=== PATIENT | female | born 1955 | race Caucasian/White ===

== ENCOUNTER → 2017-08-03 | Outpatient (CLI) | payer MEDICARE ==
[~2017-08-03] MED LIST: ACET325 PO; ALUM320SU PO; AMOCLA500 PO; AMOCLA875 PO; ARANESP INJ; ASCO500 PO; ATOR10 PO; Bactrim Ds Tab1 EACH PO; CALCA400CH PO; CALCAVITDA PO; CEPH500 PO; CITA20 PO; CLON.5 PO; Citalopram HBr40 MG PO; ESCI5 PO; FLORINEF; FLUD.1 PO; Ferus150 MG PO; Fludrocortison0.1 MG PO; Humalog100 UNIT/1; Humalog100 UNIT/1 SC; INSLI100I; INSULANPEN SQ; LEVFLO500 PO; LOPE2C PO; LOSA50 PO; MAGOXI400 PO; MELA3 PO; METO10 PO; METO5A PO; MIDO2.5 PO; MIDO5 PO; Midodrine HCl5 MG PO; NOVOLOG PUMP; OMEP20ER PO; ONDA4 PO; OXYACE5T PO; PANT40 PO; PRAV20 PO; PROC10 PO; PROC25S PR; PROM25; PROM25 PO; Polysaccharide150 MG PO; Prednisone20 MG PO; SUCR1SU PO; ZALE5 PO; ZYRTEC10 M2 PO; Zofran Odt4 MG SL; Zofran Odt8 MG SL; [UNRECOGNIZED DRUG - OTHER]
[2017-08-03 12:11] LABS: BASOPHILS ABSOLUTE AUTO 0.03 K/mm3 (0.00-0.23); BASOPHILS PERCENT AUTO 1 % (0-2); EOSINOPHILS ABSOLUTE AUTO 0.07 K/mm3 (0.00-0.68); EOSINOPHILS PERCENT AUTO 2 % (0-6); Hematocrit 39.9 % (33.0-51.0); Hemoglobin 13.6 g/dL (11.5-16.0); IMMATURE GRAN PERCENT AUTO 0 % (0-1); LYMPHOCYTES ABSOLUTE AUTO 1.26 K/mm3 (0.84-5.20); LYMPHOCYTES PERCENT AUTO 32 % (21-46); MONOCYTES ABSOLUTE AUTO 0.32 K/mm3 (0.16-1.47); MONOCYTES PERCENT AUTO 8 % (4-13); Mean Corpuscular HGB 35.9 pg (26.0-34.0); Mean Corpuscular HGB Conc 34.1 g/dL (31.5-36.5); Mean Corpuscular Volume 105 fL (80-100); NEUTROPHILS ABSOLUTE AUTO 2.29 K/mm3 (1.96-9.15); NEUTROPHILS PERCENT AUTO 58 % (41-73); RDW Coefficient Variation 14.2 % (11.7-14.2); RDW Standard Deviation 55.1 fL (35.1-46.3); Red Blood Cell Count 3.79 M/mm3 (3.80-5.20); White Blood Cell Count 3.97 K/mm3 (4.00-11.30)
[2017-08-03 12:32] LABS: Alanine Aminotransfer (ALT/SGP 46 U/L (12-78); Albumin, Blood 4.2 g/dL (3.4-5.0); Albumin/Globulin Ratio 1.1 (0.8-1.8); Alk Phos 78 U/L (40-126); Anion Gap 10 mmol/L (6-16); Aspartate Aminotrans (AST/SGOT 34 U/L (12-37); Bilirubin, Total 0.7 mg/dL (0.1-1.0); Blood Urea Nitrogen 66 mg/dL (8-24); Bun/Creatinine Ratio 23.4 (12.0-20.0); CO2, Blood 27 mmol/L (21-32); CPK Creatine Kinase 47 U/L (26-192); Calcium, Blood 9.6 mg/dL (8.5-10.1); Chloride, Blood 105 mmol/L (98-108); Creatinine, Blood 2.82 mg/dL (0.40-1.00); Free Thyroxine 1.88 ng/dL (0.70-1.60); Globulin, Blood 3.7 g/dL (2.2-4.0); Glomerular Filtration Rate 17 (60-); Glucose, Blood 98 mg/dL (70-99); Potassium, Blood 4.2 mmol/L (3.5-5.5); Sodium, Blood 142 mmol/L (136-145); Thyroid Stimulating Hormone 2.169 uIU/mL (0.360-4.800); Total Protein, Blood 7.9 g/dL (6.4-8.2); Troponin I <0.017 ng/mL (0.000-0.040)
[2017-08-03 13:33] LABS: Mean Platelet Volume 12.2 fL (9.1-12.4); Platelet Count 190 K/mm3 (150-400)
[2017-08-04 12:44] LABS: Antinuclear Antibody Screen Negative (Negative)
== END | disposition home or self-care (01) ==
LOC: LAB EV 12:04 → LAB SHORT 12:04
PROVIDERS: General Practice
DX: E05.90 Thyrotoxicosis, unspecified without thyrotoxic crisis or storm (principal); R41.82 Altered mental status, unspecified; R53.83 Other fatigue
CPT/HCPCS: 80053; 82550; 84439; 84443; 84481; 84484; 85025; 85651; 86038

== ENCOUNTER → 2017-08-04 | Outpatient (CLI) | payer MEDICARE ==
[2017-08-04 11:40] LABS: Bun/Creatinine Ratio 24.6 (12.0-20.0); Calcium, Blood 8.5 mg/dL (8.5-10.1); Creatinine, Blood 2.84 mg/dL (0.40-1.00); Potassium, Blood 4.2 mmol/L (3.5-5.5)
== END ==
LOC: LAB EV 11:30 → LAB SHORT 11:30
PROVIDERS: General Practice
DX: G45.9 Transient cerebral ischemic attack, unspecified (principal)
CPT/HCPCS: 80048

== ENCOUNTER → 2017-08-23 | Outpatient (CLI) | payer MEDICARE ==
[2017-08-23 14:12] LABS: Stool Occult Bld Immuno 1 Negative (NEGATIVE)
== END | disposition home or self-care (01) ==
LOC: LAB EV 07:00
PROVIDERS: Nurse Practitioner Family
DX: E10.65 Type 1 diabetes mellitus with hyperglycemia (principal); E10.43 Type 1 diabetes mellitus with diabetic autonomic (poly)neuropathy
CPT/HCPCS: G0328

== ENCOUNTER 2017-12-27 10:19 | Emergency (ER) | payer MEDICARE ==
[~2017-12-27] VITALS: Ht 170.2 cm; Wt 51.3 kg
[2017-12-27 11:05] LABS: BASOPHILS ABSOLUTE AUTO 0.02 K/mm3 (0.00-0.23); BASOPHILS PERCENT AUTO 0 % (0-2); EOSINOPHILS ABSOLUTE AUTO 0.08 K/mm3 (0.00-0.68); EOSINOPHILS PERCENT AUTO 1 % (0-6); Hematocrit 36.5 % (33.0-51.0); Hemoglobin 12.3 g/dL (11.5-16.0); IMMATURE GRAN ABSOLUTE AUTO 0.03 K/mm3 (0.00-0.10); IMMATURE GRAN PERCENT AUTO 0 % (0-1); LYMPHOCYTES ABSOLUTE AUTO 1.43 K/mm3 (0.84-5.20); LYMPHOCYTES PERCENT AUTO 21 % (21-46); MONOCYTES PERCENT AUTO 6 % (4-13); Mean Corpuscular HGB 34.8 pg (26.0-34.0); Mean Corpuscular HGB Conc 33.7 g/dL (31.5-36.5); Mean Corpuscular Volume 103 fL (80-100); Mean Platelet Volume 11.4 fL (9.1-12.4); NEUTROPHILS ABSOLUTE AUTO 4.88 K/mm3 (1.96-9.15); NEUTROPHILS PERCENT AUTO 71 % (41-73); NRBC ABSOLUTE 0.03 K/mm3 (0.00-0.02); NRBC Auto 0.4 /100 WBC (0.0-0.2); Platelet Count 207 K/mm3 (150-400); RDW Coefficient Variation 13.2 % (11.7-14.2); Red Blood Cell Count 3.53 M/mm3 (3.80-5.20); White Blood Cell Count 6.84 K/mm3 (4.00-11.30)
[2017-12-27 11:24] LABS: Alanine Aminotransfer (ALT/SGP 46 U/L (12-78); Albumin, Blood 3.9 g/dL (3.4-5.0); Albumin/Globulin Ratio 0.9 (0.8-1.8); Alk Phos 104 U/L (50-136); Anion Gap 10 mmol/L (6-16); Aspartate Aminotrans (AST/SGOT 23 U/L (12-37); Bilirubin, Total 0.5 mg/dL (0.1-1.0); Blood Urea Nitrogen 35 mg/dL (8-24); Bun/Creatinine Ratio 15.9 (12.0-20.0); CO2, Blood 30 mmol/L (21-32); Calcium, Blood 10.3 mg/dL (8.5-10.1); Chloride, Blood 98 mmol/L (98-108); Globulin, Blood 4.2 g/dL (2.2-4.0); Glomerular Filtration Rate 24 (60-); Glucose, Blood 211 mg/dL (70-99); Potassium, Blood 3.7 mmol/L (3.5-5.5); Sodium, Blood 138 mmol/L (136-145); Total Protein, Blood 8.1 g/dL (6.4-8.2); Troponin I <0.015 ng/mL (0.000-0.040)
== END 2017-12-27 12:10 | disposition home or self-care (01) ==
LOC: ER 10:19
PROVIDERS: Emergency Medicine
DX: R07.9 Chest pain, unspecified (principal); R00.2 Palpitations; T44.5X5A Adverse effect of predominantly beta-adrenoreceptor agonists, initial encounter; T41.3X5A Adverse effect of local anesthetics, initial encounter; I12.9 Hypertensive chronic kidney disease with stage 1 through stage 4 chronic kidney disease, or unspecified chronic kidney disease; E10.22 Type 1 diabetes mellitus with diabetic chronic kidney disease; N18.4 Chronic kidney disease, stage 4 (severe); E78.5 Hyperlipidemia, unspecified; D63.1 Anemia in chronic kidney disease; Z79.899 Other long term (current) drug therapy
CPT/HCPCS: 36415; 80053; 84484; 85025; 93005; 93010; 99283-25

== ENCOUNTER → 2017-12-27 | Outpatient (CLI) | payer MEDICARE | END | disposition home or self-care (01) | LOC: LAB SHORT 13:18 → PLD 13:18 | DX: N87.9 Dysplasia of cervix uteri, unspecified (principal) | CPT/HCPCS: 88307 ==

== ENCOUNTER → 2018-04-04 | Outpatient (CLI) | payer MEDICARE ==
[~2018-04-04] MED LIST changes: +ACET500 PO; +CLOP75 PO; +DRON2.5 PO; +OXYC1TAB11 PO
[2018-04-04 17:08] LABS: BASOPHILS ABSOLUTE AUTO 0.03 K/mm3 (0.00-0.23); BASOPHILS PERCENT AUTO 0 % (0-2); EOSINOPHILS ABSOLUTE AUTO 0.05 K/mm3 (0.00-0.68); EOSINOPHILS PERCENT AUTO 1 % (0-6); Hematocrit 31.3 % (33.0-51.0); IMMATURE GRAN ABSOLUTE AUTO 0.03 K/mm3 (0.00-0.10); IMMATURE GRAN PERCENT AUTO 0 % (0-1); LYMPHOCYTES ABSOLUTE AUTO 1.11 K/mm3 (0.84-5.20); LYMPHOCYTES PERCENT AUTO 16 % (21-46); MONOCYTES ABSOLUTE AUTO 0.35 K/mm3 (0.16-1.47); MONOCYTES PERCENT AUTO 5 % (4-13); Mean Corpuscular HGB 31.4 pg (26.0-34.0); Mean Corpuscular HGB Conc 31.9 g/dL (31.5-36.5); Mean Corpuscular Volume 98 fL (80-100); Mean Platelet Volume 10.8 fL (9.1-12.4); NEUTROPHILS ABSOLUTE AUTO 5.26 K/mm3 (1.96-9.15); NEUTROPHILS PERCENT AUTO 77 % (41-73); Platelet Count 310 K/mm3 (150-400); RDW Coefficient Variation 13.2 % (11.7-14.2); RDW Standard Deviation 47.3 fL (35.1-46.3); Red Blood Cell Count 3.18 M/mm3 (3.80-5.20); White Blood Cell Count 6.83 K/mm3 (4.00-11.30)
[2018-04-04 17:12] LABS: Bun/Creatinine Ratio 23.9 (12.0-20.0); Calcium, Blood 8.5 mg/dL (8.5-10.1); Creatinine, Blood 2.22 mg/dL (0.40-1.00); Magnesium, Blood 1.3 mg/dL (1.6-2.4); Potassium, Blood 4.1 mmol/L (3.5-5.5)
== END | disposition home or self-care (01) ==
LOC: LAB SHORT 17:02 → LAB 17:02
PROVIDERS: Physician Assistant
DX: E83.42 Hypomagnesemia (principal); R53.83 Other fatigue
CPT/HCPCS: 80048; 83735; 85025

== ENCOUNTER → 2018-06-29 | Outpatient (CLI) | payer MEDICARE ==
[2018-06-29 15:01] LABS: BASOPHILS ABSOLUTE AUTO 0.03 K/mm3 (0.00-0.23); BASOPHILS PERCENT AUTO 1 % (0-2); EOSINOPHILS ABSOLUTE AUTO 0.06 K/mm3 (0.00-0.68); EOSINOPHILS PERCENT AUTO 1 % (0-6); Hematocrit 31.3 % (33.0-51.0); Hemoglobin 10.6 g/dL (11.5-16.0); IMMATURE GRAN PERCENT AUTO 0 % (0-1); LYMPHOCYTES ABSOLUTE AUTO 0.95 K/mm3 (0.84-5.20); LYMPHOCYTES PERCENT AUTO 18 % (21-46); MONOCYTES ABSOLUTE AUTO 0.27 K/mm3 (0.16-1.47); MONOCYTES PERCENT AUTO 5 % (4-13); Mean Corpuscular HGB Conc 33.9 g/dL (31.5-36.5); Mean Corpuscular Volume 100 fL (80-100); Mean Platelet Volume 11.2 fL (9.1-12.4); NEUTROPHILS ABSOLUTE AUTO 3.93 K/mm3 (1.96-9.15); NEUTROPHILS PERCENT AUTO 75 % (41-73); Platelet Count 226 K/mm3 (150-400); RDW Standard Deviation 48.3 fL (35.1-46.3); Red Blood Cell Count 3.12 M/mm3 (3.80-5.20); White Blood Cell Count 5.24 K/mm3 (4.00-11.30)
[2018-06-29 16:20] LABS: Albumin, Blood 3.8 g/dL (3.4-5.0); Albumin/Globulin Ratio 1.1 (0.8-1.8); Bilirubin, Total 0.3 mg/dL (0.1-1.0); Bun/Creatinine Ratio 20.5 (12.0-20.0); Calcium, Blood 7.9 mg/dL (8.5-10.1); Creatinine, Blood 2.19 mg/dL (0.40-1.00); Globulin, Blood 3.6 g/dL (2.2-4.0); Potassium, Blood 4.8 mmol/L (3.5-5.5); Total Protein, Blood 7.4 g/dL (6.4-8.2)
== END | disposition home or self-care (01) ==
LOC: LAB SHORT 14:52 → LAB EV 14:52
PROVIDERS: Physician Assistant
DX: E86.0 Dehydration (principal)
CPT/HCPCS: 80053; 85025

== ENCOUNTER 2018-09-21 11:03 | Emergency (ER) | payer MEDICARE ==
[~2018-09-21] VITALS: Ht 170.2 cm; Wt 49.9 kg
[2018-09-21 11:36] LABS: BASOPHILS ABSOLUTE AUTO 0.02 K/mm3 (0.00-0.23); BASOPHILS PERCENT AUTO 0 % (0-2); EOSINOPHILS PERCENT AUTO 2 % (0-6); Hemoglobin 13.3 g/dL (11.5-16.0); IMMATURE GRAN ABSOLUTE AUTO 0.01 K/mm3 (0.00-0.10); IMMATURE GRAN PERCENT AUTO 0 % (0-1); LYMPHOCYTES ABSOLUTE AUTO 1.49 K/mm3 (0.84-5.20); LYMPHOCYTES PERCENT AUTO 27 % (21-46); MONOCYTES ABSOLUTE AUTO 0.38 K/mm3 (0.16-1.47); MONOCYTES PERCENT AUTO 7 % (4-13); Mean Corpuscular HGB 34.4 pg (26.0-34.0); Mean Corpuscular HGB Conc 31.7 g/dL (31.5-36.5); Mean Corpuscular Volume 109 fL (80-100); Mean Platelet Volume 10.9 fL (9.1-12.4); NEUTROPHILS ABSOLUTE AUTO 3.62 K/mm3 (1.96-9.15); NEUTROPHILS PERCENT AUTO 64 % (41-73); Platelet Count 252 K/mm3 (150-400); RDW Coefficient Variation 13.6 % (11.7-14.2); RDW Standard Deviation 55.1 fL (35.1-46.3); Red Blood Cell Count 3.87 M/mm3 (3.80-5.20); White Blood Cell Count 5.62 K/mm3 (4.00-11.30)
[2018-09-21 11:57] LABS: Troponin I <0.015 ng/mL (0.000-0.040)
[2018-09-21 12:02] LABS: Alanine Aminotransfer (ALT/SGP 38 U/L (12-78); Albumin, Blood 3.6 g/dL (3.4-5.0); Albumin/Globulin Ratio 1.1 (0.8-1.8); Alk Phos 100 U/L (50-136); Anion Gap 6 mmol/L (6-16); Aspartate Aminotrans (AST/SGOT 27 U/L (12-37); Bilirubin, Total 0.5 mg/dL (0.1-1.0); Blood Urea Nitrogen 45 mg/dL (8-24); Bun/Creatinine Ratio 21.5 (12.0-20.0); CO2, Blood 30 mmol/L (21-32); Calcium, Blood 9.4 mg/dL (8.5-10.1); Chloride, Blood 108 mmol/L (98-108); Creatinine, Blood 2.09 mg/dL (0.40-1.00); Globulin, Blood 3.4 g/dL (2.2-4.0); Glomerular Filtration Rate 26 (60-); Glucose, Blood 31 mg/dL (70-99); Potassium, Blood 3.7 mmol/L (3.5-5.5); Sodium, Blood 144 mmol/L (136-145)
== END 2018-09-21 14:26 | disposition home or self-care (01) ==
LOC: ER 11:03
PROVIDERS: Emergency Medicine
DX: E10.649 Type 1 diabetes mellitus with hypoglycemia without coma (principal); R20.2 Paresthesia of skin; G45.9 Transient cerebral ischemic attack, unspecified; Z79.4 Long term (current) use of insulin; Z79.899 Other long term (current) drug therapy; E10.22 Type 1 diabetes mellitus with diabetic chronic kidney disease; N18.4 Chronic kidney disease, stage 4 (severe); E10.42 Type 1 diabetes mellitus with diabetic polyneuropathy; E10.43 Type 1 diabetes mellitus with diabetic autonomic (poly)neuropathy; K31.84 Gastroparesis
CPT/HCPCS: 36415; 70450; 80053; 82947; 84484; 85025; 93005; 93010; 96374; 99285-25; J7799

== ENCOUNTER 2018-09-26 12:54 | Emergency (ER) | payer MEDICARE ==
[~2018-09-26] VITALS: Ht 170.2 cm; Wt 49.9 kg
[2018-09-26 13:36] LABS: BASOPHILS ABSOLUTE AUTO 0.03 K/mm3 (0.00-0.23); BASOPHILS PERCENT AUTO 1 % (0-2); EOSINOPHILS ABSOLUTE AUTO 0.08 K/mm3 (0.00-0.68); EOSINOPHILS PERCENT AUTO 2 % (0-6); Hematocrit 37.3 % (33.0-51.0); Hemoglobin 12.2 g/dL (11.5-16.0); IMMATURE GRAN ABSOLUTE AUTO 0.02 K/mm3 (0.00-0.10); IMMATURE GRAN PERCENT AUTO 0 % (0-1); LYMPHOCYTES ABSOLUTE AUTO 1.18 K/mm3 (0.84-5.20); LYMPHOCYTES PERCENT AUTO 23 % (21-46); MONOCYTES ABSOLUTE AUTO 0.35 K/mm3 (0.16-1.47); MONOCYTES PERCENT AUTO 7 % (4-13); Mean Corpuscular HGB 34.5 pg (26.0-34.0); Mean Corpuscular HGB Conc 32.7 g/dL (31.5-36.5); Mean Platelet Volume 11.6 fL (9.1-12.4); NEUTROPHILS ABSOLUTE AUTO 3.57 K/mm3 (1.96-9.15); NEUTROPHILS PERCENT AUTO 68 % (41-73); Platelet Count 188 K/mm3 (150-400); RDW Coefficient Variation 12.9 % (11.7-14.2); RDW Standard Deviation 50.3 fL (35.1-46.3); Red Blood Cell Count 3.54 M/mm3 (3.80-5.20); White Blood Cell Count 5.23 K/mm3 (4.00-11.30)
[2018-09-26 13:37] LABS: Mean Corpuscular Volume 105 fL (80-100)
[2018-09-26 13:53] LABS: International Normalized Ratio 0.96; Prothrombin Time Results 10.2 Sec (9.7-11.5)
[2018-09-26 14:04] LABS: Albumin, Blood 3.6 g/dL (3.4-5.0); Albumin/Globulin Ratio 1.1 (0.8-1.8); Bilirubin, Total 0.6 mg/dL (0.1-1.0); Bun/Creatinine Ratio 26.7 (12.0-20.0); Calcium, Blood 8.6 mg/dL (8.5-10.1); Creatinine, Blood 1.91 mg/dL (0.40-1.00); Globulin, Blood 3.4 g/dL (2.2-4.0); Potassium, Blood 3.8 mmol/L (3.5-5.5)
[2018-09-26 17:58] LABS: Source, Urine Clean Catch
[2018-09-26 18:19] LABS: Bilirubin, Urine Neg (Neg); Blood, Urine 1+ (Neg); Glucose Qualitative, Urine 1+ (Neg); Ketones, Urine Neg (Neg); Leukocyte Esterase, Urine 2+ (Neg); Nitrite, Urine Neg (Neg); Protein, Urine 2+ (Neg); Specific Gravity, Urine 1.005 (1.003-1.022); Urobilinogen, Urine NORM (Normal)
[2018-09-26 18:28] LABS: Appearance, Urine Clear (Clear); Color, Urine Yellow (P-Yellow)
[2018-09-26 18:29] LABS: Bacteria Many /hpf; Red Blood Cells, Urine 0-2 /hpf (0-2); Squamous Epithelial Cells Mod /hpf (Few)
== END 2018-09-26 18:41 | disposition home or self-care (01) ==
LOC: ER 12:54
PROVIDERS: Physician Assistant
DX: G45.9 Transient cerebral ischemic attack, unspecified (principal); E10.43 Type 1 diabetes mellitus with diabetic autonomic (poly)neuropathy; K31.84 Gastroparesis; Z79.899 Other long term (current) drug therapy
CPT/HCPCS: 36415; 70450; 70496; 70498; 80053; 81001; 82947; 85025; 85610; 87086; 93005; 93010; 96360-59; 96361-59; 99284-25; J7030; Q9967

== ENCOUNTER → 2019-01-22 | Outpatient (CLI) | payer MEDICARE ==
[2019-01-24 16:06] LABS: HPV 16 Negative (Negative); HPV 18 Negative (Negative); HPV OTHER HR TYPES Negative (Negative)
== END | disposition home or self-care (01) ==
LOC: LAB SHORT 09:56 → LAB 09:56
PROVIDERS: Obstetrics & Gynecology
DX: Z01.419 Encounter for gynecological examination (general) (routine) without abnormal findings (principal)
CPT/HCPCS: 87624; G0123

== ENCOUNTER 2019-02-18 18:24 | Emergency (ER) | payer MEDICARE ==
[~2019-02-18] VITALS: Ht 170.2 cm; Wt 49.9 kg
[2019-02-18] MEDS ORDERED: GABA300 (19:08)
[2019-02-18] MEDS ORDERED: Robaxin-750750 MG PO (19:50)
[2019-02-18] MEDS ORDERED: LIDO700A20 TOP (19:50)
[2019-02-18] MEDS ORDERED: Prednisone20 MG PO (19:50)
== END 2019-02-18 19:58 | disposition home or self-care (01) ==
LOC: ER 18:24
DX: G89.29 Other chronic pain (principal); M54.5 Low back pain; E11.43 Type 2 diabetes mellitus with diabetic autonomic (poly)neuropathy; K31.84 Gastroparesis; Z96.41 Presence of insulin pump (external) (internal); Z79.899 Other long term (current) drug therapy; Z86.73 Personal history of transient ischemic attack (TIA), and cerebral infarction without residual deficits
CPT/HCPCS: 99283; J7512

== ENCOUNTER 2019-04-22 18:48 | Inpatient (IN) | payer MEDICARE, OTHER ==
[~2019-04-22] VITALS: Ht 170.2 cm; Wt 48.8 kg
[~2019-04-22 18:48] MED LIST changes: +CALCIUM + VIT1 EACH PO; +GABA300; -Humalog100 UNIT/1; +LIDO700A20 TOP; +Robaxin-750750 MG PO; +THERA1 EACH PO
[2019-04-22 19:28] LABS: BASOPHILS ABSOLUTE AUTO 0.03 K/mm3 (0.00-0.23); BASOPHILS PERCENT AUTO 0 % (0-2); EOSINOPHILS ABSOLUTE AUTO 0.03 K/mm3 (0.00-0.68); EOSINOPHILS PERCENT AUTO 0 % (0-6); Hematocrit 29.6 % (33.0-51.0); Hemoglobin 9.4 g/dL (11.5-16.0); IMMATURE GRAN ABSOLUTE AUTO 0.03 K/mm3 (0.00-0.10); IMMATURE GRAN PERCENT AUTO 0 % (0-1); LYMPHOCYTES ABSOLUTE AUTO 0.95 K/mm3 (0.84-5.20); LYMPHOCYTES PERCENT AUTO 8 % (21-46); MONOCYTES PERCENT AUTO 5 % (4-13); Mean Corpuscular HGB 34.2 pg (26.0-34.0); Mean Corpuscular HGB Conc 31.8 g/dL (31.5-36.5); Mean Corpuscular Volume 108 fL (80-100); Mean Platelet Volume 10.6 fL (9.1-12.4); NEUTROPHILS PERCENT AUTO 85 % (41-73); Platelet Count 276 K/mm3 (150-400); RDW Coefficient Variation 13.4 % (11.7-14.2); RDW Standard Deviation 53.4 fL (35.1-46.3); Red Blood Cell Count 2.75 M/mm3 (3.80-5.20); White Blood Cell Count 11.34 K/mm3 (4.00-11.30)
[2019-04-22 19:46] LABS: Albumin, Blood 2.8 g/dL (3.4-5.0); Albumin/Globulin Ratio 0.7 (0.8-1.8); Bilirubin, Total 0.3 mg/dL (0.1-1.0); Calcium, Blood 8.6 mg/dL (8.5-10.1); Creatinine, Blood 1.89 mg/dL (0.40-1.00); Globulin, Blood 4.2 g/dL (2.2-4.0); Potassium, Blood 4.3 mmol/L (3.5-5.5)
[2019-04-22] MEDS ORDERED: Pravachol40 MG PO (21:05)
[2019-04-22] MEDS ORDERED: Humalog100 UNIT/1 (21:05)
[2019-04-22] MEDS ORDERED: Fludrocortison0.1 MG PO (21:06)
[2019-04-22] MEDS ORDERED: PANT40 PO (21:06)
[2019-04-22] MEDS ORDERED: METO5A PO (21:06)
[2019-04-22] MEDS ORDERED: Anti-Diarrheal2 M1 PO (21:07)
[2019-04-22] MEDS ORDERED: Midodrine HCl2.5 MG PO (21:09)
[2019-04-22] MEDS ORDERED: Gas-X125 MG PO (21:10)
[2019-04-22] MEDS ORDERED: CANNABIS TINCTURE PO (21:14)
--- NOTE | 2019-04-22 23:30 | NUR ---
PT ARRIVAL Pt arrives to PCU 8 at approx 2318 on [facility] with ED RN at bedside. Pt alert and oriented, transferred from [facility] to bed as SBA. VSS. Pt with significant wounds to RLE as documented in photos in chart. Pt with numbness throughout BLE from shins down per pt. Pt able to make needs known with call light, conversing appropriately with staff, answers questions approrpriately and appears to be an accurate historian. Admission completed. See admission assessment for detailed systems assessment. L foot wound dressed in ER. Dressing is CDI. Dressing pulled off this shift by this RN for assessment, foot redressed at this time. CBG >100 x2; CBG to be checked q6 per protocol Pt NPO in preparation for [facility] consult for revascularization. Will continue to monitor.
[2019-04-23] MEDS ORDERED: HYDMOR2 PO (00:21)
[2019-04-23 03:48] LABS: BASOPHILS ABSOLUTE AUTO 0.02 K/mm3 (0.00-0.23); BASOPHILS PERCENT AUTO 0 % (0-2); EOSINOPHILS ABSOLUTE AUTO 0.11 K/mm3 (0.00-0.68); EOSINOPHILS PERCENT AUTO 1 % (0-6); Hematocrit 27.6 % (33.0-51.0); Hemoglobin 8.8 g/dL (11.5-16.0); IMMATURE GRAN ABSOLUTE AUTO 0.04 K/mm3 (0.00-0.10); IMMATURE GRAN PERCENT AUTO 0 % (0-1); LYMPHOCYTES ABSOLUTE AUTO 1.13 K/mm3 (0.84-5.20); LYMPHOCYTES PERCENT AUTO 11 % (21-46); MONOCYTES ABSOLUTE AUTO 0.68 K/mm3 (0.16-1.47); MONOCYTES PERCENT AUTO 7 % (4-13); Mean Corpuscular HGB Conc 31.9 g/dL (31.5-36.5); Mean Corpuscular Volume 107 fL (80-100); Mean Platelet Volume 10.5 fL (9.1-12.4); NEUTROPHILS PERCENT AUTO 81 % (41-73); Platelet Count 227 K/mm3 (150-400); RDW Coefficient Variation 13.2 % (11.7-14.2); RDW Standard Deviation 51.5 fL (35.1-46.3); Red Blood Cell Count 2.59 M/mm3 (3.80-5.20); White Blood Cell Count 10.28 K/mm3 (4.00-11.30)
[2019-04-23 04:06] LABS: Bun/Creatinine Ratio 20.8 (12.0-20.0); Calcium, Blood 7.9 mg/dL (8.5-10.1); Creatinine, Blood 1.73 mg/dL (0.40-1.00); Potassium, Blood 4.2 mmol/L (3.5-5.5)
--- NOTE | 2019-04-23 06:14 | NUR ---
Shift Summary No acute events overnight. Pt c/o pain at time of assumption of care, dilauded 2mg PO given and pt able to sleep in comfort. VSS. CBG>100. BMx1, SBA to BSC. RFoot ulcer dressed and no drainage noted this shift. breathing even and unlabored on RA. ABx infusing per orders. Able to safely swallow PO medications whole with water. Consult to podietry called in and added to ADM. Dr. Schmitz called on cell phone this Am and aware of pt's admission; pt has been NPO since midnight and plan per Dr. Schmitz is to keep on schedule for revascularization this AM. Pt aware of plan of care. Will continue to monitor.
--- NOTE | 2019-04-23 12:13 | NUR ---
CBG 34, PT DENIES SYMPTOMS. ADMINISTERED D50 PER ORDERS/EMAR. RECHECK CBG 169. VSS. NOTIIFED DR Jennifer LUA, NEW ORDERS TO CONTINUE WITH INSULIN PUMP, MEALS AND START D5 WITH 1/2 NORMAL SALINE WITH 20 MEQ POTASSIUM AT 50ML/HR FOR 1 BAG. CHECK CBG Q1 HOUR x3 IF ALL >60, THEN CONTINUE WITH ACHS WHILE EATING AND Q4 WHILE NPO. WILL CONTINUE TO MONITOR.
--- NOTE | 2019-04-23 16:27 | NUR ---
Patient is lying in bed and alert. Patient's spouse, Yoan is bedside. Patient is tearful and admits to some spiritual distress. I listen empathically, normalize patient's experience, reinforce helpful attitudes and practices, and provide pastoral retirement plan counselor and prayer. Patient and Yoan respond well and show signs of restored tomasz. I will continue to remain available to patient and family.
--- NOTE | 2019-04-23 20:03 | NUR ---
SHIFT SUMMARY PT TO BARK [facility]ALER THIS AM AT 0745. PT A&Ox4. CALM AND COOPERATIVE WITH CARE. PT RESTING IN BED, 1 PERSON ASSIST TO BSC PRIOR TO PROCEDURE. PT REPORTS CHRONIC PAIN TO LOWER BACK AND RIGHT HIP, MEDICATED WITH PO DILAUDID, PO TYLENLOL AND 1 DOSE IV DILAUDID, IV DILAUDID WITH POSTIIVE RESULTS. PT DENIES SOB AND NAUSEA DURING SHIFT. PT BACK TO ROOM FROM BARK SCALER AT 1034, BILATERAL GROIN ACCESS. NO CHANGES FROM ASSESSMENTS, NO ADDITIONAL BLEEDING, BRUISING OR HEMATOMA NOTED TO EITHER SITES., PT WAS ABLE TO TOLERATE RASING THE HEAD OF BED TO APPROX 45 DEGREE ANGLE DUE TO BACK PAIN. PULSES STRONG ON BLE WITH DOPPLER AFTER PROCEDURE. RIGHT FOOT 4TH TOE BLACK IN COLOR, 5TH TOE RED, DR OLIVO TO BEDSIDE DURING SHIFT, PLANS FOR OPERATION TOMORROW. PT NPO AFTER MIDNIGHT. CBG POST BARK SCALER LOW AT 34, AMP OF D50 GIVEN PER ORDERS, IV FLUIDS AND CBG CHECKS, 90-150'S FOR REMAINDER OF SHIFT. PLANS TO CONTINUE IV FLUIDS WHILE PT NPO. Q6 CBG STARTING AT 0000 04/24/19 PER ORDERS. ELEVATE BP AT TIMES, FEBRILE THIS AM AND THIS AFTERNOON, RESOLVED WITH EXCESS BLANKET REMOVAL. OTHER VSS. AT 1840 SON AT BEDSIDE THIS EVENING, EXPRESSED CONCERNS THAT PT IS CONFUSED, "LIKE WHEN SHE HAD THE TIA'S". CBG 155, VSS, PT ALERT TO PERSON, EVENT; STATES SHE IS IN [facility] IN [place] HOWEVER QUICKLY CORRECTS SELF AND STATES [facility] IN [place]; PT STATES 04/2019 UNSURE OF DAY OF WEEK OR DATE. RESIDENCE DIRECTOR EQUAL, LEG RAISES WEAK BUT EQUAL. PERRLA. PT HOLDING CONVERSATION, THEN DRIFTS OFF AT TIMES, PT SON'S STATES SHE IS MIXING UP CONVERSATION. NOTIIFED KM RHODES SAND BUFFER, NO NEW ORDERS;CONTINUE TO MONITOR NEURO STATUS. REPORT GIVEN TO ONCOMING RN.
--- NOTE | 2019-04-24 05:24 | NUR ---
SHIFT SUMMARY PT ALERT; APPEARS FRAIL AND FRAGILE; OVERALL WEAKNESS; O2 SATS >95 ON RA; GLUCOSE READINGS DISCUSSED W/ PT; PT STATED SHE DOES NOT NEED HELP W/ INSULIN PUMP AND MONITORS INSULIN; D5 GTT INFUSING IN R AC IV; DENIES NEEDS AT THIS TIME; NPO AFTER MIDNIGHT IN PREPARATION FOR PROCEDURE; CALL LIGHT IN REACH; BED IN LOWEST POSITION; WILL CONTINUE TO MONITOR CLOSELY UNTIL HAND OFF TO DAY SHIFT RN.
[2019-04-24 09:04] LABS: BASOPHILS ABSOLUTE AUTO 0.03 K/mm3 (0.00-0.23); BASOPHILS PERCENT AUTO 0 % (0-2); EOSINOPHILS ABSOLUTE AUTO 0.06 K/mm3 (0.00-0.68); EOSINOPHILS PERCENT AUTO 1 % (0-6); Hematocrit 28.2 % (33.0-51.0); Hemoglobin 8.6 g/dL (11.5-16.0); IMMATURE GRAN ABSOLUTE AUTO 0.06 K/mm3 (0.00-0.10); IMMATURE GRAN PERCENT AUTO 1 % (0-1); LYMPHOCYTES ABSOLUTE AUTO 1.02 K/mm3 (0.84-5.20); LYMPHOCYTES PERCENT AUTO 9 % (21-46); MONOCYTES PERCENT AUTO 4 % (4-13); Mean Corpuscular HGB 33.2 pg (26.0-34.0); Mean Corpuscular HGB Conc 30.5 g/dL (31.5-36.5); Mean Corpuscular Volume 109 fL (80-100); Mean Platelet Volume 10.7 fL (9.1-12.4); NEUTROPHILS ABSOLUTE AUTO 9.69 K/mm3 (1.96-9.15); NEUTROPHILS PERCENT AUTO 85 % (41-73); Platelet Count 244 K/mm3 (150-400); RDW Coefficient Variation 13.4 % (11.7-14.2); RDW Standard Deviation 53.5 fL (35.1-46.3); Red Blood Cell Count 2.59 M/mm3 (3.80-5.20); White Blood Cell Count 11.36 K/mm3 (4.00-11.30)
[2019-04-24 09:23] LABS: Albumin, Blood 2.1 g/dL (3.4-5.0); Albumin/Globulin Ratio 0.6 (0.8-1.8); Bilirubin, Total 0.4 mg/dL (0.1-1.0); Bun/Creatinine Ratio 16.9 (12.0-20.0); Calcium, Blood 7.6 mg/dL (8.5-10.1); Creatinine, Blood 1.77 mg/dL (0.40-1.00); Globulin, Blood 3.5 g/dL (2.2-4.0); Potassium, Blood 4.7 mmol/L (3.5-5.5); Total Protein, Blood 5.6 g/dL (6.4-8.2)
--- NOTE | 2019-04-24 09:54 | NUR ---
TELLO RN AT BEDSIDE TO ADRESS BLOOD SUGAR
--- NOTE | 2019-04-24 11:26 | NUR ---
Spiritual care visit conducted. Patient is sitting up in bed and alert. Patient's spouse Yoan, is bedside. They inform me that patient hasn't had surgery yet and that the longer they wait the more anxious the patient gets. I listen empathically and provide scripture recitaion and prayer. Patient responds well and shows signs of reduced stress. I will continue to remain available to patient and family.
--- NOTE | 2019-04-24 12:10 | NUR ---
PT TO PACU
--- NOTE | 2019-04-24 13:10 | NUR ---
History, Chart, Medications and Allergies reviewed before start of procedure. Lungs clear T/O to Auscultation. Patient confirms NPO status and agrees with scheduled surgery. Pre-Op teaching done. Pt verbalizes understanding.
[2019-04-24 13:43] LABS: Vancomycin, Trough 7.7 ug/mL (5.0-10.0)
--- NOTE | 2019-04-24 15:00 | NUR ---
PT REMAINS IN PACU
--- NOTE | 2019-04-24 17:03 | NUR ---
PT WITH 0 PAIN WHILE NOT MOVING AND A 10 IF SHE MOVES
--- NOTE | 2019-04-24 17:04 | NUR ---
ZOSYN WAS HUNG FIRST VANCOMYCIN HAS NOT ARRIVED FROM PHARMACY
--- NOTE | 2019-04-24 17:05 | NUR ---
SHIFT NOTE PT WAS UP TO BSC WITHOUT ASSISTANCE THIS AM. PT OTHERWISE WITH NO ACUTE CHANGES. PT TO OR THIS AFTERNOON WHERE SHE HAD AMPUTATION OF 3RD AND 4TH TOES ON RT FOOT BY DR OLIVO. PT RETURNED WITH POORLY CONTROLLED PAIN THAT WAS IMMEDIATELY TREATED WITH 1MG DILAUDID UPON ARRIVAL TO ROOM FROM PACU. PT REPORTS PAIN IS 0 IF SHE IS LYING STILL BUT IS A 10 IF SHE MOVES AT ALL
--- NOTE | 2019-04-25 05:23 | NUR ---
SHIFT SUMMARY. AT THE BEGINNING OF THE SHIFT CHIEF TECHNICIAN X RAY KM RHODES WAS NOTIFIED OF THE LACK OF A SLIDING SCALE. THIS PATIENT NORMALLY USES AN INSULIN PUMP, HOWEVER IT WAS REMOVED IN THE OR AND SHE DOES NOT HAVE THE SUPPLIES TO REPLACE THE PUMP SYRINGE. PATIENT IS EATING, DRINKING AND VOIDING. PATIENT'S PAIN IS LESS THAT IT WAS AT THE BEGINNING OF SHIFT. SHE WAS MEDICATED ONCE BY THIS RN. NO ACUTE CHANGES. CALL LIGHT USED ONCE AND IT IW WITHIN REACH.
[2019-04-25 08:36] LABS: BASOPHILS ABSOLUTE AUTO 0.02 K/mm3 (0.00-0.23); BASOPHILS PERCENT AUTO 0 % (0-2); EOSINOPHILS PERCENT AUTO 0 % (0-6); Hematocrit 30.6 % (33.0-51.0); Hemoglobin 9.6 g/dL (11.5-16.0); IMMATURE GRAN PERCENT AUTO 1 % (0-1); LYMPHOCYTES ABSOLUTE AUTO 0.22 K/mm3 (0.84-5.20); LYMPHOCYTES PERCENT AUTO 1 % (21-46); MONOCYTES PERCENT AUTO 1 % (4-13); Mean Corpuscular HGB 33.9 pg (26.0-34.0); Mean Corpuscular HGB Conc 31.4 g/dL (31.5-36.5); Mean Corpuscular Volume 108 fL (80-100); Mean Platelet Volume 10.9 fL (9.1-12.4); NEUTROPHILS ABSOLUTE AUTO 15.09 K/mm3 (1.96-9.15); NEUTROPHILS PERCENT AUTO 97 % (41-73); Platelet Count 268 K/mm3 (150-400); RDW Coefficient Variation 13.1 % (11.7-14.2); RDW Standard Deviation 52.4 fL (35.1-46.3); Red Blood Cell Count 2.83 M/mm3 (3.80-5.20); White Blood Cell Count 15.63 K/mm3 (4.00-11.30)
[2019-04-25 09:02] LABS: Albumin, Blood 2.4 g/dL (3.4-5.0); Albumin/Globulin Ratio 0.5 (0.8-1.8); Bilirubin, Total 0.5 mg/dL (0.1-1.0); Calcium, Blood 7.7 mg/dL (8.5-10.1); Creatinine, Blood 1.83 mg/dL (0.40-1.00); Globulin, Blood 4.4 g/dL (2.2-4.0); Potassium, Blood 5.8 mmol/L (3.5-5.5); Total Protein, Blood 6.8 g/dL (6.4-8.2)
--- NOTE | 2019-04-25 11:50 | NUR ---
Spiritual care visit conducted. Patient is sitting up in bed and alert. Patient's spouse, Yoan , is bedside. Patient explains how the surgery went, and what the plans are going forward. I provide spiritual guidance, companionship and prayer. Patient and Yoan voice their appreciation for the time and care. I will continue to remain available to patient and family.
--- NOTE | 2019-04-25 12:00 | NUR ---
PT'S CHEMBG CONTINUES TO RAISE DR LUA CALLED FOR NEW INSULIN ORDERS, ORDER GIVEN TO RESUME PT'S INSULIN PUMP FROM HOME AND PROVIDE INSLIN COVERAGE VIA CARB COUNT FOR COVERAGE AND TO STOP D5. D5 IS STOPPED, PT STS THAT SHE DOES NOT HAVE THE INSULIN FOR HER PUMP AND WILL NOT BE ABLE TO REHOOK HER PUMP AT THIS TIME. DR LUA IS AGAIN CALLED THIS TIME BY LUIS JAVED, TELEPHONE TO COVER BL.OOD SUGARS PER ORDERS IN PLACE UNTIL PT'S SPOUSE CAN BRING NEW CARTRIDGE IN
[2019-04-25 12:32] LABS: Vancomycin, Random 16.7 ug/mL
--- NOTE | 2019-04-25 13:24 | NUR ---
PT RELUCTANT FOR CARB COUNT INUSLIN DOSE, PT IS UNWILLING TO REPLACE HER INSULIN PUMP AT THIS TIME STS THAT HI READING "ISN'T GOOD ENOUGH" STS THAT SHE WILL WAIT UNTIL CONFIRMATION RESULTS HAVE RETURNED. CARB COUNT DOSE IS HELD AT THIS TIME PT WANTS RESULT OF DRAW FIRST
--- NOTE | 2019-04-25 14:05 | NUR ---
PT AGREES TO ALLOW CARB COUNT DOSE OF INSULIN TO BE GIVEN. PT CONTINUES TO REFUSE TO PLACE INSULIN PUMP, NIYA CLINICAL COORDINATOR ASKED TO ASSIST PT WITH SET UP OF MACHINE PT EXPRESSED GREAT CONCERN OVER REPLACING HER INSULIN PUMP
[2019-04-25 14:08] LABS: Glucose, Blood 595 mg/dL (70-99)
--- NOTE | 2019-04-25 14:11 | NUR ---
DR LUA CALLED TO REPORT GLUCOSE LEVELS, NO ANSWER MESSAGE WAS LEFT. PT DID AGREE TO PLACE HER INSULIN PUMP AFTER SPEAKING WITH NIYA PORTER
[2019-04-25 15:28] LABS: Glucose, Blood 582 mg/dL (70-99)
[2019-04-25 16:59] LABS: Calcium, Blood 7.3 mg/dL (8.5-10.1); Potassium, Blood 5.6 mmol/L (3.5-5.5)
[2019-04-25 17:08] LABS: Bun/Creatinine Ratio 26.6 (12.0-20.0); Creatinine, Blood 2.03 mg/dL (0.40-1.00)
[2019-04-25 18:00] LABS: Glucose, Blood 502 mg/dL (70-99)
--- NOTE | 2019-04-25 18:44 | NUR ---
SHIFT NOTE PT HAD A SUDDEN INCREASE IN BLOOD SUGARS THIS AFTERNOON, DR LUA WAS CONSULTED T/O THE AFTERNOON WITH CHANGES IN BLOOD SUGAR, HE WAS ALSO BACK IN TO SEE PT AT THE END OF THIS SHIFT. BY THE END OF THIS PT'S BLOOD SUGAR HAS LOWERED TO 450. PT HAS HER PERSONAL INSULIN PUMP IN PLACE. WILL CONTINUE TO MOPNITOR SUGARS
[2019-04-26 04:12] LABS: BASOPHILS ABSOLUTE AUTO 0.01 K/mm3 (0.00-0.23); BASOPHILS PERCENT AUTO 0 % (0-2); EOSINOPHILS ABSOLUTE AUTO 0.01 K/mm3 (0.00-0.68); EOSINOPHILS PERCENT AUTO 0 % (0-6); Hematocrit 26.1 % (33.0-51.0); Hemoglobin 8.3 g/dL (11.5-16.0); IMMATURE GRAN ABSOLUTE AUTO 0.09 K/mm3 (0.00-0.10); IMMATURE GRAN PERCENT AUTO 1 % (0-1); LYMPHOCYTES ABSOLUTE AUTO 0.72 K/mm3 (0.84-5.20); LYMPHOCYTES PERCENT AUTO 4 % (21-46); MONOCYTES ABSOLUTE AUTO 0.62 K/mm3 (0.16-1.47); MONOCYTES PERCENT AUTO 4 % (4-13); Mean Corpuscular HGB 33.7 pg (26.0-34.0); Mean Corpuscular HGB Conc 31.8 g/dL (31.5-36.5); Mean Corpuscular Volume 106 fL (80-100); NEUTROPHILS ABSOLUTE AUTO 16.42 K/mm3 (1.96-9.15); NEUTROPHILS PERCENT AUTO 92 % (41-73); Platelet Count 241 K/mm3 (150-400); RDW Coefficient Variation 13.2 % (11.7-14.2); RDW Standard Deviation 50.8 fL (35.1-46.3); Red Blood Cell Count 2.46 M/mm3 (3.80-5.20); White Blood Cell Count 17.87 K/mm3 (4.00-11.30)
[2019-04-26 04:30] LABS: Albumin/Globulin Ratio 0.6 (0.8-1.8); Bilirubin, Total 0.4 mg/dL (0.1-1.0); Calcium, Blood 6.9 mg/dL (8.5-10.1); Globulin, Blood 3.5 g/dL (2.2-4.0); Potassium, Blood 5.1 mmol/L (3.5-5.5); Total Protein, Blood 5.5 g/dL (6.4-8.2)
--- NOTE | 2019-04-26 05:52 | NUR ---
SHIFT SUMMARY PT MEDICAL NO TELE STATUS. A&O X4, PLEASANT AND COOPERATIVE. VSS. SPO2 > 92% ON RA. PT WEARING PERSONAL INSULIN PUMP. CBG's IN 300's THIS SHIFT. PT's R FOOT WRAPPED IN MANOJ WRAP W/ R FOOT IN POST-OP SHOE AFTER 4TH & 5TH TOES ON R FOOT AMPUTATED. L FOOT PEDAL PULSE DETECTED USING DOPPLER. PT SBA W/ FWW TO BSC. PT W/ 2 LOOSE BMs THIS SHIFT, MEDICATED W/ PRN IMODIUM PER PT REQUEST/EMAR. WILL CONTINUE TO MONITOR AND PROVIDE CARE UNTIL REPORT OFF TO DAY SHIFT RN.
[2019-04-26] MEDS ORDERED: CLIN150 PO (11:11)
--- NOTE | 2019-04-26 12:14 | NUR ---
DISCHARGE INSTRUCTIONS GONE OVER WITH PT AND FAMILY. EMF PACKAGING SALES ALSO AT BEDSIDE PROVIDING DISCHARGE INFORMATION. PT AND FAMILY STATED UNDERSTANDING. PT UNDERSTANDS TO ESTHETICIAN NEW PRESCRIPTIONS AT PHARMACY. BELONGINGS GATHERED AND SENT WITH PT. PT WAS ESCORTED OUT VIA W/C BY [facility].
== END 2019-04-26 12:12 | disposition home or self-care (01) | DRG 253 ==
LOC: ER 18:48 → PCU 21:47
PROVIDERS: Family Medicine; Nurse Practitioner Acute Care; Pharmacist; Physician Assistant; Podiatrist Foot & Ankle Surgery; ADMIT Hospitalist
PROC: 047K3ZZ Dilation of Right Femoral Artery, Percutaneous Approach (ICD-10-PCS; 2019-04-23)
PROC: 047R3ZZ Dilation of Right Posterior Tibial Artery, Percutaneous Approach (ICD-10-PCS; 2019-04-23)
PROC: 0Y6X0Z0 Detachment at Right 5th Toe, Complete, Open Approach (ICD-10-PCS; 2019-04-24)
PROC: B41FYZZ Fluoroscopy of Right Lower Extremity Arteries using Other Contrast (ICD-10-PCS; 2019-04-24)
PROC: 0Y6V0Z1 Detachment at Right 4th Toe, High, Open Approach (ICD-10-PCS; principal; 2019-04-24 14:00)
DX: E10.52 Type 1 diabetes mellitus with diabetic peripheral angiopathy with gangrene (principal); I96 Gangrene, not elsewhere classified; N18.4 Chronic kidney disease, stage 4 (severe); Z79.4 Long term (current) use of insulin; F41.8 Other specified anxiety disorders; E10.21 Type 1 diabetes mellitus with diabetic nephropathy; E10.319 Type 1 diabetes mellitus with unspecified diabetic retinopathy without macular edema; E10.40 Type 1 diabetes mellitus with diabetic neuropathy, unspecified; E10.43 Type 1 diabetes mellitus with diabetic autonomic (poly)neuropathy; K31.84 Gastroparesis; Z96.41 Presence of insulin pump (external) (internal); E11.22 Type 2 diabetes mellitus with diabetic chronic kidney disease; E10.610 Type 1 diabetes mellitus with diabetic neuropathic arthropathy; E78.00 Pure hypercholesterolemia, unspecified; D63.1 Anemia in chronic kidney disease; R26.2 Difficulty in walking, not elsewhere classified; D50.9 Iron deficiency anemia, unspecified; E10.649 Type 1 diabetes mellitus with hypoglycemia without coma; G89.4 Chronic pain syndrome
CPT/HCPCS: 36415; 37224; 37228; 73630; 75625; 75710; 75716; 75774; 80048; 80053; 80202; 82947; 85025; 85347; 85651; 87040; 88305; 88311; 96365; 96375; 97110; 97116; 97162; 97530; 99152; 99153; 99284-25; A9270; C1725; C1760; C1769; C1887; C1894; C2623; J0696; J1100; J1170; J1644; J1650; J1815; J2250; J2405; J2543; J2704; J2765; J3010; J3370; J7030; J7040; J7050; J7120; J7799; Q9967

== ENCOUNTER 2019-05-05 19:46 | Emergency (ER) | payer MEDICARE, OTHER ==
[~2019-05-05] VITALS: Ht 170.2 cm; Wt 49.9 kg
[~2019-05-05 19:46] MED LIST changes: +Anti-Diarrheal2 M1 PO; +CANNABIS TINCTURE PO; +CLIN150 PO; +Gas-X125 MG PO; +HYDMOR2 PO; +Humalog100 UNIT/1; +Midodrine HCl2.5 MG PO; +Pravachol40 MG PO
== END 2019-05-06 00:25 | disposition home or self-care (01) ==
LOC: ER 19:46
DX: M54.40 Lumbago with sciatica, unspecified side (principal); G89.29 Other chronic pain; E11.9 Type 2 diabetes mellitus without complications; Z88.8 Allergy status to other drugs, medicaments and biological substances; Z86.73 Personal history of transient ischemic attack (TIA), and cerebral infarction without residual deficits; Z98.890 Other specified postprocedural states
CPT/HCPCS: 96374; 96375; 99283-25; J1170; J1885; J3010

== ENCOUNTER 2019-06-12 00:30 | Day surgery (SDC) | payer MEDICARE | END 2019-06-12 22:51 | disposition home or self-care (01) | LOC: WOUND 00:30 | DX: E10.621 Type 1 diabetes mellitus with foot ulcer (principal); E10.51 Type 1 diabetes mellitus with diabetic peripheral angiopathy without gangrene; E10.22 Type 1 diabetes mellitus with diabetic chronic kidney disease; L97.515 Non-pressure chronic ulcer of other part of right foot with muscle involvement without evidence of necrosis; S81.802A Unspecified open wound, left lower leg, initial encounter; E10.42 Type 1 diabetes mellitus with diabetic polyneuropathy; N18.9 Chronic kidney disease, unspecified; X58.XXXA Exposure to other specified factors, initial encounter; D63.1 Anemia in chronic kidney disease; Z88.5 Allergy status to narcotic agent; Z88.8 Allergy status to other drugs, medicaments and biological substances; Z79.899 Other long term (current) drug therapy | CPT/HCPCS: G0463 ==

== ENCOUNTER 2019-06-18 00:50 | Day surgery (SDC) | payer MEDICARE | END 2019-06-18 12:00 | disposition home or self-care (01) | LOC: WOUND 00:50 | DX: E10.621 Type 1 diabetes mellitus with foot ulcer (principal); L97.519 Non-pressure chronic ulcer of other part of right foot with unspecified severity; L97.129 Non-pressure chronic ulcer of left thigh with unspecified severity; S81.802D Unspecified open wound, left lower leg, subsequent encounter; E10.51 Type 1 diabetes mellitus with diabetic peripheral angiopathy without gangrene; E10.22 Type 1 diabetes mellitus with diabetic chronic kidney disease; E10.42 Type 1 diabetes mellitus with diabetic polyneuropathy; N18.9 Chronic kidney disease, unspecified; D63.1 Anemia in chronic kidney disease | CPT/HCPCS: 87071; 87075; 87077; 87081; 87205 ==

== ENCOUNTER → 2019-06-19 | Outpatient (CLI) | payer MEDICARE | END | disposition home or self-care (01) | LOC: LAB SHORT 13:47 → PLD 13:47 | DX: R87.612 Low grade squamous intraepithelial lesion on cytologic smear of cervix (LGSIL) (principal) | CPT/HCPCS: 88305 ==

== ENCOUNTER 2019-06-25 00:12 | Day surgery (SDC) | payer MEDICARE | END 2019-06-25 22:48 | disposition home or self-care (01) | LOC: WOUND 00:12 | DX: E10.621 Type 1 diabetes mellitus with foot ulcer (principal); E10.622 Type 1 diabetes mellitus with other skin ulcer; E10.22 Type 1 diabetes mellitus with diabetic chronic kidney disease; E10.42 Type 1 diabetes mellitus with diabetic polyneuropathy; L97.515 Non-pressure chronic ulcer of other part of right foot with muscle involvement without evidence of necrosis; L97.129 Non-pressure chronic ulcer of left thigh with unspecified severity; S81.802D Unspecified open wound, left lower leg, subsequent encounter; N18.9 Chronic kidney disease, unspecified; D63.1 Anemia in chronic kidney disease; Z79.899 Other long term (current) drug therapy ==

== ENCOUNTER 2019-07-02 00:21 | Day surgery (SDC) | payer MEDICARE | END 2019-07-02 22:48 | disposition home or self-care (01) | LOC: WOUND 00:21 | DX: E10.621 Type 1 diabetes mellitus with foot ulcer (principal); L97.519 Non-pressure chronic ulcer of other part of right foot with unspecified severity; L97.129 Non-pressure chronic ulcer of left thigh with unspecified severity; S81.802D Unspecified open wound, left lower leg, subsequent encounter; E10.51 Type 1 diabetes mellitus with diabetic peripheral angiopathy without gangrene; E10.22 Type 1 diabetes mellitus with diabetic chronic kidney disease; E10.42 Type 1 diabetes mellitus with diabetic polyneuropathy; D63.1 Anemia in chronic kidney disease; Z89.422 Acquired absence of other left toe(s) | CPT/HCPCS: G0463 ==

== ENCOUNTER 2019-07-09 00:18 | Day surgery (SDC) | payer MEDICARE, OTHER ==
[2019-07-15] MEDS ORDERED: IRON150C PO (15:08)
[2019-07-15] MEDS ORDERED: THERA1 EACH PO (15:08)
[2019-07-16] MEDS ORDERED: Amoxicillin875 MG PO (07:11)
[2019-07-30] MEDS ORDERED: CLOP75 PO (17:34)
[2019-07-30] MEDS ORDERED: PRAV20 PO (17:35)
== END 2019-07-09 22:45 | disposition home or self-care (01) ==
LOC: WOUND 00:18
DX: E10.621 Type 1 diabetes mellitus with foot ulcer (principal); L97.519 Non-pressure chronic ulcer of other part of right foot with unspecified severity; L97.129 Non-pressure chronic ulcer of left thigh with unspecified severity; S81.802D Unspecified open wound, left lower leg, subsequent encounter; E10.51 Type 1 diabetes mellitus with diabetic peripheral angiopathy without gangrene; E10.22 Type 1 diabetes mellitus with diabetic chronic kidney disease; N18.9 Chronic kidney disease, unspecified; E10.42 Type 1 diabetes mellitus with diabetic polyneuropathy

== ENCOUNTER 2019-07-22 09:39 | Day surgery (SDC) | payer MEDICARE ==
[~2019-07-22 09:39] MED LIST changes: +Amoxicillin875 MG PO; +IRON150C PO
[2019-07-30] MEDS ORDERED: CLOP75 PO (17:34)
[2019-07-30] MEDS ORDERED: PRAV20 PO (17:35)
== END 2019-07-22 23:07 | disposition home or self-care (01) ==
LOC: WOUND 09:39
DX: E10.621 Type 1 diabetes mellitus with foot ulcer (principal); L97.519 Non-pressure chronic ulcer of other part of right foot with unspecified severity; L97.129 Non-pressure chronic ulcer of left thigh with unspecified severity; S81.802D Unspecified open wound, left lower leg, subsequent encounter; E10.51 Type 1 diabetes mellitus with diabetic peripheral angiopathy without gangrene; E10.22 Type 1 diabetes mellitus with diabetic chronic kidney disease; N18.9 Chronic kidney disease, unspecified; E10.42 Type 1 diabetes mellitus with diabetic polyneuropathy
CPT/HCPCS: 87071; 87075; 87205

== ENCOUNTER 2019-07-29 01:14 | Day surgery (SDC) | payer MEDICARE ==
[2019-07-30] MEDS ORDERED: CLOP75 PO (17:34)
[2019-07-30] MEDS ORDERED: PRAV20 PO (17:35)
== END 2019-07-29 22:52 | disposition home or self-care (01) ==
LOC: WOUND 01:14
DX: E10.621 Type 1 diabetes mellitus with foot ulcer (principal); L97.519 Non-pressure chronic ulcer of other part of right foot with unspecified severity; L97.129 Non-pressure chronic ulcer of left thigh with unspecified severity; E10.51 Type 1 diabetes mellitus with diabetic peripheral angiopathy without gangrene; E10.22 Type 1 diabetes mellitus with diabetic chronic kidney disease; E10.42 Type 1 diabetes mellitus with diabetic polyneuropathy; N18.9 Chronic kidney disease, unspecified

== ENCOUNTER 2019-08-05 00:09 | Day surgery (SDC) | payer MEDICARE | END 2019-08-05 22:39 | disposition home or self-care (01) | LOC: WOUND 00:09 | DX: E10.621 Type 1 diabetes mellitus with foot ulcer (principal); L97.519 Non-pressure chronic ulcer of other part of right foot with unspecified severity; L97.129 Non-pressure chronic ulcer of left thigh with unspecified severity; E10.51 Type 1 diabetes mellitus with diabetic peripheral angiopathy without gangrene; E10.22 Type 1 diabetes mellitus with diabetic chronic kidney disease; E10.42 Type 1 diabetes mellitus with diabetic polyneuropathy; N18.9 Chronic kidney disease, unspecified; Z79.02 Long term (current) use of antithrombotics/antiplatelets; Z79.4 Long term (current) use of insulin; Z79.899 Other long term (current) drug therapy; Z89.431 Acquired absence of right foot ==

== ENCOUNTER 2019-08-06 08:58 | Day surgery (SDC) | payer MEDICARE | END 2019-08-06 22:49 | disposition home or self-care (01) | LOC: HBO 08:58 | DX: E10.621 Type 1 diabetes mellitus with foot ulcer (principal); L97.519 Non-pressure chronic ulcer of other part of right foot with unspecified severity; E10.622 Type 1 diabetes mellitus with other skin ulcer; L97.129 Non-pressure chronic ulcer of left thigh with unspecified severity; E10.51 Type 1 diabetes mellitus with diabetic peripheral angiopathy without gangrene; E10.22 Type 1 diabetes mellitus with diabetic chronic kidney disease; N18.9 Chronic kidney disease, unspecified; E10.42 Type 1 diabetes mellitus with diabetic polyneuropathy | CPT/HCPCS: 82947; G0277 ==

== ENCOUNTER 2019-08-08 12:37 | Day surgery (SDC) | payer MEDICARE | END 2019-08-08 22:45 | disposition home or self-care (01) | LOC: HBO 12:37 | DX: E10.621 Type 1 diabetes mellitus with foot ulcer (principal); E10.51 Type 1 diabetes mellitus with diabetic peripheral angiopathy without gangrene; L97.519 Non-pressure chronic ulcer of other part of right foot with unspecified severity; L97.129 Non-pressure chronic ulcer of left thigh with unspecified severity; E10.22 Type 1 diabetes mellitus with diabetic chronic kidney disease; N18.9 Chronic kidney disease, unspecified | CPT/HCPCS: 82947; G0277 ==

== ENCOUNTER 2019-08-09 10:06 | Day surgery (SDC) | payer MEDICARE | END 2019-08-09 23:10 | disposition home or self-care (01) | LOC: HBO 10:06 | DX: E10.621 Type 1 diabetes mellitus with foot ulcer (principal); L97.519 Non-pressure chronic ulcer of other part of right foot with unspecified severity; L97.129 Non-pressure chronic ulcer of left thigh with unspecified severity; E10.51 Type 1 diabetes mellitus with diabetic peripheral angiopathy without gangrene; E10.22 Type 1 diabetes mellitus with diabetic chronic kidney disease; E10.42 Type 1 diabetes mellitus with diabetic polyneuropathy; N18.9 Chronic kidney disease, unspecified | CPT/HCPCS: 82947; G0277 ==

== ENCOUNTER 2019-08-12 00:10 | Day surgery (SDC) | payer MEDICARE | END 2019-08-12 22:56 | disposition home or self-care (01) | LOC: HBO 00:10 | DX: E10.621 Type 1 diabetes mellitus with foot ulcer (principal); L97.519 Non-pressure chronic ulcer of other part of right foot with unspecified severity; L97.129 Non-pressure chronic ulcer of left thigh with unspecified severity; E10.51 Type 1 diabetes mellitus with diabetic peripheral angiopathy without gangrene; E10.22 Type 1 diabetes mellitus with diabetic chronic kidney disease; N18.9 Chronic kidney disease, unspecified; E10.42 Type 1 diabetes mellitus with diabetic polyneuropathy | CPT/HCPCS: 82947; G0277 ==

== ENCOUNTER 2019-08-13 00:27 | Day surgery (SDC) | payer MEDICARE | END 2019-08-13 22:36 | disposition home or self-care (01) | LOC: HBO 00:27 | DX: E10.621 Type 1 diabetes mellitus with foot ulcer (principal); L97.519 Non-pressure chronic ulcer of other part of right foot with unspecified severity; L97.129 Non-pressure chronic ulcer of left thigh with unspecified severity; E10.51 Type 1 diabetes mellitus with diabetic peripheral angiopathy without gangrene; E10.22 Type 1 diabetes mellitus with diabetic chronic kidney disease; N18.9 Chronic kidney disease, unspecified; E10.42 Type 1 diabetes mellitus with diabetic polyneuropathy | CPT/HCPCS: 82947; G0277 ==

== ENCOUNTER 2019-08-14 00:19 | Day surgery (SDC) | payer MEDICARE | END 2019-08-14 22:55 | disposition home or self-care (01) | LOC: HBO 00:19 | DX: E10.621 Type 1 diabetes mellitus with foot ulcer (principal); L97.519 Non-pressure chronic ulcer of other part of right foot with unspecified severity; L97.129 Non-pressure chronic ulcer of left thigh with unspecified severity; E10.51 Type 1 diabetes mellitus with diabetic peripheral angiopathy without gangrene; E10.22 Type 1 diabetes mellitus with diabetic chronic kidney disease; E10.42 Type 1 diabetes mellitus with diabetic polyneuropathy; N18.9 Chronic kidney disease, unspecified | CPT/HCPCS: 82947; G0277 ==

== ENCOUNTER 2019-08-14 23:46 | Emergency (ER) | payer MEDICARE ==
[~2019-08-14] VITALS: Ht 170.2 cm; Wt 49.9 kg
== END 2019-08-15 01:35 | disposition home or self-care (01) ==
LOC: ER 23:46
DX: S93.105A Unspecified dislocation of left toe(s), initial encounter (principal); E11.43 Type 2 diabetes mellitus with diabetic autonomic (poly)neuropathy; K31.84 Gastroparesis; Z88.8 Allergy status to other drugs, medicaments and biological substances; Z79.899 Other long term (current) drug therapy; Z79.4 Long term (current) use of insulin; Z86.73 Personal history of transient ischemic attack (TIA), and cerebral infarction without residual deficits; W01.0XXA Fall on same level from slipping, tripping and stumbling without subsequent striking against object, initial encounter
CPT/HCPCS: 73660; 99283-25

== ENCOUNTER 2019-08-16 00:16 | Day surgery (SDC) | payer MEDICARE | END 2019-08-16 22:39 | disposition home or self-care (01) | LOC: HBO 00:16 | DX: E10.621 Type 1 diabetes mellitus with foot ulcer (principal); L97.519 Non-pressure chronic ulcer of other part of right foot with unspecified severity; L97.129 Non-pressure chronic ulcer of left thigh with unspecified severity; E10.51 Type 1 diabetes mellitus with diabetic peripheral angiopathy without gangrene; E10.22 Type 1 diabetes mellitus with diabetic chronic kidney disease; E10.42 Type 1 diabetes mellitus with diabetic polyneuropathy; N18.9 Chronic kidney disease, unspecified; Z79.4 Long term (current) use of insulin; Z79.899 Other long term (current) drug therapy | CPT/HCPCS: 82947; G0277 ==

== ENCOUNTER 2019-08-16 00:21 | Day surgery (SDC) | payer MEDICARE | END 2019-08-16 22:40 | disposition home or self-care (01) | LOC: WOUND 00:21 | DX: E10.621 Type 1 diabetes mellitus with foot ulcer (principal); L97.519 Non-pressure chronic ulcer of other part of right foot with unspecified severity; L97.129 Non-pressure chronic ulcer of left thigh with unspecified severity; E10.22 Type 1 diabetes mellitus with diabetic chronic kidney disease; E10.42 Type 1 diabetes mellitus with diabetic polyneuropathy; E10.51 Type 1 diabetes mellitus with diabetic peripheral angiopathy without gangrene; N18.9 Chronic kidney disease, unspecified; Z89.431 Acquired absence of right foot; Z79.4 Long term (current) use of insulin; Z79.899 Other long term (current) drug therapy ==

== ENCOUNTER 2019-08-19 00:29 | Day surgery (SDC) | payer MEDICARE | END 2019-08-19 22:38 | disposition home or self-care (01) | LOC: HBO 00:29 | DX: E10.621 Type 1 diabetes mellitus with foot ulcer (principal); L97.519 Non-pressure chronic ulcer of other part of right foot with unspecified severity; E10.51 Type 1 diabetes mellitus with diabetic peripheral angiopathy without gangrene; E10.22 Type 1 diabetes mellitus with diabetic chronic kidney disease; E10.42 Type 1 diabetes mellitus with diabetic polyneuropathy | CPT/HCPCS: 82947; G0277 ==

== ENCOUNTER 2019-08-20 00:13 | Day surgery (SDC) | payer MEDICARE | END 2019-08-20 22:35 | disposition home or self-care (01) | LOC: HBO 00:13 | DX: E10.621 Type 1 diabetes mellitus with foot ulcer (principal); E10.51 Type 1 diabetes mellitus with diabetic peripheral angiopathy without gangrene; L97.519 Non-pressure chronic ulcer of other part of right foot with unspecified severity; L97.129 Non-pressure chronic ulcer of left thigh with unspecified severity; E10.22 Type 1 diabetes mellitus with diabetic chronic kidney disease; E10.42 Type 1 diabetes mellitus with diabetic polyneuropathy | CPT/HCPCS: 82947; G0277 ==

== ENCOUNTER 2019-08-21 00:16 | Day surgery (SDC) | payer MEDICARE | END 2019-08-21 22:40 | disposition home or self-care (01) | LOC: HBO 00:16 | DX: E10.621 Type 1 diabetes mellitus with foot ulcer (principal); L97.519 Non-pressure chronic ulcer of other part of right foot with unspecified severity; E10.622 Type 1 diabetes mellitus with other skin ulcer; L97.129 Non-pressure chronic ulcer of left thigh with unspecified severity; I73.9 Peripheral vascular disease, unspecified; E10.22 Type 1 diabetes mellitus with diabetic chronic kidney disease; E10.42 Type 1 diabetes mellitus with diabetic polyneuropathy; E10.51 Type 1 diabetes mellitus with diabetic peripheral angiopathy without gangrene | CPT/HCPCS: 82947; G0277 ==

== ENCOUNTER 2019-08-22 00:20 | Day surgery (SDC) | payer MEDICARE ==
[2019-08-24] MEDS ORDERED: Silvadene20 GM TOP (16:16)
== END 2019-08-22 23:03 | disposition home or self-care (01) ==
LOC: HBO 00:20
DX: E10.621 Type 1 diabetes mellitus with foot ulcer (principal); L97.519 Non-pressure chronic ulcer of other part of right foot with unspecified severity; L97.129 Non-pressure chronic ulcer of left thigh with unspecified severity; E10.51 Type 1 diabetes mellitus with diabetic peripheral angiopathy without gangrene; E10.22 Type 1 diabetes mellitus with diabetic chronic kidney disease; N18.9 Chronic kidney disease, unspecified; E10.42 Type 1 diabetes mellitus with diabetic polyneuropathy
CPT/HCPCS: 82947; G0277

== ENCOUNTER 2019-08-23 00:22 | Day surgery (SDC) | payer MEDICARE ==
[2019-08-24] MEDS ORDERED: Silvadene20 GM TOP (16:16)
== END 2019-08-23 22:53 | disposition home or self-care (01) ==
LOC: HBO 00:22
DX: E10.621 Type 1 diabetes mellitus with foot ulcer (principal); E10.51 Type 1 diabetes mellitus with diabetic peripheral angiopathy without gangrene; L97.519 Non-pressure chronic ulcer of other part of right foot with unspecified severity; L97.129 Non-pressure chronic ulcer of left thigh with unspecified severity; E10.22 Type 1 diabetes mellitus with diabetic chronic kidney disease; E10.42 Type 1 diabetes mellitus with diabetic polyneuropathy; N18.9 Chronic kidney disease, unspecified
CPT/HCPCS: 82947; G0277

== ENCOUNTER 2019-08-23 00:23 | Day surgery (SDC) | payer MEDICARE ==
[2019-08-24] MEDS ORDERED: Silvadene20 GM TOP (16:16)
== END 2019-08-23 22:53 | disposition home or self-care (01) ==
LOC: WOUND 00:23
DX: E10.621 Type 1 diabetes mellitus with foot ulcer (principal); E10.65 Type 1 diabetes mellitus with hyperglycemia; L97.519 Non-pressure chronic ulcer of other part of right foot with unspecified severity; L97.129 Non-pressure chronic ulcer of left thigh with unspecified severity; E10.51 Type 1 diabetes mellitus with diabetic peripheral angiopathy without gangrene; E10.42 Type 1 diabetes mellitus with diabetic polyneuropathy; E10.22 Type 1 diabetes mellitus with diabetic chronic kidney disease; D63.1 Anemia in chronic kidney disease

== ENCOUNTER 2019-08-26 00:28 | Day surgery (SDC) | payer MEDICARE ==
[~2019-08-26 00:28] MED LIST changes: +Silvadene20 GM TOP
== END 2019-08-26 22:42 | disposition home or self-care (01) ==
LOC: HBO 00:28 → WOUND 00:28 → HBO 15:33 → WOUND 22:42
DX: E10.621 Type 1 diabetes mellitus with foot ulcer (principal); L97.519 Non-pressure chronic ulcer of other part of right foot with unspecified severity; L97.129 Non-pressure chronic ulcer of left thigh with unspecified severity; E10.51 Type 1 diabetes mellitus with diabetic peripheral angiopathy without gangrene; E10.22 Type 1 diabetes mellitus with diabetic chronic kidney disease; E10.42 Type 1 diabetes mellitus with diabetic polyneuropathy

== ENCOUNTER 2019-08-27 00:24 | Day surgery (SDC) | payer MEDICARE | END 2019-08-27 22:44 | disposition home or self-care (01) | LOC: HBO 00:24 | DX: E10.621 Type 1 diabetes mellitus with foot ulcer (principal); L97.519 Non-pressure chronic ulcer of other part of right foot with unspecified severity; L97.129 Non-pressure chronic ulcer of left thigh with unspecified severity; E10.22 Type 1 diabetes mellitus with diabetic chronic kidney disease; E10.42 Type 1 diabetes mellitus with diabetic polyneuropathy; E10.51 Type 1 diabetes mellitus with diabetic peripheral angiopathy without gangrene; N18.9 Chronic kidney disease, unspecified; Z79.4 Long term (current) use of insulin; Z79.899 Other long term (current) drug therapy; Z79.01 Long term (current) use of anticoagulants | CPT/HCPCS: 82947; G0277 ==

== ENCOUNTER 2019-08-28 00:21 | Day surgery (SDC) | payer MEDICARE | END 2019-08-28 22:43 | disposition home or self-care (01) | LOC: HBO 00:21 | DX: E10.621 Type 1 diabetes mellitus with foot ulcer (principal); L97.519 Non-pressure chronic ulcer of other part of right foot with unspecified severity; L97.129 Non-pressure chronic ulcer of left thigh with unspecified severity; E10.51 Type 1 diabetes mellitus with diabetic peripheral angiopathy without gangrene; E10.42 Type 1 diabetes mellitus with diabetic polyneuropathy; E10.22 Type 1 diabetes mellitus with diabetic chronic kidney disease; N18.9 Chronic kidney disease, unspecified | CPT/HCPCS: 82947; G0277 ==

== ENCOUNTER 2019-08-29 00:15 | Day surgery (SDC) | payer MEDICARE | END 2019-08-29 23:49 | disposition home or self-care (01) | LOC: HBO 00:15 → WOUND 13:48 → HBO 13:50 | DX: E10.621 Type 1 diabetes mellitus with foot ulcer (principal); E10.51 Type 1 diabetes mellitus with diabetic peripheral angiopathy without gangrene; E10.65 Type 1 diabetes mellitus with hyperglycemia; E10.22 Type 1 diabetes mellitus with diabetic chronic kidney disease; N18.9 Chronic kidney disease, unspecified; L97.519 Non-pressure chronic ulcer of other part of right foot with unspecified severity; L97.129 Non-pressure chronic ulcer of left thigh with unspecified severity | CPT/HCPCS: 82947; G0277 ==

== ENCOUNTER 2019-08-30 00:14 | Day surgery (SDC) | payer MEDICARE | END 2019-08-30 23:09 | disposition home or self-care (01) | LOC: HBO 00:14 | DX: E10.621 Type 1 diabetes mellitus with foot ulcer (principal); L97.519 Non-pressure chronic ulcer of other part of right foot with unspecified severity; L97.129 Non-pressure chronic ulcer of left thigh with unspecified severity; I73.9 Peripheral vascular disease, unspecified; E10.51 Type 1 diabetes mellitus with diabetic peripheral angiopathy without gangrene; E10.65 Type 1 diabetes mellitus with hyperglycemia; E10.42 Type 1 diabetes mellitus with diabetic polyneuropathy; E10.22 Type 1 diabetes mellitus with diabetic chronic kidney disease; N18.9 Chronic kidney disease, unspecified; Z79.4 Long term (current) use of insulin; Z79.899 Other long term (current) drug therapy; Z79.02 Long term (current) use of antithrombotics/antiplatelets | CPT/HCPCS: 82947; G0277 ==

== ENCOUNTER 2019-09-02 00:50 | Day surgery (SDC) | payer MEDICARE, OTHER | END 2019-09-02 22:42 | disposition home or self-care (01) | LOC: HBO 00:50 | DX: E10.621 Type 1 diabetes mellitus with foot ulcer (principal); L97.519 Non-pressure chronic ulcer of other part of right foot with unspecified severity; L97.129 Non-pressure chronic ulcer of left thigh with unspecified severity; E10.65 Type 1 diabetes mellitus with hyperglycemia; E10.51 Type 1 diabetes mellitus with diabetic peripheral angiopathy without gangrene; E10.22 Type 1 diabetes mellitus with diabetic chronic kidney disease; N18.9 Chronic kidney disease, unspecified; E10.42 Type 1 diabetes mellitus with diabetic polyneuropathy | CPT/HCPCS: 82947; G0277 ==

== ENCOUNTER 2019-09-04 00:21 | Day surgery (SDC) | payer MEDICARE, OTHER | END 2019-09-04 22:42 | disposition home or self-care (01) | LOC: HBO 00:21 → WOUND 11:57 → HBO 11:58 | DX: E10.621 Type 1 diabetes mellitus with foot ulcer (principal); L97.519 Non-pressure chronic ulcer of other part of right foot with unspecified severity; L97.129 Non-pressure chronic ulcer of left thigh with unspecified severity; E10.65 Type 1 diabetes mellitus with hyperglycemia; E10.22 Type 1 diabetes mellitus with diabetic chronic kidney disease; E10.42 Type 1 diabetes mellitus with diabetic polyneuropathy; N18.9 Chronic kidney disease, unspecified | CPT/HCPCS: 82947; G0277 ==

== ENCOUNTER 2019-09-05 00:13 | Day surgery (SDC) | payer MEDICARE | END 2019-09-05 23:21 | disposition home or self-care (01) | LOC: HBO 00:13 | DX: E10.621 Type 1 diabetes mellitus with foot ulcer (principal); E10.65 Type 1 diabetes mellitus with hyperglycemia; E10.51 Type 1 diabetes mellitus with diabetic peripheral angiopathy without gangrene; E10.22 Type 1 diabetes mellitus with diabetic chronic kidney disease; E10.42 Type 1 diabetes mellitus with diabetic polyneuropathy; L97.519 Non-pressure chronic ulcer of other part of right foot with unspecified severity; L97.129 Non-pressure chronic ulcer of left thigh with unspecified severity; N18.9 Chronic kidney disease, unspecified | CPT/HCPCS: 82947; G0277 ==

== ENCOUNTER 2019-09-06 00:31 | Day surgery (SDC) | payer MEDICARE ==
[~2019-09-06 00:31] MED LIST changes: -Humalog100 UNIT/1; -Silvadene20 GM TOP
== END 2019-09-06 23:08 | disposition home or self-care (01) ==
LOC: WOUND 00:31
DX: E10.621 Type 1 diabetes mellitus with foot ulcer (principal); L97.519 Non-pressure chronic ulcer of other part of right foot with unspecified severity; L97.129 Non-pressure chronic ulcer of left thigh with unspecified severity; E10.65 Type 1 diabetes mellitus with hyperglycemia; E10.51 Type 1 diabetes mellitus with diabetic peripheral angiopathy without gangrene; E10.22 Type 1 diabetes mellitus with diabetic chronic kidney disease; N18.9 Chronic kidney disease, unspecified; E10.42 Type 1 diabetes mellitus with diabetic polyneuropathy; T24.221A Burn of second degree of right knee, initial encounter; T24.222A Burn of second degree of left knee, initial encounter; T25.221A Burn of second degree of right foot, initial encounter; T25.222A Burn of second degree of left foot, initial encounter; E10.40 Type 1 diabetes mellitus with diabetic neuropathy, unspecified

== ENCOUNTER 2019-09-11 11:33 | Emergency (ER) | payer MEDICARE ==
[~2019-09-11] VITALS: Ht 170.2 cm; Wt 49.9 kg
[2019-09-11] MEDS ORDERED: METO5A PO (13:34)
[2019-09-11] MEDS ORDERED: PANT40 PO (13:34)
[2019-09-11] MEDS ORDERED: Pravachol40 MG PO (13:35)
[2019-09-11] MEDS ORDERED: Silvadene20 GM TOP (13:35)
[2019-09-11 13:36] LABS: BASOPHILS ABSOLUTE AUTO 0.01 K/mm3 (0.00-0.23); BASOPHILS PERCENT AUTO 0 % (0-2); EOSINOPHILS ABSOLUTE AUTO 0.02 K/mm3 (0.00-0.68); EOSINOPHILS PERCENT AUTO 0 % (0-6); Hematocrit 29.8 % (33.0-51.0); Hemoglobin 9.6 g/dL (11.5-16.0); IMMATURE GRAN ABSOLUTE AUTO 0.02 K/mm3 (0.00-0.10); IMMATURE GRAN PERCENT AUTO 0 % (0-1); LYMPHOCYTES ABSOLUTE AUTO 1.16 K/mm3 (0.84-5.20); LYMPHOCYTES PERCENT AUTO 15 % (21-46); MONOCYTES ABSOLUTE AUTO 0.58 K/mm3 (0.16-1.47); MONOCYTES PERCENT AUTO 7 % (4-13); Mean Corpuscular HGB Conc 32.2 g/dL (31.5-36.5); Mean Corpuscular Volume 102 fL (80-100); Mean Platelet Volume 11.1 fL (9.1-12.4); NEUTROPHILS PERCENT AUTO 77 % (41-73); Platelet Count 256 K/mm3 (150-400); RDW Coefficient Variation 15.9 % (11.7-14.2); RDW Standard Deviation 56.6 fL (35.1-46.3); Red Blood Cell Count 2.91 M/mm3 (3.80-5.20); White Blood Cell Count 7.79 K/mm3 (4.00-11.30)
[2019-09-11] MEDS ORDERED: Humalog100 UNIT/1 (13:37)
[2019-09-11] MEDS ORDERED: HYDMOR4 PO (13:38)
[2019-09-11] MEDS ORDERED: Glucagon Emergen1 MG SC (13:39)
[2019-09-11] MEDS ORDERED: Bumetanide2 MG PO (13:41)
[2019-09-11] MEDS ORDERED: CALC.25 PO (13:42)
[2019-09-11] MEDS ORDERED: FURO80 PO (13:42)
[2019-09-11 14:00] LABS: Albumin/Globulin Ratio 0.7 (0.8-1.8); Bilirubin, Total 0.6 mg/dL (0.1-1.0); Bun/Creatinine Ratio 29.6 (12.0-20.0); Calcium, Blood 8.1 mg/dL (8.5-10.1); Creatinine, Blood 2.3 mg/dL (0.40-1.00); Globulin, Blood 4.6 g/dL (2.2-4.0); Potassium, Blood 3.9 mmol/L (3.5-5.5); Total Protein, Blood 7.6 g/dL (6.4-8.2)
[2019-09-12] MEDS ORDERED: XARELTO15 MG PO (18:43)
== END 2019-09-11 16:55 | disposition home or self-care (01) ==
LOC: ER 11:33
PROVIDERS: Physician Assistant
DX: T24.221D Burn of second degree of right knee, subsequent encounter (principal); E11.51 Type 2 diabetes mellitus with diabetic peripheral angiopathy without gangrene; I73.9 Peripheral vascular disease, unspecified; E11.40 Type 2 diabetes mellitus with diabetic neuropathy, unspecified; E11.22 Type 2 diabetes mellitus with diabetic chronic kidney disease; N18.4 Chronic kidney disease, stage 4 (severe); D63.1 Anemia in chronic kidney disease; E11.43 Type 2 diabetes mellitus with diabetic autonomic (poly)neuropathy; E11.319 Type 2 diabetes mellitus with unspecified diabetic retinopathy without macular edema; K31.84 Gastroparesis; Z88.5 Allergy status to narcotic agent; Z88.8 Allergy status to other drugs, medicaments and biological substances; Z79.899 Other long term (current) drug therapy; Z79.4 Long term (current) use of insulin; Z79.02 Long term (current) use of antithrombotics/antiplatelets
CPT/HCPCS: 36415; 80053; 83605; 85025; 96365; 96367; 99284-25; J2543; J3370

== ENCOUNTER 2019-09-12 12:32 | Observation (INO) | payer MEDICARE ==
[~2019-09-12] VITALS: Ht 170.2 cm; Wt 48.3 kg
[~2019-09-12 12:32] MED LIST changes: +Bumetanide2 MG PO; +CALC.25 PO; +FURO80 PO; +Glucagon Emergen1 MG SC; +HYDMOR4 PO; +Humalog100 UNIT/1; +Silvadene20 GM TOP
--- NOTE | 2019-09-12 15:57 | NUR ---
TAKEN TO SUSTAINABILITY CONSULTANT AT 1500.
--- NOTE | 2019-09-12 18:12 | NUR ---
RETURNS FROM SLIP COVER OPERATOR. RIGHT GROIN SITE DRESSING DRY AND INTACT. NO BLEEDING AT THIS TIME. LEFT LEG WARM, CAP REFILL <3 SECS, PEDAL PULSE PALPBALE. DRESSING ON TOP OF AND RIGHT INNER HEEL AREA DRY AND NO ACTIVE BLEEDING. WOUND VAC TO RIGHT FOOT, DRESSING CLEAN, DRY AND INTACT. A/A/OX4 AT THIS TIME, VSS, WILL CONTINUE TO MONITOR.
--- NOTE | 2019-09-12 18:42 | NUR ---
VSS, CONTINUING TO MONITOR RIGHT GROIN SITE. DRESSING DRY AND INTACT, NO ACTIVE BLEEDING, LEFT LEG WARM, CAP REFILL <3 PEDAL PULSE PALPABLE, DRESSINGS DRY AND INTACT.
[2019-09-12] MEDS ORDERED: XARELTO15 MG PO (18:43)
--- NOTE | 2019-09-12 21:56 | NUR ---
DISCHARGE PT A&O X4. VSS. R GROIN SITE WNL W/ NO BLEEDING & NO HEMATOMA. PT LAYING FLAT PER ORDERS, THEN TOLERATING SITTING UP & MOVING. PT W/ INSULIN PUMP TO LUQ. WOUND VAC TO R FOOT. NS GTT INFUSING PER ORDERS. IV DISCONNECTED AND REMOVED ONCE COMPLETE. DISCHAGE INSTRUCTIONS GONE OVER W/ PT. PT ASSISTED W/ PUTTING HOME CLOTHES ON & TAKEN OUT BY STRIP CUTTING MACHINE OPERATOR IN WHEEL CHAIR TO BE PICKED UP BY . PT DISCHARGED @ APPROX 2114.
== END 2019-09-12 21:19 | disposition home or self-care (01) ==
LOC: PCU 12:32
PROVIDERS: ADMIT Radiology Diagnostic Radiology
DX: E10.51 Type 1 diabetes mellitus with diabetic peripheral angiopathy without gangrene (principal); I70.202 Unspecified atherosclerosis of native arteries of extremities, left leg; T31.0 Burns involving less than 10% of body surface; E10.22 Type 1 diabetes mellitus with diabetic chronic kidney disease; N18.9 Chronic kidney disease, unspecified; Z79.899 Other long term (current) drug therapy; L98.499 Non-pressure chronic ulcer of skin of other sites with unspecified severity
CPT/HCPCS: 36140; 37224; 37229; 37232; 75716; 75774; 76937; 82947; 85347; 99152; 99153; C1724; C1725; C1760; C1769; C1887; C1894; C2623; G0378; J1644; J2250; J3010; J7030; Q9967

== ENCOUNTER 2019-09-13 16:00 | Day surgery (SDC) | payer MEDICARE ==
[~2019-09-13 16:00] MED LIST changes: +XARELTO15 MG PO
== END 2019-09-20 23:18 | disposition home or self-care (01) ==
LOC: WOUND 16:00
DX: E10.621 Type 1 diabetes mellitus with foot ulcer (principal); L97.519 Non-pressure chronic ulcer of other part of right foot with unspecified severity; L97.129 Non-pressure chronic ulcer of left thigh with unspecified severity; E10.65 Type 1 diabetes mellitus with hyperglycemia; E10.51 Type 1 diabetes mellitus with diabetic peripheral angiopathy without gangrene; E10.22 Type 1 diabetes mellitus with diabetic chronic kidney disease; E10.42 Type 1 diabetes mellitus with diabetic polyneuropathy; T24.221D Burn of second degree of right knee, subsequent encounter; T24.222D Burn of second degree of left knee, subsequent encounter; T25.221D Burn of second degree of right foot, subsequent encounter; T25.222D Burn of second degree of left foot, subsequent encounter

== ENCOUNTER 2019-09-16 00:29 | Day surgery (SDC) | payer MEDICARE, OTHER | END 2019-09-16 22:48 | disposition home or self-care (01) | LOC: HBO 00:29 | DX: E10.621 Type 1 diabetes mellitus with foot ulcer (principal); L97.519 Non-pressure chronic ulcer of other part of right foot with unspecified severity; L97.129 Non-pressure chronic ulcer of left thigh with unspecified severity; E10.65 Type 1 diabetes mellitus with hyperglycemia; E10.51 Type 1 diabetes mellitus with diabetic peripheral angiopathy without gangrene; E10.22 Type 1 diabetes mellitus with diabetic chronic kidney disease; N18.9 Chronic kidney disease, unspecified; E10.42 Type 1 diabetes mellitus with diabetic polyneuropathy; T24.221D Burn of second degree of right knee, subsequent encounter; T24.222D Burn of second degree of left knee, subsequent encounter; T25.221D Burn of second degree of right foot, subsequent encounter; T25.222D Burn of second degree of left foot, subsequent encounter | CPT/HCPCS: 82947; G0277 ==

== ENCOUNTER 2019-09-17 00:29 | Day surgery (SDC) | payer MEDICARE, OTHER | END 2019-09-17 22:48 | disposition home or self-care (01) | LOC: HBO 00:29 | DX: E10.621 Type 1 diabetes mellitus with foot ulcer (principal); L97.519 Non-pressure chronic ulcer of other part of right foot with unspecified severity; L97.129 Non-pressure chronic ulcer of left thigh with unspecified severity; E10.65 Type 1 diabetes mellitus with hyperglycemia; E10.51 Type 1 diabetes mellitus with diabetic peripheral angiopathy without gangrene; E10.22 Type 1 diabetes mellitus with diabetic chronic kidney disease; N18.9 Chronic kidney disease, unspecified; E10.42 Type 1 diabetes mellitus with diabetic polyneuropathy; T24.221D Burn of second degree of right knee, subsequent encounter; T24.222D Burn of second degree of left knee, subsequent encounter; T25.221D Burn of second degree of right foot, subsequent encounter; T25.222D Burn of second degree of left foot, subsequent encounter | CPT/HCPCS: 82947; G0277 ==

== ENCOUNTER 2019-09-20 00:37 | Day surgery (SDC) | payer MEDICARE, OTHER | END 2019-09-20 23:18 | disposition home or self-care (01) | LOC: WOUND 00:37 | DX: E10.621 Type 1 diabetes mellitus with foot ulcer (principal); L97.519 Non-pressure chronic ulcer of other part of right foot with unspecified severity; L97.129 Non-pressure chronic ulcer of left thigh with unspecified severity; E10.65 Type 1 diabetes mellitus with hyperglycemia; E10.51 Type 1 diabetes mellitus with diabetic peripheral angiopathy without gangrene; E10.22 Type 1 diabetes mellitus with diabetic chronic kidney disease; N18.9 Chronic kidney disease, unspecified; E10.42 Type 1 diabetes mellitus with diabetic polyneuropathy; T24.221D Burn of second degree of right knee, subsequent encounter; T24.222D Burn of second degree of left knee, subsequent encounter; T25.221D Burn of second degree of right foot, subsequent encounter; T25.222D Burn of second degree of left foot, subsequent encounter ==

== ENCOUNTER → 2019-09-20 | Outpatient (CLI) | payer MEDICARE ==
[2019-09-20 13:34] LABS: BASOPHILS ABSOLUTE AUTO 0.01 K/mm3 (0.00-0.23); BASOPHILS PERCENT AUTO 0 % (0-2); EOSINOPHILS ABSOLUTE AUTO 0.02 K/mm3 (0.00-0.68); EOSINOPHILS PERCENT AUTO 0 % (0-6); Hematocrit 28.5 % (33.0-51.0); Hemoglobin 9.3 g/dL (11.5-16.0); IMMATURE GRAN ABSOLUTE AUTO 0.02 K/mm3 (0.00-0.10); IMMATURE GRAN PERCENT AUTO 0 % (0-1); LYMPHOCYTES ABSOLUTE AUTO 1.45 K/mm3 (0.84-5.20); LYMPHOCYTES PERCENT AUTO 24 % (21-46); MONOCYTES ABSOLUTE AUTO 0.35 K/mm3 (0.16-1.47); MONOCYTES PERCENT AUTO 6 % (4-13); Mean Corpuscular HGB 32.9 pg (26.0-34.0); Mean Corpuscular HGB Conc 32.6 g/dL (31.5-36.5); Mean Corpuscular Volume 101 fL (80-100); Mean Platelet Volume 10.5 fL (9.1-12.4); NEUTROPHILS ABSOLUTE AUTO 4.11 K/mm3 (1.96-9.15); NEUTROPHILS PERCENT AUTO 69 % (41-73); Platelet Count 352 K/mm3 (150-400); RDW Coefficient Variation 15.7 % (11.7-14.2); RDW Standard Deviation 57.8 fL (35.1-46.3); Red Blood Cell Count 2.83 M/mm3 (3.80-5.20); White Blood Cell Count 5.96 K/mm3 (4.00-11.30)
[2019-09-20 13:44] LABS: Albumin, Blood 3.5 g/dL (3.4-5.0); Albumin/Globulin Ratio 0.7 (0.8-1.8); Bilirubin, Total 0.7 mg/dL (0.1-1.0); Bun/Creatinine Ratio 18.4 (12.0-20.0); Calcium, Blood 9.3 mg/dL (8.5-10.1); Creatinine, Blood 2.66 mg/dL (0.40-1.00); Globulin, Blood 4.8 g/dL (2.2-4.0); Potassium, Blood 4.7 mmol/L (3.5-5.5); Total Protein, Blood 8.3 g/dL (6.4-8.2)
== END | disposition home or self-care (01) ==
LOC: LAB SHORT 13:29 → LAB EV 13:29
PROVIDERS: Physician Assistant
DX: N18.4 Chronic kidney disease, stage 4 (severe) (principal)
CPT/HCPCS: 80053; 85025

== ENCOUNTER 2019-10-04 01:32 | Day surgery (SDC) | payer MEDICARE | END 2019-10-04 22:42 | disposition home or self-care (01) | LOC: WOUND 01:32 | DX: E10.621 Type 1 diabetes mellitus with foot ulcer (principal); E10.622 Type 1 diabetes mellitus with other skin ulcer; L97.511 Non-pressure chronic ulcer of other part of right foot limited to breakdown of skin; E10.65 Type 1 diabetes mellitus with hyperglycemia; E10.51 Type 1 diabetes mellitus with diabetic peripheral angiopathy without gangrene; E10.22 Type 1 diabetes mellitus with diabetic chronic kidney disease; E10.42 Type 1 diabetes mellitus with diabetic polyneuropathy; N18.9 Chronic kidney disease, unspecified; T24.221D Burn of second degree of right knee, subsequent encounter; T24.222D Burn of second degree of left knee, subsequent encounter; T25.221D Burn of second degree of right foot, subsequent encounter; T25.222D Burn of second degree of left foot, subsequent encounter; L97.121 Non-pressure chronic ulcer of left thigh limited to breakdown of skin ==

== ENCOUNTER 2019-10-05 01:25 | Day surgery (SDC) | payer MEDICARE ==
--- NOTE | 2019-10-05 14:48 | NUR ---
IV STARTS: THIS RN ATTEMPTED 5 IV STARTS, 2 IV INSERTS GAVE BLOOD, BUT COULD NOT ADVANCE, FRED PORTER FROM 2ND FLOOR TRIED 4 TIMES AND THEN ALYSSA BRADY CAME DOWN WITH ULTRASOUND MACHINE AND WAS SUCCESSFUL ON HER 2ND IV START. IV FLUIDS INFUSING AND WARM BLANKETS GIVEN, PT TOLERATED IV STARTS VERY WELL, VERY KIND.
== END 2019-10-05 15:48 | disposition home or self-care (01) ==
LOC: ATC 01:25
DX: E86.0 Dehydration (principal); E11.21 Type 2 diabetes mellitus with diabetic nephropathy; E11.319 Type 2 diabetes mellitus with unspecified diabetic retinopathy without macular edema; I12.9 Hypertensive chronic kidney disease with stage 1 through stage 4 chronic kidney disease, or unspecified chronic kidney disease; N18.4 Chronic kidney disease, stage 4 (severe); E11.22 Type 2 diabetes mellitus with diabetic chronic kidney disease; D63.1 Anemia in chronic kidney disease; Z79.4 Long term (current) use of insulin; Z79.01 Long term (current) use of anticoagulants; Z79.899 Other long term (current) drug therapy
CPT/HCPCS: 96360; J7030

== ENCOUNTER 2019-10-25 20:08 | Emergency (ER) | payer MEDICARE, OTHER ==
[~2019-10-25] VITALS: Ht 170.2 cm; Wt 49.9 kg
[~2019-10-25 20:08] MED LIST changes: +FLUC150A PO; +HUMALOG100 UNIT/1; -HYDMOR4 PO; -Humalog100 UNIT/1; +MEGESTROL400 MG/11 PO; +SERT50 PO; -XARELTO15 MG PO; +XARELTO2.5 M1 PO; +ZOLPIDEM TARTRA10 MG PO
[2019-10-25] MEDS ORDERED: Vibramycin100 MG PO (23:34)
[2019-11-07] MEDS ORDERED: ESCI10 PO (11:09)
[2019-11-07] MEDS ORDERED: Fludrocortison0.1 MG PO (12:16)
[2019-11-15] MEDS ORDERED: AMOCLA500 PO (17:19)
[2019-11-15] MEDS ORDERED: DRON2.5 PO (17:19)
[2019-11-15] MEDS ORDERED: Percocet 5-3251 EACH PO (17:20)
[2019-11-15] MEDS ORDERED: LOPE2C PO (17:20)
[2019-11-15] MEDS ORDERED: LEVE500 PO (17:20)
[2019-11-15] MEDS ORDERED: BACTRIM 400-801 EACH PO (17:20)
[2019-11-15] MEDS ORDERED: BASAGLAR K100 UNIT/1 SC (17:21)
[2019-11-15] MEDS ORDERED: HUMALOG KW100 UNIT/1 SC (17:22)
[2019-11-15] MEDS ORDERED: TAMS.4ER PO (17:26)
== END 2019-10-25 23:50 | disposition home or self-care (01) ==
LOC: ER 20:08
DX: E11.621 Type 2 diabetes mellitus with foot ulcer (principal); L97.519 Non-pressure chronic ulcer of other part of right foot with unspecified severity; L97.529 Non-pressure chronic ulcer of other part of left foot with unspecified severity
CPT/HCPCS: 99283

== ENCOUNTER 2019-11-05 15:17 | Emergency (ER) | payer MEDICARE, OTHER ==
[~2019-11-05] VITALS: Ht 170.2 cm; Wt 45.4 kg
[~2019-11-05 15:17] MED LIST changes: +Vibramycin100 MG PO
[2019-11-05] MEDS ORDERED: MIDO5 PO (16:04)
[2019-11-05 17:12] LABS: Base Excess Venous 6.4 mmol/L; Bicarbonate Venous 30.4 mmol/L (24.0-30.0); PCO2 Venous 29.8 mmHg (38-42); PO2 Venous 175 mmHg (38-42); pH Blood Venous 7.58 (7.34-7.37)
[2019-11-05 19:29] LABS: Albumin, Blood 2.5 g/dL (3.4-5.0); Albumin/Globulin Ratio 0.5 (0.8-1.8); Bilirubin, Total 0.5 mg/dL (0.1-1.0); Bun/Creatinine Ratio 21.8 (12.0-20.0); Creatinine, Blood 2.16 mg/dL (0.40-1.00); Globulin, Blood 4.6 g/dL (2.2-4.0); Potassium, Blood 3.4 mmol/L (3.5-5.5); Total Protein, Blood 7.1 g/dL (6.4-8.2); Troponin I 0.024 ng/mL (0.000-0.040)
[2019-11-07] MEDS ORDERED: ESCI10 PO (11:09)
[2019-11-07] MEDS ORDERED: Fludrocortison0.1 MG PO (12:16)
[2019-11-15] MEDS ORDERED: DRON2.5 PO (17:19)
[2019-11-15] MEDS ORDERED: AMOCLA500 PO (17:19)
[2019-11-15] MEDS ORDERED: BACTRIM 400-801 EACH PO (17:20)
[2019-11-15] MEDS ORDERED: LOPE2C PO (17:20)
[2019-11-15] MEDS ORDERED: LEVE500 PO (17:20)
[2019-11-15] MEDS ORDERED: Percocet 5-3251 EACH PO (17:20)
[2019-11-15] MEDS ORDERED: BASAGLAR K100 UNIT/1 SC (17:21)
[2019-11-15] MEDS ORDERED: HUMALOG KW100 UNIT/1 SC (17:22)
[2019-11-15] MEDS ORDERED: TAMS.4ER PO (17:26)
== END 2019-11-05 19:02 | disposition home or self-care (01) ==
LOC: ER 15:17
PROVIDERS: Emergency Medicine
DX: R55 Syncope and collapse (principal); E11.65 Type 2 diabetes mellitus with hyperglycemia; I95.9 Hypotension, unspecified; T24.322A Burn of third degree of left knee, initial encounter; T24.321A Burn of third degree of right knee, initial encounter; Z79.4 Long term (current) use of insulin; Z79.899 Other long term (current) drug therapy; Z86.73 Personal history of transient ischemic attack (TIA), and cerebral infarction without residual deficits; X58.XXXA Exposure to other specified factors, initial encounter
CPT/HCPCS: 36415; 71045; 80053; 82803; 84484; 93005; 93010; 99284-25; J2405; J7030

== ENCOUNTER 2019-11-30 01:28 | Inpatient (IN) | payer MEDICARE ==
[~2019-11-30] VITALS: Ht 147.3 cm; Wt 49.2 kg
[~2019-11-30 01:28] MED LIST changes: +BACTRIM 400-801 EACH PO; +BASAGLAR K100 UNIT/1 SC; +ESCI10 PO; +HUMALOG KW100 UNIT/1 SC; +LEVE500 PO; +Percocet 5-3251 EACH PO; +TAMS.4ER PO
[2019-11-30 03:02] LABS: Source, Urine Catheter
[2019-11-30 03:05] LABS: Appearance, Urine Hazy (Clear); BASOPHILS ABSOLUTE AUTO 0.02 K/mm3 (0.00-0.23); BASOPHILS PERCENT AUTO 0 % (0-2); Bilirubin, Urine Neg (Neg); Blood, Urine 2+ (Neg); Color, Urine Yellow (P-Yellow); EOSINOPHILS ABSOLUTE AUTO 0.03 K/mm3 (0.00-0.68); EOSINOPHILS PERCENT AUTO 0 % (0-6); Glucose Qualitative, Urine 2+ (Neg); Hematocrit 33.1 % (33.0-51.0); Hemoglobin 10.7 g/dL (11.5-16.0); IMMATURE GRAN ABSOLUTE AUTO 0.03 K/mm3 (0.00-0.10); IMMATURE GRAN PERCENT AUTO 0 % (0-1); Ketones, Urine 1+ (Neg); LYMPHOCYTES ABSOLUTE AUTO 0.58 K/mm3 (0.84-5.20); LYMPHOCYTES PERCENT AUTO 7 % (21-46); Leukocyte Esterase, Urine 3+ (Neg); MONOCYTES PERCENT AUTO 6 % (4-13); Mean Corpuscular HGB 33.9 pg (26.0-34.0); Mean Corpuscular HGB Conc 32.3 g/dL (31.5-36.5); Mean Corpuscular Volume 105 fL (80-100); Mean Platelet Volume 11.5 fL (9.1-12.4); NEUTROPHILS ABSOLUTE AUTO 7.82 K/mm3 (1.96-9.15); NEUTROPHILS PERCENT AUTO 87 % (41-73); Nitrite, Urine Neg (Neg); Platelet Count 235 K/mm3 (150-400); Protein, Urine 3+ (Neg); RDW Coefficient Variation 17.8 % (11.7-14.2); RDW Standard Deviation 67.4 fL (35.1-46.3); Red Blood Cell Count 3.16 M/mm3 (3.80-5.20); Specific Gravity, Urine 1.015 (1.003-1.022); Urobilinogen, Urine NORM (Normal); White Blood Cell Count 8.98 K/mm3 (4.00-11.30)
[2019-11-30] MEDS ORDERED: MEGE40T PO (03:08)
[2019-11-30] MEDS ORDERED: ESCI20 PO (03:09)
[2019-11-30] MEDS ORDERED: SERT50 PO (03:09)
[2019-11-30 03:10] LABS: White Blood Cells, Urine TNTC /hpf (0-5)
[2019-11-30 03:11] LABS: Bacteria Many /hpf; Red Blood Cells, Urine 0-2 /hpf (0-2); Squamous Epithelial Cells Not Seen /hpf (Few)
[2019-11-30] MEDS ORDERED: METO10 PO (03:12)
[2019-11-30 03:29] LABS: Albumin, Blood 2.2 g/dL (3.4-5.0); Albumin/Globulin Ratio 0.6 (0.8-1.8); Bilirubin, Total 0.4 mg/dL (0.1-1.0); Calcium, Blood 8.2 mg/dL (8.5-10.1); Creatinine, Blood 1.76 mg/dL (0.40-1.00); Globulin, Blood 3.8 g/dL (2.2-4.0); Magnesium, Blood 1.4 mg/dL (1.6-2.4); Potassium, Blood 2.6 mmol/L (3.5-5.5); Troponin I 0.198 ng/mL (0.000-0.040)
[2019-11-30 09:20] LABS: Source, Urine Catheter
[2019-11-30 09:37] LABS: Appearance, Urine Clear (Clear); Bilirubin, Urine Neg (Neg); Blood, Urine 2+ (Neg); Color, Urine Yellow (P-Yellow); Glucose Qualitative, Urine 2+ (Neg); Ketones, Urine Neg (Neg); Leukocyte Esterase, Urine 3+ (Neg); Nitrite, Urine Pos (Neg); Protein, Urine 2+ (Neg); Specific Gravity, Urine 1.015 (1.003-1.022); Urobilinogen, Urine NORM (Normal)
[2019-11-30 09:47] LABS: White Blood Cells, Urine 50-100 /hpf (0-5)
[2019-11-30 09:50] LABS: Bacteria Many /hpf; Squamous Epithelial Cells Rare /hpf (Few)
[2019-11-30 09:52] LABS: Yeast/Fungi Urine Few /hpf
[2019-11-30 11:56] LABS: BASOPHILS ABSOLUTE AUTO 0.02 K/mm3 (0.00-0.23); BASOPHILS PERCENT AUTO 0 % (0-2); EOSINOPHILS ABSOLUTE AUTO 0.03 K/mm3 (0.00-0.68); EOSINOPHILS PERCENT AUTO 1 % (0-6); Hematocrit 27.5 % (33.0-51.0); Hemoglobin 8.9 g/dL (11.5-16.0); IMMATURE GRAN ABSOLUTE AUTO 0.01 K/mm3 (0.00-0.10); IMMATURE GRAN PERCENT AUTO 0 % (0-1); LYMPHOCYTES ABSOLUTE AUTO 0.62 K/mm3 (0.84-5.20); LYMPHOCYTES PERCENT AUTO 10 % (21-46); MONOCYTES PERCENT AUTO 6 % (4-13); Mean Corpuscular HGB 33.8 pg (26.0-34.0); Mean Corpuscular HGB Conc 32.4 g/dL (31.5-36.5); Mean Corpuscular Volume 105 fL (80-100); Mean Platelet Volume 11.3 fL (9.1-12.4); NEUTROPHILS PERCENT AUTO 83 % (41-73); Platelet Count 224 K/mm3 (150-400); RDW Coefficient Variation 17.8 % (11.7-14.2); RDW Standard Deviation 67.5 fL (35.1-46.3); Red Blood Cell Count 2.63 M/mm3 (3.80-5.20); White Blood Cell Count 6.48 K/mm3 (4.00-11.30)
[2019-11-30 12:20] LABS: Albumin, Blood 1.8 g/dL (3.4-5.0); Albumin/Globulin Ratio 0.5 (0.8-1.8); Bilirubin, Total 0.3 mg/dL (0.1-1.0); Bun/Creatinine Ratio 21.3 (12.0-20.0); Calcium, Blood 7.5 mg/dL (8.5-10.1); Creatinine, Blood 1.55 mg/dL (0.40-1.00); Globulin, Blood 3.3 g/dL (2.2-4.0); Potassium, Blood 2.9 mmol/L (3.5-5.5); Total Protein, Blood 5.1 g/dL (6.4-8.2); Troponin I 0.17 ng/mL (0.000-0.040)
[2019-11-30 20:37] LABS: Troponin I 0.153 ng/mL (0.000-0.040)
[2019-12-01 04:06] LABS: BASOPHILS ABSOLUTE AUTO 0.01 K/mm3 (0.00-0.23); BASOPHILS PERCENT AUTO 0 % (0-2); EOSINOPHILS ABSOLUTE AUTO 0.02 K/mm3 (0.00-0.68); EOSINOPHILS PERCENT AUTO 0 % (0-6); Hematocrit 25.8 % (33.0-51.0); Hemoglobin 8.3 g/dL (11.5-16.0); IMMATURE GRAN ABSOLUTE AUTO 0.02 K/mm3 (0.00-0.10); IMMATURE GRAN PERCENT AUTO 0 % (0-1); LYMPHOCYTES ABSOLUTE AUTO 0.55 K/mm3 (0.84-5.20); LYMPHOCYTES PERCENT AUTO 10 % (21-46); MONOCYTES ABSOLUTE AUTO 0.32 K/mm3 (0.16-1.47); MONOCYTES PERCENT AUTO 6 % (4-13); Mean Corpuscular HGB 34.3 pg (26.0-34.0); Mean Corpuscular HGB Conc 32.2 g/dL (31.5-36.5); Mean Corpuscular Volume 107 fL (80-100); Mean Platelet Volume 11.3 fL (9.1-12.4); NEUTROPHILS PERCENT AUTO 84 % (41-73); Platelet Count 214 K/mm3 (150-400); RDW Coefficient Variation 18.3 % (11.7-14.2); RDW Standard Deviation 70.2 fL (35.1-46.3); Red Blood Cell Count 2.42 M/mm3 (3.80-5.20); White Blood Cell Count 5.82 K/mm3 (4.00-11.30)
[2019-12-01 04:29] LABS: Albumin, Blood 1.8 g/dL (3.4-5.0); Anion Gap 3 mmol/L (6-16); Blood Urea Nitrogen 29 mg/dL (8-24); CO2, Blood 29 mmol/L (21-32); Calcium, Blood 7.3 mg/dL (8.5-10.1); Chloride, Blood 109 mmol/L (98-108); Creatinine, Blood 1.45 mg/dL (0.40-1.00); Glomerular Filtration Rate 39 (60-); Glucose, Blood 132 mg/dL (70-99); Magnesium, Blood 1.9 mg/dL (1.6-2.4); Phosphorus, Blood 1.9 mg/dL (2.5-4.9); Potassium, Blood 4.8 mmol/L (3.5-5.5); Sodium, Blood 141 mmol/L (136-145); Vancomycin, Random 9.9 ug/mL
[2019-12-01] MEDS ORDERED: CIPR500 PO (14:08)
== END 2019-12-01 15:30 | disposition home or self-care (01) | DRG 638 ==
LOC: ER 01:28 → PCU 03:58
PROVIDERS: Emergency Medicine; Internal Medicine Gastroenterology; ADMIT Internal Medicine
DX: E10.641 Type 1 diabetes mellitus with hypoglycemia with coma (principal); N39.0 Urinary tract infection, site not specified; N18.4 Chronic kidney disease, stage 4 (severe); Z79.4 Long term (current) use of insulin; R56.9 Unspecified convulsions; E87.6 Hypokalemia; E83.42 Hypomagnesemia; Z89.612 Acquired absence of left leg above knee; F32.9 Major depressive disorder, single episode, unspecified; K21.9 Gastro-esophageal reflux disease without esophagitis; E11.51 Type 2 diabetes mellitus with diabetic peripheral angiopathy without gangrene; Z96.41 Presence of insulin pump (external) (internal); D64.9 Anemia, unspecified; E10.22 Type 1 diabetes mellitus with diabetic chronic kidney disease; I12.9 Hypertensive chronic kidney disease with stage 1 through stage 4 chronic kidney disease, or unspecified chronic kidney disease; D63.1 Anemia in chronic kidney disease
CPT/HCPCS: 36415; 51701; 70450; 71045; 80053; 80069; 80202; 81001; 82550; 82947; 83605; 83735; 83880; 84484; 85025; 87077; 87086; 87106; 87186; 93005; 93010; 93306; 96361-59; 96365-59; 96366-59; 96368; 99285-25; A9270; A9270-GY; J0696; J0744; J1953; J2405; J3370; J3475; J3480; J7030

== ENCOUNTER 2020-02-03 17:05 | Observation (INO) | payer MEDICARE ==
[~2020-02-03] VITALS: Ht 172.7 cm; Wt 52.6 kg
[~2020-02-03 17:05] MED LIST changes: -AMLO10 PO; -AURYXIA210 MG PO; -CLON.1 PO; -ESCI10 PO; -Keppra250 MG PO; +LEVE500 PO
[2020-02-03 17:20] LABS: Calcium, Ionized (POC) 1.07 mmol/L (1.10-1.46); Chloride (POC) 101 mmol/L (98-108); Glucose (ISTAT POC) 24 mg/dL (70-99); Potassium (POC) 2.9 mmol/L (3.5-5.5); Sodium (POC) 144 mmol/L (135-148); Total CO2 (POC) 30 mmol/L (21-32)
[2020-02-03 17:31] LABS: BASOPHILS ABSOLUTE AUTO 0.01 K/mm3 (0.00-0.23); BASOPHILS PERCENT AUTO 0 % (0-2); EOSINOPHILS ABSOLUTE AUTO 0.06 K/mm3 (0.00-0.68); EOSINOPHILS PERCENT AUTO 1 % (0-6); Hematocrit 42.5 % (33.0-51.0); Hemoglobin 13.2 g/dL (11.5-16.0); IMMATURE GRAN ABSOLUTE AUTO 0.03 K/mm3 (0.00-0.10); IMMATURE GRAN PERCENT AUTO 0 % (0-1); LYMPHOCYTES ABSOLUTE AUTO 1.53 K/mm3 (0.84-5.20); LYMPHOCYTES PERCENT AUTO 18 % (21-46); MONOCYTES ABSOLUTE AUTO 0.35 K/mm3 (0.16-1.47); MONOCYTES PERCENT AUTO 4 % (4-13); Mean Corpuscular HGB 32.2 pg (26.0-34.0); Mean Corpuscular HGB Conc 31.1 g/dL (31.5-36.5); Mean Corpuscular Volume 104 fL (80-100); Mean Platelet Volume 11.7 fL (9.1-12.4); NEUTROPHILS ABSOLUTE AUTO 6.33 K/mm3 (1.96-9.15); NEUTROPHILS PERCENT AUTO 76 % (41-73); Platelet Count 258 K/mm3 (150-400); RDW Coefficient Variation 14.5 % (11.7-14.2); RDW Standard Deviation 55.3 fL (35.1-46.3); White Blood Cell Count 8.31 K/mm3 (4.00-11.30)
[2020-02-03 17:55] LABS: Ethanol (Alcohol), Blood, Med <3 mg/dL; Troponin I 0.201 ng/mL (0.000-0.040)
[2020-02-03 17:58] LABS: Alanine Aminotransfer (ALT/SGP 49 U/L (12-78); Albumin, Blood 3.4 g/dL (3.4-5.0); Albumin/Globulin Ratio 0.8 (0.8-1.8); Alk Phos 146 U/L (50-136); Anion Gap 10 mmol/L (6-16); Aspartate Aminotrans (AST/SGOT 25 U/L (12-37); Bilirubin, Total 0.8 mg/dL (0.1-1.0); Blood Urea Nitrogen 44 mg/dL (8-24); Bun/Creatinine Ratio 22.8 (12.0-20.0); CO2, Blood 29 mmol/L (21-32); Calcium, Blood 8.9 mg/dL (8.5-10.1); Chloride, Blood 107 mmol/L (98-108); Creatinine, Blood 1.93 mg/dL (0.40-1.00); Globulin, Blood 4.1 g/dL (2.2-4.0); Glomerular Filtration Rate 28 (60-); Glucose, Blood 22 mg/dL (70-99); Potassium, Blood 3.1 mmol/L (3.5-5.5); Sodium, Blood 146 mmol/L (136-145); Total Protein, Blood 7.5 g/dL (6.4-8.2)
[2020-02-03] MEDS ORDERED: BASAGLAR K100 UNIT/1 SC (18:23)
[2020-02-03 19:04] LABS: Source, Urine Clean Catch
[2020-02-03 19:07] LABS: Appearance, Urine Clear (Clear); Bilirubin, Urine Neg (Neg); Blood, Urine 2+ (Neg); Color, Urine Yellow (P-Yellow); Glucose Qualitative, Urine 1+ (Neg); Ketones, Urine Neg (Neg); Leukocyte Esterase, Urine 2+ (Neg); Nitrite, Urine Neg (Neg); Protein, Urine 3+ (Neg); Urobilinogen, Urine NORM (Normal)
[2020-02-03 19:23] LABS: U Amphetamine Screen Not Detected; U Barbituate Screen Not Detected; U Benzodiazapine Screen Not Detected; U Cocaine Screen Not Detected; U Methamphetamine Screen Not Detected
[2020-02-03 19:24] LABS: U Buprenorphine Screen Not Detected; U Cannabinoids Screen Not Detected; U Methadone Screen Not Detected; U Opiates Screen Not Detected; U Oxycodone Screen Not Detected; U Phencyclidine Screen Not Detected; U Propoxyphene Screen Not Detected
[2020-02-03 19:36] LABS: Amorphous Light (0-Heavy); Bacteria Mod /hpf; Red Blood Cells, Urine 0-2 /hpf (0-2); Squamous Epithelial Cells Not Seen /hpf (Few); White Blood Cells, Urine 0-2 /hpf (0-5)
[2020-02-03] MEDS ORDERED: AMOCLA500 PO (21:46)
[2020-02-04 03:40] LABS: BASOPHILS ABSOLUTE AUTO 0.01 K/mm3 (0.00-0.23); BASOPHILS PERCENT AUTO 0 % (0-2); EOSINOPHILS ABSOLUTE AUTO 0.08 K/mm3 (0.00-0.68); EOSINOPHILS PERCENT AUTO 1 % (0-6); Hematocrit 35.1 % (33.0-51.0); Hemoglobin 10.9 g/dL (11.5-16.0); IMMATURE GRAN ABSOLUTE AUTO 0.02 K/mm3 (0.00-0.10); IMMATURE GRAN PERCENT AUTO 0 % (0-1); LYMPHOCYTES ABSOLUTE AUTO 1.26 K/mm3 (0.84-5.20); LYMPHOCYTES PERCENT AUTO 20 % (21-46); MONOCYTES ABSOLUTE AUTO 0.34 K/mm3 (0.16-1.47); MONOCYTES PERCENT AUTO 5 % (4-13); Mean Corpuscular HGB 32.1 pg (26.0-34.0); Mean Corpuscular HGB Conc 31.1 g/dL (31.5-36.5); Mean Corpuscular Volume 103 fL (80-100); Mean Platelet Volume 12.2 fL (9.1-12.4); NEUTROPHILS ABSOLUTE AUTO 4.54 K/mm3 (1.96-9.15); NEUTROPHILS PERCENT AUTO 73 % (41-73); Platelet Count 176 K/mm3 (150-400); RDW Coefficient Variation 14.2 % (11.7-14.2); RDW Standard Deviation 54.2 fL (35.1-46.3); White Blood Cell Count 6.25 K/mm3 (4.00-11.30)
[2020-02-04 03:55] LABS: Bun/Creatinine Ratio 22.3 (12.0-20.0); Calcium, Blood 7.7 mg/dL (8.5-10.1); Creatinine, Blood 1.75 mg/dL (0.40-1.00); Potassium, Blood 3.1 mmol/L (3.5-5.5)
--- NOTE | 2020-02-04 06:24 | NUR ---
SHIFT SUMMARY PT ARRIVED TO UNIT IN STABLE CONDTION AND DENIED ANY PAIN, VAUSEA OR VOMITING. PT STATED NOT EATING FOR THE PAST COUPLE DAYS DUE TO NOT FEELING WELL, BLOOD GLUCOSES HAVE BEEN IN THE HIGH 100'S, D5/2NS 20MEQ RUNNING T/O THE SHIFT. POTASSIUM IN ADMISSION WAS 3.1 WITH NO CHANGE AT MORNING LABS. BP WAS HYPERTENSIVE 160'S SYSTOLIC T/O SHIFT. PT WAS UP TO THE BEDSIDE COMMODE ONCE WITH SIGNIFICANT ASSISTANCE DUE TO WEAKNES AND NEW L AKA. SKIN SHOWED MANY SCABS, SCRAPES, BRUISING, AND A EARLY STAGE 2 PRESSURE ULCER ON L BUTTOCKS. PT STATED HAVING HEALING PROBLEMS DUE TO DM TYPE I. RIGHT FOOT HAD NO FEELING, WAS COOL TO TOUCH, EDEMA, AND POORLY HEALING OLD WOUNDS. PT STATED BEING COMFORTABLE AND SLEPT MOST OF THE NIGHT. WILL CONTINUE TO MONITOR UNTIL SHIFT CHANGE.
--- NOTE | 2020-02-04 07:16 | NUR ---
EVENT NOTE 0620 THIS RN HAD FINISHED TALKING WITH THE HOSPITALIST REGARDING PT'S AM LABS, SPECIFICALLY POTASSIUM. THIS RN TO ROOM WITH ORAL POTASSIUM. PT ASKING FOR HELP, BARELY AUDIBLE DUE TO HOW SOFT PT'S VOICE IS. PT'S IV NOTED TO HAVE PULLED OUT UNDERNEATH TAGEDERM. IV FLUID COVERING MAJORITY OF PT'S BODY AND SHEETS. PT STATES "I HAVE BEEN CALLING FOR HELP FOR HOURS AND NO ONE HAS BEEN HERE TO HELP ME." PT STATES "THIS IV HAS BEEN DRIPPING ALL OVER ME SINCE I CAME FROM ER AND NO ONE HAS SEEMED TO CARE. I WASN'T GIVEN A WAY TO GET AHOLD OF STAFF FOR HELP AND HAVE BEEN PRESSING THIS BUTTON (RED BUTTON ON BEDSIDE) TO GET HELP." THIS RN NOTED THAT THE PATIENT'S CALL LIGHT WAS LYING NEXT TO HER IN BED. PT REEDUCATED REGARDING USING THE CALL LIGHT. THIS RN WAS PRESENT FOR ADMISSON AND NOTED ONE IV WAS DC'D DUE TO INFILTRATION BUT THE IV MOST RECENTLY PULLED WAS INFUSING WNL AND HAD NOT CHANGED TILL THE TIME A NEW BAG OF D5 1/2NS 20MEQ WAS ADMINISTERED @ 0421. AT THAT TIME,DRESSING WAS CDI AND PT MADE NO COMPLAINTS REGARDING THIS IV PER KINSEY GUAJARDO RN. PT STATES THE SAMPLE DISPLAY PREPARER WAS CONDESCENDING TO HER DURING ADMISSION AND ASKED THAT HE NOT BE ALLOWED IN ROOM AND POINTED HIM OUT WHEN HE BROUGHT A BED CHANGE FOR THIS RN. IT WAS NOTED THAT THE SAMPLE DISPLAY PREPARER DID NOT ADMIT PT AND HAD LITTLE INTERACTION WITH PT. FOLLOWING FINDING PT, THIS RN CLEANED PT, REPLACED SHEETS/GOWN, REPLACED TELE STICKERS, TURNED HEAT UP IN ROOM, CLIPPED CALL LIGHT TO PT'S BLANKET AND REEDUCATED ON USE, PROVIDED BLANKETS FROM WARMER, DC'D IV AND DRESSED IT. PT UPSET BUT WHEN ASKED IF ANYTHING ELSE COULD BE DONE BEFORE REPORT TO ONCOMING RN WAS GIVEN, PT DENIED FURTHER NEED. PO POTASSIUM NOT GIVEN AT THIS TIME DUE TO NAUSEA REPORTED BY PT. ONCOMING RN YONNY RAYMOND NOTIFIED OF SITUATION. REPORT GIVEN.
--- NOTE | 2020-02-04 08:05 | NUR ---
Bedside report received from CHARLOTTE Rose. The pt is quiet, lying on her left side, HOB elevated, and states that she is very nauseated. Dry heaving noted. Report that IV had been inadvertently pulled by pt and IVF leaked all over the linens recently. ATtempted three times to start a peripheral IV, no success. Pt's veins are very small, and seem quite resistant to IV start. Sue Trivedi to attempt powerglide insertion as soon as possible to start IV fluids and give pt IV zofran for relief of nausea. Now pt is lying in darkened room, on her left side, no vomiting or dry heaving noted.
--- NOTE | 2020-02-04 09:40 | NUR ---
Attempting to start powerglide at this time.
--- NOTE | 2020-02-04 10:44 | NUR ---
Laury Roa notified me that the pt now has a powerglide.
--- NOTE | 2020-02-04 11:06 | NUR ---
medicated for nausea. Pt states that her stomach is hurting. She was able to take her oral medications after the zofran was given. Her is at the bedside.. Pt's blood pressure remains elevated; pt's Yoan stated that her blood pressure often is even over 200 systolic at home.
--- NOTE | 2020-02-04 17:01 | NUR ---
Telephone report given to Clare Severino. Call to DR. Quintanilla for consultation request. Call to Dr. De Jesus regarding pt's low potassium, and inability to take her oral potassium due to nausea today. Left message on DR. Montes's phone.
--- NOTE | 2020-02-04 18:37 | NUR ---
RECEIVED TO RM [id number] AT 1815 BY W/C. SHE VOIDED ON ARRIVAL. TO BED WITH ASSIST FROM THE BSC. SHE BEARED MAYBE 1/2 HER WEIGHT. AND DOG PRESENT. SHE DID NOT EAT ANY DINNER SO NO NOVOLOG INSULIN GIVEN. IV KCL REPLACEMENT STARTED. SHE IS INTERESTED IN A CUP OF TEA, AND HAS BEEN COVERED WITH A WARM BLANKET. CALL LIGHT IN REACH. BED ALARM ON.
[2020-02-05 05:26] LABS: BASOPHILS ABSOLUTE AUTO 0.01 K/mm3 (0.00-0.23); BASOPHILS PERCENT AUTO 0 % (0-2); EOSINOPHILS ABSOLUTE AUTO 0.07 K/mm3 (0.00-0.68); EOSINOPHILS PERCENT AUTO 1 % (0-6); Hematocrit 32.9 % (33.0-51.0); Hemoglobin 10.1 g/dL (11.5-16.0); IMMATURE GRAN ABSOLUTE AUTO 0.02 K/mm3 (0.00-0.10); IMMATURE GRAN PERCENT AUTO 0 % (0-1); LYMPHOCYTES ABSOLUTE AUTO 1.64 K/mm3 (0.84-5.20); LYMPHOCYTES PERCENT AUTO 29 % (21-46); MONOCYTES ABSOLUTE AUTO 0.38 K/mm3 (0.16-1.47); MONOCYTES PERCENT AUTO 7 % (4-13); Mean Corpuscular HGB 31.7 pg (26.0-34.0); Mean Corpuscular HGB Conc 30.7 g/dL (31.5-36.5); Mean Corpuscular Volume 103 fL (80-100); Mean Platelet Volume 11.5 fL (9.1-12.4); NEUTROPHILS ABSOLUTE AUTO 3.61 K/mm3 (1.96-9.15); NEUTROPHILS PERCENT AUTO 63 % (41-73); Platelet Count 209 K/mm3 (150-400); RDW Coefficient Variation 14.2 % (11.7-14.2); RDW Standard Deviation 54.2 fL (35.1-46.3); Red Blood Cell Count 3.19 M/mm3 (3.80-5.20); White Blood Cell Count 5.73 K/mm3 (4.00-11.30)
[2020-02-05 05:54] LABS: Albumin, Blood 2.5 g/dL (3.4-5.0); Bilirubin, Total 0.7 mg/dL (0.1-1.0); Bun/Creatinine Ratio 22.2 (12.0-20.0); Calcium, Blood 7.3 mg/dL (8.5-10.1); Creatinine, Blood 2.12 mg/dL (0.40-1.00); Magnesium, Blood 1.3 mg/dL (1.6-2.4); Phosphorus, Blood 3.2 mg/dL (2.5-4.9); Potassium, Blood 3.7 mmol/L (3.5-5.5)
[2020-02-05 06:06] LABS: Albumin/Globulin Ratio 0.8 (0.8-1.8)
[2020-02-05 06:07] LABS: Total Protein, Blood 5.5 g/dL (6.4-8.2)
--- NOTE | 2020-02-05 06:36 | NUR ---
SHIFT SUMMARY PT IS A 64 Y/O FEMALE, ADMITTED FOR HYPOGLYCEMIA WITH A HX OF TYPE I DIABETES. SHE IS A&O X 4, 1-2[facility] TO [facility] WITH A L AKA. BLOOD SUGARS REMAINED STABLE DURING THE NIGHT IN THE 200S. HEART RATE WAS ELEVATED AT HS IN THE 100S. BUT CAME DOWN TO THE 80S BY AM VITALS. ALL OTHER VITALS STABLE. NO C/O PAIN, NAUSEA OR SOB. NO ACUTE CHANGES IN PT CONDITION NOTED DURING THE NIGHT. WILL CONTINUE TO MONITOR AND TREAT PER EMAR UNTIL HAND OFF TO DAY SHIFT RN.
--- NOTE | 2020-02-05 13:48 | NUR ---
SHIFT SUMMARY PT RESTING QUIETLY AT START OF SHIFT. WOKE EASILY FOR CARE. MAG RIDER ORDERED BY DR ALVARES AT START OF SHIFT. MEDS TAKEN WHOLE WITH H2O. PT HOPING TO GO HOME TODAY. DR LINARES INFORMED. PT/OT EVAL AND TREAT TO BE DONE TO DETERMINE LEVEL OF CARE NEEDED. PER DR LINARES, FAMILY UNABLE TO CARE FOR PT AT THIS TIME UNTIL A LITTLE STRONGER. PER SHIFT REPORT, PT BRITTLE DIABETIC; ORDERS CHANGED PER DR LINARES, NOW AC/HS WITH LOW SS INSULIN. PER REPORT, PT ALSO HYPERTENSIVE; SEE CHART. MEDS ADJUSTED WITH GOOD RESULTS; SEE CHART. PT ASSISTED TO BSC TO VOID; 1P ASSIST TO STAND PIVOT R/T LAKA. PT'S HERE TO SEE PT, BRINGING CLOTHES. PT WANTING TO GET INTO WHEEL CHAIR AND OUT OF RM FOR A WHILE. PT'S TO GO GET HER W/C FROM HOME. PT ASSISTED INTO CHAIR AT BS, WAITING FOR TO RETURN. CALL LT IN REACH. BED BATH AND LINEN CHANGE DONE WELL. DENIED FURTHER NEEDS.
[2020-02-06 06:33] LABS: Albumin, Blood 2.7 g/dL (3.4-5.0); Anion Gap 5 mmol/L (6-16); Blood Urea Nitrogen 55 mg/dL (8-24); CO2, Blood 30 mmol/L (21-32); Calcium, Blood 7.9 mg/dL (8.5-10.1); Chloride, Blood 104 mmol/L (98-108); Creatinine, Blood 2.75 mg/dL (0.40-1.00); Glomerular Filtration Rate 17 (60-); Glucose, Blood 78 mg/dL (70-99); Phosphorus, Blood 3.5 mg/dL (2.5-4.9); Potassium, Blood 4.1 mmol/L (3.5-5.5); Sodium, Blood 139 mmol/L (136-145)
[2020-02-06] MEDS ORDERED: AMLO10 PO (13:36)
[2020-02-06] MEDS ORDERED: CLON.1 PO (13:37)
[2020-02-06] MEDS ORDERED: METO5A PO (13:39)
--- NOTE | 2020-02-06 14:15 | NUR ---
PT DISCHARGED AT 1400. PT AOX4 AND COOPERATIVE OF CARE. PT WAS UP TO WHEEL CHAIR AND MOVING AROUND IN ROOM. TO TRANSPORT HOME. ALL PAPER WORK REVIEWED AND EDUCATIONAL MATERIAL SENT WITH PT. NO DISTRESS NOTED. PT ESCORTED BY IN HER PERSONAL WHEEL CHAIR ALL BELONGINGS WITH PT.
[2020-02-06 14:32] LABS: Hematocrit 35.2 % (33.0-51.0); Hemoglobin 10.9 g/dL (11.5-16.0)
== END 2020-02-06 13:59 | disposition home health service (06) ==
LOC: ER 17:05 → PCU 17:06 → MEDS 02-04 18:04
PROVIDERS: Emergency Medicine; Internal Medicine; Internal Medicine Nephrology; Physician Assistant; ADMIT Hospitalist
DX: E10.649 Type 1 diabetes mellitus with hypoglycemia without coma (principal); E10.43 Type 1 diabetes mellitus with diabetic autonomic (poly)neuropathy; K31.84 Gastroparesis; E10.42 Type 1 diabetes mellitus with diabetic polyneuropathy; E10.51 Type 1 diabetes mellitus with diabetic peripheral angiopathy without gangrene; N39.0 Urinary tract infection, site not specified; B96.1 Klebsiella pneumoniae [K. pneumoniae] as the cause of diseases classified elsewhere; E10.319 Type 1 diabetes mellitus with unspecified diabetic retinopathy without macular edema; E87.0 Hyperosmolality and hypernatremia; E87.6 Hypokalemia; E83.42 Hypomagnesemia; I95.9 Hypotension, unspecified; E86.9 Volume depletion, unspecified; N17.9 Acute kidney failure, unspecified; I12.9 Hypertensive chronic kidney disease with stage 1 through stage 4 chronic kidney disease, or unspecified chronic kidney disease; E10.22 Type 1 diabetes mellitus with diabetic chronic kidney disease; N18.4 Chronic kidney disease, stage 4 (severe); D63.1 Anemia in chronic kidney disease; N25.81 Secondary hyperparathyroidism of renal origin; G89.29 Other chronic pain; M54.9 Dorsalgia, unspecified; F32.9 Major depressive disorder, single episode, unspecified; G47.00 Insomnia, unspecified; I16.0 Hypertensive urgency; G40.909 Epilepsy, unspecified, not intractable, without status epilepticus; F41.9 Anxiety disorder, unspecified; E78.5 Hyperlipidemia, unspecified; N81.6 Rectocele; M79.7 Fibromyalgia; M81.0 Age-related osteoporosis without current pathological fracture; R91.8 Other nonspecific abnormal finding of lung field; M48.061 Spinal stenosis, lumbar region without neurogenic claudication; E46 Unspecified protein-calorie malnutrition; Z68.1 Body mass index [BMI] 19.9 or less, adult; Z23 Encounter for immunization; Z20.828 Contact with and (suspected) exposure to other viral communicable diseases; Z51.5 Encounter for palliative care; Z79.01 Long term (current) use of anticoagulants; Z79.4 Long term (current) use of insulin; Z79.899 Other long term (current) drug therapy; Z86.73 Personal history of transient ischemic attack (TIA), and cerebral infarction without residual deficits; Z98.1 Arthrodesis status; Z90.49 Acquired absence of other specified parts of digestive tract; Z89.422 Acquired absence of other left toe(s); Z96.82 Presence of neurostimulator; G93.40 Encephalopathy, unspecified; Z89.612 Acquired absence of left leg above knee; M54.16 Radiculopathy, lumbar region
CPT/HCPCS: 36415; 51701; 71045; 80047; 80048; 80053; 80069; 81001; 82140; 82947; 83605; 83735; 83880; 84100; 84145; 84484; 85014; 85018; 85025; 87040; 87086; 93005; 93010; 96361; 96361-59; 96365-59; 96366; 96367; 96367-59; 96375; 96375-59; 96376; 97110; 97166; 99285-25; A9270-GY; C1751; G0378; G0480; J0456; J0696; J1815; J2310; J2405; J2765; J3475; J3480; J7030; J7050; U0003

== ENCOUNTER → 2020-02-03 | Outpatient (CLI) | payer MEDICARE ==
[~2020-02-03] MED LIST changes: +AMLO10 PO; +AURYXIA210 MG PO; +CIPR500 PO; +CLON.1 PO; +ESCI20 PO; +Keppra250 MG PO; -LEVE500 PO; +MEGE40T PO
== END | disposition home or self-care (01) ==
LOC: LAB EV 15:43 → LAB SHORT 15:43
DX: N39.0 Urinary tract infection, site not specified (principal)
CPT/HCPCS: 87086; 87106

== ENCOUNTER → 2020-02-10 | Outpatient (CLI) | payer MEDICARE ==
[~2020-02-10] MED LIST changes: +AMLO10 PO; +AURYXIA210 MG PO; +CLON.1 PO; +ESCI10 PO; +Keppra250 MG PO; -LEVE500 PO
[2020-02-10 14:44] LABS: BASOPHILS ABSOLUTE AUTO 0.02 K/mm3 (0.00-0.23); BASOPHILS PERCENT AUTO 0 % (0-2); EOSINOPHILS ABSOLUTE AUTO 0.09 K/mm3 (0.00-0.68); EOSINOPHILS PERCENT AUTO 2 % (0-6); Hematocrit 35.9 % (33.0-51.0); Hemoglobin 11.6 g/dL (11.5-16.0); IMMATURE GRAN ABSOLUTE AUTO 0.03 K/mm3 (0.00-0.10); IMMATURE GRAN PERCENT AUTO 1 % (0-1); LYMPHOCYTES ABSOLUTE AUTO 1.02 K/mm3 (0.84-5.20); LYMPHOCYTES PERCENT AUTO 21 % (21-46); MONOCYTES ABSOLUTE AUTO 0.32 K/mm3 (0.16-1.47); MONOCYTES PERCENT AUTO 7 % (4-13); Mean Corpuscular HGB 32.1 pg (26.0-34.0); Mean Corpuscular HGB Conc 32.3 g/dL (31.5-36.5); Mean Corpuscular Volume 99 fL (80-100); Mean Platelet Volume 11.8 fL (9.1-12.4); NEUTROPHILS ABSOLUTE AUTO 3.46 K/mm3 (1.96-9.15); NEUTROPHILS PERCENT AUTO 70 % (41-73); Platelet Count 248 K/mm3 (150-400); RDW Coefficient Variation 14.3 % (11.7-14.2); RDW Standard Deviation 52.8 fL (35.1-46.3); Red Blood Cell Count 3.61 M/mm3 (3.80-5.20); White Blood Cell Count 4.94 K/mm3 (4.00-11.30)
[2020-02-10 14:53] LABS: Albumin, Blood 2.7 g/dL (3.4-5.0); Albumin/Globulin Ratio 0.7 (0.8-1.8); Bilirubin, Total 0.4 mg/dL (0.1-1.0); Bun/Creatinine Ratio 20.3 (12.0-20.0); Calcium, Blood 8.7 mg/dL (8.5-10.1); Creatinine, Blood 3.1 mg/dL (0.40-1.00); Globulin, Blood 3.9 g/dL (2.2-4.0); Potassium, Blood 3.4 mmol/L (3.5-5.5); Total Protein, Blood 6.6 g/dL (6.4-8.2)
== END | disposition home or self-care (01) ==
LOC: LAB SHORT 14:39 → LAB EV 14:39
PROVIDERS: Physician Assistant Medical
DX: E10.65 Type 1 diabetes mellitus with hyperglycemia (principal)
CPT/HCPCS: 80053; 85025

== ENCOUNTER 2020-02-13 11:11 | Inpatient (IN) | payer MEDICARE ==
[~2020-02-13] VITALS: Ht 172.7 cm; Wt 57.5 kg
[~2020-02-13 11:11] MED LIST changes: -AURYXIA210 MG PO
[2020-02-13 11:53] LABS: BASOPHILS ABSOLUTE AUTO 0.02 K/mm3 (0.00-0.23); BASOPHILS PERCENT AUTO 1 % (0-2); EOSINOPHILS PERCENT AUTO 2 % (0-6); Hematocrit 31.6 % (33.0-51.0); Hemoglobin 9.6 g/dL (11.5-16.0); IMMATURE GRAN ABSOLUTE AUTO 0.01 K/mm3 (0.00-0.10); IMMATURE GRAN PERCENT AUTO 0 % (0-1); LYMPHOCYTES PERCENT AUTO 21 % (21-46); MONOCYTES ABSOLUTE AUTO 0.32 K/mm3 (0.16-1.47); MONOCYTES PERCENT AUTO 8 % (4-13); Mean Corpuscular HGB 31.5 pg (26.0-34.0); Mean Corpuscular HGB Conc 30.4 g/dL (31.5-36.5); Mean Platelet Volume 11.8 fL (9.1-12.4); NEUTROPHILS ABSOLUTE AUTO 2.86 K/mm3 (1.96-9.15); NEUTROPHILS PERCENT AUTO 68 % (41-73); NRBC ABSOLUTE 0.02 K/mm3 (0.00-0.02); NRBC Auto 0.5 /100 WBC (0.0-0.2); Platelet Count 194 K/mm3 (150-400); RDW Coefficient Variation 14.4 % (11.7-14.2); Red Blood Cell Count 3.05 M/mm3 (3.80-5.20); White Blood Cell Count 4.21 K/mm3 (4.00-11.30)
[2020-02-13 11:59] LABS: Mean Corpuscular Volume 104 fL (80-100)
[2020-02-13 12:08] LABS: Alanine Aminotransfer (ALT/SGP 31 U/L (12-78); Albumin, Blood 2.5 g/dL (3.4-5.0); Albumin/Globulin Ratio 0.8 (0.8-1.8); Alk Phos 115 U/L (50-136); Anion Gap 12 mmol/L (6-16); Aspartate Aminotrans (AST/SGOT 19 U/L (12-37); Bilirubin, Total 0.3 mg/dL (0.1-1.0); Blood Urea Nitrogen 73 mg/dL (8-24); Bun/Creatinine Ratio 20.6 (12.0-20.0); CO2, Blood 22 mmol/L (21-32); Calcium, Blood 7.5 mg/dL (8.5-10.1); Chloride, Blood 102 mmol/L (98-108); Creatinine, Blood 3.55 mg/dL (0.40-1.00); Globulin, Blood 3.3 g/dL (2.2-4.0); Glomerular Filtration Rate 14 (60-); Glucose, Blood 545 mg/dL (70-99); Potassium, Blood 3.9 mmol/L (3.5-5.5); Sodium, Blood 136 mmol/L (136-145); Total Protein, Blood 5.8 g/dL (6.4-8.2)
[2020-02-13 12:13] LABS: Troponin I 0.016 ng/mL (0.000-0.040)
[2020-02-13 12:19] LABS: Beta-hydroxybutyrate 18.4 mg/dL (0.2-2.8)
[2020-02-13 12:30] LABS: Source, Urine Catheter
[2020-02-13 12:34] LABS: Bilirubin, Urine Neg (Neg); Blood, Urine 3+ (Neg); Glucose Qualitative, Urine 3+ (Neg); Ketones, Urine 1+ (Neg); Leukocyte Esterase, Urine 3+ (Neg); Nitrite, Urine Neg (Neg); Protein, Urine 3+ (Neg); Urobilinogen, Urine NORM (Normal)
[2020-02-13 12:48] LABS: Appearance, Urine Cloudy (Clear); Color, Urine Yellow (P-Yellow)
[2020-02-13 12:51] LABS: White Blood Cells, Urine TNTC /hpf (0-5); Yeast/Fungi Urine Many /hpf
[2020-02-13 12:52] LABS: Bacteria Many /hpf; Squamous Epithelial Cells Few /hpf (Few)
[2020-02-13] MEDS ORDERED: BASAGLAR K100 UNIT/1 SC (13:57)
[2020-02-13] MEDS ORDERED: AURYXIA210 MG PO (13:58)
[2020-02-13] MEDS ORDERED: Bumetanide2 MG PO (13:58)
[2020-02-13 15:17] LABS: Glucose, Blood 517 mg/dL (70-99)
[2020-02-13 17:58] LABS: Source, Urine Catheter
[2020-02-13 18:10] LABS: Bilirubin, Urine Neg (Neg); Blood, Urine 3+ (Neg); Glucose Qualitative, Urine 3+ (Neg); Ketones, Urine 1+ (Neg); Leukocyte Esterase, Urine 3+ (Neg); Nitrite, Urine Neg (Neg); Protein, Urine 3+ (Neg); Urobilinogen, Urine NORM (Normal)
[2020-02-13 18:48] LABS: Appearance, Urine Cloudy (Clear); Color, Urine Yellow (P-Yellow)
[2020-02-13 18:51] LABS: Amorphous Heavy (0-Heavy); Bacteria Mod /hpf; Red Blood Cells, Urine 0-2 /hpf (0-2); Squamous Epithelial Cells Rare /hpf (Few)
--- NOTE | 2020-02-13 19:16 | NUR ---
ARRIVAL TO ICU AND SHIFT SUMMARY 1520 - PT ARRIVED TO ICU FROM ED AT THIS TIME. SHE IS A/O X3, BUT IS SLOW TO ANSWER QUESTIONS. VSS. NSR, HR 70S. BP WNL ENTIRE SHIFT. AFEBRILE. ARRIVES WITH INSULIN GTT INFUSING; TITRATED ABLE. NS MIV STARTED AT 200 ML/HR PER ORDER. PT ARRIVED WITH REDDENED AND SWOLLEN FACE AROUND EYES, NOSE AND MOUTH; SEE PHOTOS. PT DENIES ANY RECENT MED CHANGES OR DETERGENT CHANGES. SISTER AT BEDSIDE AND ASSISTED WITH ADMISSION PROCESS. PT SITTING UPRIGHT IN BED WATCHING TV, SIPPING ON TEA, AND HAVING SOME PUDDING. OK TO EAT PER MD ALVARES. BEDSIDE, HANDOFF REPORT TO KYLE PORTER.
--- NOTE | 2020-02-13 20:08 | NUR ---
ASSUMED CARE OF PT AT 1915. REPORT RECEIVED AT BEDSIDE. PT PRESENTS IN BED. ALERT AND ORIENTED. PLEASANT AND COOPERATIVE WITH CARE AND ASSESSMENT. DENIES COMPLAINTS AT THIS TIME. INSULIN DRIP AT 3 UNITS PER HOUR. WILL MONITOR AND EVALUATE ABILITY TO TITRATE INSULIN LOWER. WILL REVIEW CHART AND PLAN OF CARE FOR THIS PT.
--- NOTE | 2020-02-14 02:36 | NUR ---
CALL MADE TO DR ALVARES PER HIS REQUEST EARLIER IN EVENING. ORDER RECEIVED TO DECREASE IV FLUIDS. THIS HAS BEEN DONE. PT HAS BEEN TITRATED DOWN TO STANDBY ON HER INSULIN DRIP. HAVE SPOKEN EARLIER WITH DR FLOWERS WHEREAS ORDERS RECEIVED. PT WILL RECEIVE SCHEDULED LONG ACTING INSULIN ORDERED IN AM AND RECEIVE BREAKFAST. UPDATED PT WITH THE CHANGES. SHE STATES THAT SHE IS VERY PLEASED WITH HOW THIS HAS GONE. ABLE TO MOVE HERSELF ABOUT IN BED AND HAS BEEN VERY COMPLIANT WITH FREQUENT GLUCOSE CHECKS. WILL CONTINUE TO MONITOR PT.
[2020-02-14 03:49] LABS: BASOPHILS ABSOLUTE AUTO 0.02 K/mm3 (0.00-0.23); BASOPHILS PERCENT AUTO 0 % (0-2); EOSINOPHILS ABSOLUTE AUTO 0.13 K/mm3 (0.00-0.68); EOSINOPHILS PERCENT AUTO 2 % (0-6); Hematocrit 31.1 % (33.0-51.0); Hemoglobin 9.7 g/dL (11.5-16.0); IMMATURE GRAN ABSOLUTE AUTO 0.01 K/mm3 (0.00-0.10); IMMATURE GRAN PERCENT AUTO 0 % (0-1); LYMPHOCYTES ABSOLUTE AUTO 1.06 K/mm3 (0.84-5.20); LYMPHOCYTES PERCENT AUTO 19 % (21-46); MONOCYTES ABSOLUTE AUTO 0.31 K/mm3 (0.16-1.47); MONOCYTES PERCENT AUTO 5 % (4-13); Mean Corpuscular HGB 31.4 pg (26.0-34.0); Mean Corpuscular HGB Conc 31.2 g/dL (31.5-36.5); Mean Corpuscular Volume 101 fL (80-100); Mean Platelet Volume 11.4 fL (9.1-12.4); NEUTROPHILS ABSOLUTE AUTO 4.17 K/mm3 (1.96-9.15); NEUTROPHILS PERCENT AUTO 73 % (41-73); Platelet Count 192 K/mm3 (150-400); RDW Coefficient Variation 13.9 % (11.7-14.2); RDW Standard Deviation 50.4 fL (35.1-46.3); Red Blood Cell Count 3.09 M/mm3 (3.80-5.20)
[2020-02-14 04:06] LABS: Albumin, Blood 2.3 g/dL (3.4-5.0); Albumin/Globulin Ratio 0.7 (0.8-1.8); Bilirubin, Total 0.3 mg/dL (0.1-1.0); Bun/Creatinine Ratio 19.6 (12.0-20.0); Calcium, Blood 6.9 mg/dL (8.5-10.1); Creatinine, Blood 3.62 mg/dL (0.40-1.00); Globulin, Blood 3.2 g/dL (2.2-4.0); Magnesium, Blood 1.9 mg/dL (1.6-2.4); Phosphorus, Blood 4.7 mg/dL (2.5-4.9); Potassium, Blood 3.5 mmol/L (3.5-5.5); Total Protein, Blood 5.5 g/dL (6.4-8.2)
--- NOTE | 2020-02-14 06:37 | NUR ---
PT HAS POOR URINARY OUTPUT OF 50 ML THIS SHIFT. WITH HX KIDNEY DISEASE. HAS HAD ONE BRIEF EPISODE OF NAUSEA JUST AFTER HAVING HER BLOOD DRAWN. HAS BEEN ABLE TO MOVE HERSELF ABOUT IN BED. HAS BEEN OFF INSULIN DRIP AND WILL BE BACK TO HER HOME REGIMEN INSULINS THIS AM. WILL CONTINUE TO MONITOR PT, AND WILL REPORT OFF TO ONCOMING RN.
--- NOTE | 2020-02-14 07:59 | NUR ---
AM NOTE... ASSUMED CARE OF PT APROX 0700, PT IS A&Ox4 AND WAS ADMITTED FOR WEAKNESS AND HYPERGLYCEMIA. CURRENTLY PT IS OFF INSULIN GTT AND CBG WAS 128. PT'S VS STABLE AT THIS TIME, AFEBRILE AT 97.3. JIMÉNEZ PATENT AND DRAINING SMALL AMOUNT OF DARK YELLOW URINE TO GRAVITY. L/S CLEAR T/O DIM IN THE BASES ON 2L NC FOR APNIC EPISODS DURING THE NIGHT PER NOC SHIFT RN. PT HAS NONPITTING DEPENDENT EDEMA TO HER RIGHT EYE, 2+ TO HER BUE, NON PITTING TO BILAT HANDS AND 2+ TO RLE. PT DENIES CHEST PAIN/PRESSURE N/V OR SOB. PT HAS NS RUNNING AT 100MLS PER HOUR PER ORDERS. PER NOC SHIFT RN REPORT PT HAD APROX 50MLS URINE OUT AND APROX 2000MLS FLUIDS IN, THIS WAS REPORTED TO , THIS RN WILL CALL AT 12 PM WITH CURRENT OUTPUT AT THAT TIME AND PROCEED FROM THERE. CALL LIGHT IN REACH WILL CONTINUE TO MONITOR.
--- NOTE | 2020-02-14 17:11 | NUR ---
SHIFT SUMMARY... NO ACUTE NEGATIVE CHANGES NOTED THIS SHIFT. PT'S TOTAL URINE OUTPUT THIS SHIFT WAS 110MLS, DR. ALVARES WAS NOTIFIED, NEW ORDERS OBTAINED FOR ALBUMIN AND BUMEX, THESE WERE GIVEN. PT'S AT THE BEDSIDE UPDATED ON PT'S PLAN OF CARE AND CURRENT CONDITION. PT'S VS STABLE T/O SHIFT. PT WAS UP IN THE RECLINER CHAIR WITH 2P MOD STAND PIVOT TRANSFER FOR MOST OF THE DAY, PT HAS BEEN SHIFTING HERSELF AROUND IN THE CHAIR PRN SEVERAL TIMES PER HOUR FOR COMFORT. PT HAS NS RUNNING AT 50MLS PER HOUR PER ORDERS. PT'S EDEMA HAS INCREASED FROM TRACE TO 2+ TO NOW 2+-3+ GENERALIZED. PT CONTINUES TO BE ON RA WITH O2 SATS>92% L/S CLEAR T/O. REPORT CALLED TO MEDICAL FLOOR RN, ALL OF PT'S BELONGINGS PACKED AND SENT WITH THE PT TO HER NEW ROOM.
--- NOTE | 2020-02-14 17:41 | NUR ---
SHIFT SUMMARY PATIENT ARRIVED TO THE FLOOR LATE THIS AFTERNOON FROM ICU. PATIENT ALERT AND ORIENTED UPON ARRIVAL. PATIENT TRANSFERED TO BED VIA SLIDE. PATIENT ORIENTED TO THE ROOM AND BROUGHT A WARM BLANKET. PATIENT PRIVIDED WITH HER DINNER. PATIENT DENIES FURTHER NEEDS AT THIS TIME.
--- NOTE | 2020-02-15 04:26 | NUR ---
SHIFT SUMMARY PATIENT HAD NO ACUTE CHANGES OBSERVED. AXO X 4 AND TWO PERSON STAND PIVOT TO BSC WITH LEFT AKA. JIMÉNEZ PATENT AND DRAINING. PIVS REMAIN INTACT. NS INFUSING AT 50 mL/HR. CBG 286. DENIES PAIN, SOB, AND N/V. VSS/AFEBRILE. ABLE TO SLEEP MOST OF THE SHIFT. CONTACT PRECAUTIONS. CALL LIGHT IN REACH. BED IN LOWEST POSITION. WILL CONTINUE TO MONITOR UNTIL DAY SHIFT NURSE ASSUMES CARE.
[2020-02-15 05:27] LABS: Hematocrit 31.7 % (33.0-51.0); Hemoglobin 10.1 g/dL (11.5-16.0)
[2020-02-15 05:56] LABS: Albumin, Blood 2.1 g/dL (3.4-5.0); Anion Gap 10 mmol/L (6-16); Blood Urea Nitrogen 66 mg/dL (8-24); Bun/Creatinine Ratio 18.9 (12.0-20.0); CO2, Blood 17 mmol/L (21-32); Calcium, Blood 6.3 mg/dL (8.5-10.1); Chloride, Blood 105 mmol/L (98-108); Creatinine, Blood 3.49 mg/dL (0.40-1.00); Glomerular Filtration Rate 14 (60-); Glucose, Blood 257 mg/dL (70-99); Magnesium, Blood 1.7 mg/dL (1.6-2.4); Phosphorus, Blood 5.1 mg/dL (2.5-4.9); Potassium, Blood 4.2 mmol/L (3.5-5.5); Sodium, Blood 132 mmol/L (136-145)
--- NOTE | 2020-02-15 13:49 | NUR ---
Pt resting in bed upon arrival. Pt denies pain, dyspnea, and nausea. Pt reports mild but manageable anxiety due to being in the hospital. Engaged in therapeutic listening as Pt reports plan for spouse to bring her wheel chair so she can move about the hospital to prevent deconditioning. Listened as Pt expresses hopefullness of kidney improvement. Pt reports if dialysis is needed she would be agreeable. Discussed advanced directives with Pt reporting having one completed at home. Pt will ask spouse to bring copy for medical records. Pt reports no concerns at this time. Pt requests hot black tea with audrey. Spoke with Bedside RN Marisela and relayed Pt's request. Marisela will review Pt's chart for restrictions before granting request. Palliative Care will remain available.
--- NOTE | 2020-02-15 18:43 | NUR ---
SHIFT SUMMARY: NO ACUTE CHANGES TO REPORT THIS SHIFT. PT A&O; CALM AND COOPERATIVE WITH CARE. NO C/O PAIN THIS SHFIT. JIMÉNEZ IN PLACE-CHRONIC INDWELLING; PATENT AND DRAINING. IV FLUIDS D/C'd THIS SHIFT; ISOLATION D/C'd THIS SHIFT. IV ABX CONTINUING. BLOOD SUGARS STABLE IN LOW-MID 200s; INSULIN CHANGED THIS SHIFT. WCTM.
--- NOTE | 2020-02-16 03:59 | NUR ---
FACILITY TECHNICIAN SUMMARY. PT HAD AN UNEVENTFUL NIGHT SHE FELL ASLEEP AFTER RECIEVING HER 2100 MEDICATIONS AND HAS SLEPT COMFORTABLY FOR THE MAJORITY OF THE NIGHT. WCTM.
[2020-02-16 05:11] LABS: BASOPHILS PERCENT AUTO 0 % (0-2); EOSINOPHILS PERCENT AUTO 0 % (0-6); Hematocrit 36.1 % (33.0-51.0); Hemoglobin 11.6 g/dL (11.5-16.0); IMMATURE GRAN ABSOLUTE AUTO 0.02 K/mm3 (0.00-0.10); IMMATURE GRAN PERCENT AUTO 1 % (0-1); LYMPHOCYTES ABSOLUTE AUTO 0.49 K/mm3 (0.84-5.20); LYMPHOCYTES PERCENT AUTO 12 % (21-46); MONOCYTES ABSOLUTE AUTO 0.03 K/mm3 (0.16-1.47); MONOCYTES PERCENT AUTO 1 % (4-13); Mean Corpuscular HGB 31.3 pg (26.0-34.0); Mean Corpuscular HGB Conc 32.1 g/dL (31.5-36.5); Mean Corpuscular Volume 97 fL (80-100); NEUTROPHILS ABSOLUTE AUTO 3.42 K/mm3 (1.96-9.15); NEUTROPHILS PERCENT AUTO 86 % (41-73); Platelet Count 239 K/mm3 (150-400); RDW Coefficient Variation 14.5 % (11.7-14.2); RDW Standard Deviation 50.7 fL (35.1-46.3); Red Blood Cell Count 3.71 M/mm3 (3.80-5.20); White Blood Cell Count 3.96 K/mm3 (4.00-11.30)
[2020-02-16 05:37] LABS: Albumin, Blood 2.5 g/dL (3.4-5.0); Albumin/Globulin Ratio 0.7 (0.8-1.8); Bilirubin, Total 0.3 mg/dL (0.1-1.0); Bun/Creatinine Ratio 18.2 (12.0-20.0); Calcium, Blood 6.8 mg/dL (8.5-10.1); Creatinine, Blood 3.8 mg/dL (0.40-1.00); Globulin, Blood 3.6 g/dL (2.2-4.0); Potassium, Blood 4.5 mmol/L (3.5-5.5); Total Protein, Blood 6.1 g/dL (6.4-8.2)
--- NOTE | 2020-02-16 18:41 | NUR ---
SPOKE WITH THE PATIENT TODAY. SHE STATED THAT SHE IS UNCOMFORTABLE AND SCARED ABOUT HER SITUATION. SHE IS FEELING THAT SHE IS IN EMOTIONAL TURMOIL AT THIS TIME AND UNSURE WHAT SHE WOULD LIKE HER NEXT STEPS TO BE. SHE IS HAVING A HARD TIME PROCESSING HER CURRENT SITUATION IT HAS CHANGED A LOT IN THE PAST TWO YEARS. SHE STATES THAT WHEN SHE GOT HER DELUCA SHE DIDN'T KNOW WHAT WOULD COME OF IT. NOW SHE IS STUCK IN A SITUATION WHERE IN A SHORT AMOUNT OF TIME SHE HAS GOTTEN DELUCA ON HER BODY, DEALT WITH HER LIFETIME TYPE ONE DIABETES, LOST HER TOES, THEN HER LEG, AND FELT LIKE SHE WAS CONSTANTLY IN AND OUT OF THE HOSPITAL. NOW SHE IS LEARNING OF A NEW DIAGNOSIS OF KIDNEY FAILURE AND DOESN'T KNOW HOW SHE FEELS ABOUT HER TREATMENT OPTIONS. SHE IS STUCK DEALING WITH HER EMOTIONS AND FEELS ALONE IN HER DECISIONS. SHE WANTS TO CONTINUE FULL TREATMENT AND SEE HOW LONG SHE CAN LIVE A GOOD QUALITY OF LIFE. SHE FEELS THAT SHE DOES NOT UNDERSTAND WHAT THE TREATMENT OPTIONS PERTAIN TO AND SHE HAS NO EDUCATION ON TREATMENT PLANS. SHE IS UNDER THE IMPRESSION THAT IF SHE STARTED DIALYSIS THAT SHE WOULD NO LONGER BE ABLE TO MOVE AROUND, CONTINUE THERAPY, AND SHE WOULD BE CONFINED TO A BED AND NO LONGER COMFORTABLE IN HER LIFE.
--- NOTE | 2020-02-16 19:22 | NUR ---
SHIFT SUMMARY: NO ACUTE CHANGES TO REPORT THIS SHIFT. PT A&O; CALM AND COOPERATIVE WITH CARE. NO C/O PAIN THIS SHIFT. JIMÉNEZ IN PLACE; PATENT AND DRAINING. L AKA; UP c 2-ASSIST TO BSC/WHEELCHAIR. DIURETICS & ABX CONTINUING. REPORT GIVEN TO ONCOMING RN.
[2020-02-17 04:54] LABS: Hematocrit 37.8 % (33.0-51.0); Hemoglobin 11.9 g/dL (11.5-16.0)
--- NOTE | 2020-02-17 04:57 | NUR ---
SHIFT SUMMARY PATIENT HAD NO ACUTE CHANGES OBSERVED. AXOX 3 AND TWO PERSON STAND PIVOT TO BSC. LEFT AKA. IN W/C FIRST PART OF SHIFT AND GOING DOWN HALLWAY TO TAKE A BREAK FROM BEING IN BED. PIV REMAINS INTACT. IV BUMEX GIVEN PER EMAR. JIMÉNEZ PATENT AND DRAINING TO GRAVITY. CBG 231. FLUID RESTRICTIONS 1,000 mL. REPORTED GENERAL PAIN FROM WORKING WITH PT DURING THE DAY. TYLENOL GIVEN PER EMAR. VSS/AFEBRILE. DENIES SOB AND N/V. PATIENT BACK IN BED WATCHING TV AND THAN ABLE TO SLEEP MOST OF SHIFT. CALL LIGHT IN REACH. BED IN LOWEST POSITION. WILL CONTINUE TO MONITOR UNTIL DAY SHIFT NURSE ASSUMES CARE.
[2020-02-17 05:16] LABS: Albumin, Blood 2.7 g/dL (3.4-5.0); Anion Gap 11 mmol/L (6-16); Blood Urea Nitrogen 79 mg/dL (8-24); Bun/Creatinine Ratio 19.8 (12.0-20.0); CO2, Blood 21 mmol/L (21-32); Calcium, Blood 6.8 mg/dL (8.5-10.1); Chloride, Blood 100 mmol/L (98-108); Creatinine, Blood 3.99 mg/dL (0.40-1.00); Glomerular Filtration Rate 12 (60-); Glucose, Blood 178 mg/dL (70-99); Potassium, Blood 4.6 mmol/L (3.5-5.5); Sodium, Blood 132 mmol/L (136-145)
--- NOTE | 2020-02-17 11:18 | NUR ---
02/17/20 AT 0800 PATIENT GAVE STUDENT PERMISSION TO ACCESS CHART AND PROVIDE CARE TODAY.
--- NOTE | 2020-02-17 14:43 | NUR ---
SHIFT SUMMARY CONSULT CALLED TO ROSANNA THIS MORNING. CALLED AT 1030, PT TEARFUL REGARDING L AKA, AND REQUESTED TO BE SEEN. PT REQUESTED MEETING WITH GIORGIO AND PRESENT, REGARDING HD. SPEAKER PHONE CONVERSATION WITH GIORGIO AT 1120, PT AND AGREEABLE TO PROCEED WITH HD. PT STOOD WITH X1A TO W/C WITH P.T. ABLE TO PUSH SELF IN W/C.
--- NOTE | 2020-02-18 04:11 | NUR ---
SHIFT SUMMARY ADMITTED FOR HYPERGLYCEMIA/HHNK & UTI. FULL CODE. PLAN IS FOR HD PERMACATH PLACEMENT THIS AM ON 02/18/2020. SHE HAS A LEFT AKA, WHEELCHAIR FOR MOBILITY. JIMÉNEZ IN PLACE FOR RETENTION. 1000 ML FLUID RESTRICTION/DAY. WE ARE DIURESING THIS PT. SHE HAS BEEN NPO SINCE MIDNIGHT THIS SHIFT. DISCHARGE PLAN WITH BE TO DC W/HH. HX: GASTRIC STIMULATOR IS IN PLACE FOR GASTROPARESIS. HX OF FALLS AND RECENT PREVIOUS ADMISSION. SHE IS A&O X 3-4 THIS SHIFT. XARELTO HAS BEEN HELD IN ANTICIPATION OF THIS MORNING'S PROCEDURE.
[2020-02-18 04:52] LABS: Hematocrit 36.4 % (33.0-51.0); Hemoglobin 11.6 g/dL (11.5-16.0)
[2020-02-18 05:12] LABS: Albumin, Blood 2.5 g/dL (3.4-5.0); Anion Gap 9 mmol/L (6-16); Blood Urea Nitrogen 91 mg/dL (8-24); Bun/Creatinine Ratio 21.1 (12.0-20.0); CO2, Blood 23 mmol/L (21-32); Calcium, Blood 6.9 mg/dL (8.5-10.1); Chloride, Blood 101 mmol/L (98-108); Creatinine, Blood 4.32 mg/dL (0.40-1.00); Glomerular Filtration Rate 11 (60-); Glucose, Blood 89 mg/dL (70-99); Magnesium, Blood 1.9 mg/dL (1.6-2.4); Phosphorus, Blood 6.7 mg/dL (2.5-4.9); Potassium, Blood 4.2 mmol/L (3.5-5.5); Sodium, Blood 133 mmol/L (136-145)
--- NOTE | 2020-02-18 18:33 | NUR ---
SHIFT SUMMARY PATIENT DENEIS PAIN, NAUSEA, AND SHORTNESS OF BREATH. PATIENT VERY TIREED AND WEAK. PATIENT HAD PERMACATH PLACED TODAY AND DIALYSIS AT BEDSIDE AFTER. PER DR. LUA HOLD DIURETICS DUE TO DIALYSIS TODAY. AT BEDSIDE MOST OF SHIFT.
--- NOTE | 2020-02-18 23:17 | NUR ---
CONSULT CALLED CONSULT DR ALVARES HAS ORDERED CHANGES TO BUMEX ADMINISTRATION, SEE EMAR. NEW DOSEAGE OF BUMEX TO BE ADMINISTERED ONLY ON NON-DIALYSIS DAYS. GAEL IS DC'D.
[2020-02-19 04:49] LABS: BASOPHILS ABSOLUTE AUTO 0.02 K/mm3 (0.00-0.23); BASOPHILS PERCENT AUTO 0 % (0-2); EOSINOPHILS PERCENT AUTO 4 % (0-6); Hematocrit 34.8 % (33.0-51.0); Hemoglobin 11.1 g/dL (11.5-16.0); IMMATURE GRAN ABSOLUTE AUTO 0.01 K/mm3 (0.00-0.10); IMMATURE GRAN PERCENT AUTO 0 % (0-1); LYMPHOCYTES ABSOLUTE AUTO 1.35 K/mm3 (0.84-5.20); LYMPHOCYTES PERCENT AUTO 24 % (21-46); MONOCYTES ABSOLUTE AUTO 0.44 K/mm3 (0.16-1.47); MONOCYTES PERCENT AUTO 8 % (4-13); Mean Corpuscular HGB 31.7 pg (26.0-34.0); Mean Corpuscular HGB Conc 31.9 g/dL (31.5-36.5); Mean Corpuscular Volume 99 fL (80-100); Mean Platelet Volume 11.7 fL (9.1-12.4); NEUTROPHILS ABSOLUTE AUTO 3.63 K/mm3 (1.96-9.15); NEUTROPHILS PERCENT AUTO 64 % (41-73); Platelet Count 158 K/mm3 (150-400); RDW Coefficient Variation 15.3 % (11.7-14.2); RDW Standard Deviation 55.6 fL (35.1-46.3); White Blood Cell Count 5.65 K/mm3 (4.00-11.30)
[2020-02-19 05:13] LABS: Albumin, Blood 2.3 g/dL (3.4-5.0); Anion Gap 7 mmol/L (6-16); Blood Urea Nitrogen 62 mg/dL (8-24); Bun/Creatinine Ratio 18.1 (12.0-20.0); CO2, Blood 29 mmol/L (21-32); Calcium, Blood 7.2 mg/dL (8.5-10.1); Chloride, Blood 104 mmol/L (98-108); Creatinine, Blood 3.42 mg/dL (0.40-1.00); Glomerular Filtration Rate 14 (60-); Glucose, Blood 138 mg/dL (70-99); Magnesium, Blood 1.8 mg/dL (1.6-2.4); Phosphorus, Blood 5.3 mg/dL (2.5-4.9); Potassium, Blood 3.5 mmol/L (3.5-5.5); Sodium, Blood 140 mmol/L (136-145)
--- NOTE | 2020-02-19 06:00 | NUR ---
SHIFT SUMMARY NO ACUTE CHANGES THIS SHIFT. PT WAS INCONTINENT OF BOWEL X2. PT SLEPT WELL T/O THE NIGHT WITH NO COMPLAINTS OF ANY KIND. PT IS LAYING IN BED WITH EYES CLOSED, EVEN AND UNLABORED RESPIRATIONS. BED IN LOWERED POSITION WITH BED ALARM ON. CALL LIGHT AND PERSONAL ITEMS WITHIN REACH. NO APPARENT NEEDS OR DISTRESS AT THIS TIME, WILL CONTINUE TO MONITOR UNTIL REPORT GIVEN TO DAY RN.
[2020-02-19 08:09] LABS: HBSAG SCREEN Negative (Negative)
--- NOTE | 2020-02-19 17:51 | NUR ---
SHIFT SUMMARY PATIENT DENIES PAIN, NAUSEA, AND SHORTNESS OF BREATH. PATIENT WORKED WITH PT AND OT TODAY. PATIENT UP STAND PIVOT TO . PATIENT WHEELS SELF IN [place] INDEPENDENTLY. PATIENT HAD DIALYSIS TODAY. REPORTS SHE IS FEELING STONGER AND BETTER TODAY THAN YESTERDAY.
--- NOTE | 2020-02-20 04:16 | NUR ---
SHIFT SUMMARY ADMITTED FOR HHNK/UTI. FULL CODE. XARELTO IS RESUMED. PERMACATH PLACED IN CHEST WALL FOR HD. DIALYSIS TX'S HAVE BEGUN. HOLD DIURETICS ON DIALYSIS DAYS. JIMÉNEZ IS PATENT AND DRAINING FOR RETENTION. SHE HAS A LEFT AKA. SHE PLANS TO DC W/HH BACK TO HER HOME WITH HER SPOUSE WHEN STABLE. SHE HAS A 1000 ML FLUID RESTRICTION. GASTRIC STIMULATOR IS IN PLACE FOR GASTROPARESIS.
[2020-02-20 05:27] LABS: Hemoglobin 11.1 g/dL (11.5-16.0)
[2020-02-20 05:47] LABS: Albumin, Blood 2.5 g/dL (3.4-5.0); Anion Gap 7 mmol/L (6-16); Blood Urea Nitrogen 36 mg/dL (8-24); Bun/Creatinine Ratio 15.4 (12.0-20.0); CO2, Blood 30 mmol/L (21-32); Calcium, Blood 7.6 mg/dL (8.5-10.1); Chloride, Blood 103 mmol/L (98-108); Creatinine, Blood 2.34 mg/dL (0.40-1.00); Glomerular Filtration Rate 22 (60-); Glucose, Blood 166 mg/dL (70-99); Magnesium, Blood 1.8 mg/dL (1.6-2.4); Phosphorus, Blood 3.7 mg/dL (2.5-4.9); Potassium, Blood 3.6 mmol/L (3.5-5.5); Sodium, Blood 140 mmol/L (136-145)
--- NOTE | 2020-02-20 17:45 | NUR ---
SHIFT SUMMARY PATIENT ALERT AND ORIENTED THIS SHIFT. PATIENT COOPERATIVE WITH CARE. PATIENT WORKED WITH PT/OT THIS SHIFT. PATIENT SITTING UP IN BED MUCH OF THE AM, THEN SITTING UP IN THE WHEELCHAIR THROUGHOUT THIS AFTERNOON. PATIENT'S SPOUSE IN THE ROOM THIS AM. PATIENT CURRENTLY SITTING UP IN WHEELCHAIR, EATING DINNER, WATCHING TELEVISION, DENIES FURTHER NEEDS AT THIS TIME.
--- NOTE | 2020-02-21 03:58 | NUR ---
DENTAL SCHEDULER SUMMARY PT A&OX4, ABLE TO MAKE NEEDS KNOWN, FORGETFUL AT TIMES. PLEASANT AND COOPERATIVE TO CARE. NO C/O PAIN OR ANY DISCOMFORT THIS SHIFT. CALM AND RESTED IN BED T/O SHIFT. PT IS A 1 - 2 PERSON ASSIST. NO C/O CP, SOB, OR N&V. BED AT LOWEST POSITION. CALL LIGHT WITHIN REACH.
[2020-02-21 05:50] LABS: Hematocrit 38.9 % (33.0-51.0); Hemoglobin 12.1 g/dL (11.5-16.0)
[2020-02-21 06:03] LABS: Albumin, Blood 2.5 g/dL (3.4-5.0); Anion Gap 7 mmol/L (6-16); Blood Urea Nitrogen 41 mg/dL (8-24); Bun/Creatinine Ratio 15.5 (12.0-20.0); CO2, Blood 33 mmol/L (21-32); Calcium, Blood 7.3 mg/dL (8.5-10.1); Chloride, Blood 100 mmol/L (98-108); Creatinine, Blood 2.64 mg/dL (0.40-1.00); Glomerular Filtration Rate 19 (60-); Glucose, Blood 67 mg/dL (70-99); Magnesium, Blood 1.9 mg/dL (1.6-2.4); Phosphorus, Blood 4.2 mg/dL (2.5-4.9); Potassium, Blood 3.5 mmol/L (3.5-5.5); Sodium, Blood 140 mmol/L (136-145)
[2020-02-21 09:10] LABS: HBSAG SCREEN Negative (Negative); HEP A AB, IGM Negative (Negative); HEP B CORE AB, IGM Negative (Negative); HEP C VIRUS AB 0.2 (0.0-0.9)
--- NOTE | 2020-02-21 17:52 | NUR ---
SHIFT SUMMARY PATIENT ALERT AND ORIENTED. PATIENT DOWN TO DIALYSIS THIS AFTERNOON. PATIENT HAD EPISODES OF N/V THIS AM WHILE WORKING WITH BOTH PT AND OT. PATIENT WITHOUT COMPLAINTS OF N/V AFTER DIALYSIS. PATIENT STATED THAT SHE WAS ANXIOUS ABOUT DIALYSIS. PATIENT MEDICATED WITH ZOFRAN DURING N/V EPISODE. PATIENT CALM AND LAYING IN BED WATCHING TELEVISION THE REMAINDER OF THE SHIFT.
--- NOTE | 2020-02-22 04:34 | NUR ---
SCALE TESTER SUMMARY PT A&OX4, ABLE TO MAKE NEEDS KNOWN. PLEASANT AND COOPERATIVE TO CARE. STAND PIVOT TO W/C. NO C/O PAIN OR DISCOMFORT THIS SHIFT. DENIES SOB, CP, OR N&V. CALM AND RESTED IN BED T/O SHIFT. BED AT LOWEST POSITION. CALL LIGHT WITHIN REACH.
[2020-02-22 05:42] LABS: Hematocrit 33.8 % (33.0-51.0); Hemoglobin 10.2 g/dL (11.5-16.0)
[2020-02-22 06:00] LABS: Albumin, Blood 2.5 g/dL (3.4-5.0); Anion Gap 5 mmol/L (6-16); Blood Urea Nitrogen 27 mg/dL (8-24); Bun/Creatinine Ratio 13.7 (12.0-20.0); CO2, Blood 33 mmol/L (21-32); Calcium, Blood 7.5 mg/dL (8.5-10.1); Chloride, Blood 103 mmol/L (98-108); Creatinine, Blood 1.97 mg/dL (0.40-1.00); Glomerular Filtration Rate 27 (60-); Glucose, Blood 54 mg/dL (70-99); Phosphorus, Blood 3.6 mg/dL (2.5-4.9); Potassium, Blood 3.9 mmol/L (3.5-5.5); Sodium, Blood 141 mmol/L (136-145)
--- NOTE | 2020-02-22 18:06 | NUR ---
SHIFT SUMMARY PATIENT DENIES PAIN, NAUSEA, AND SHORTNESS OF BREATH. iMMODIUM X1 FOR LOOSE STOOL RELATED TO GASTROPARESIS. PATIENT WORKED WITH PT TODAY, UP STAND PIVOT TO BSC/WC. PATIENT WHEELS SELF INDEPENDENTLY IN HALLWAY. NO DIALYSIS TODAY. PATIENT CANNOT DISCHARGE UNTIL POSSIBLY MONDAY DUE TO PENDING INSURANCE AUTHORIZATION FOR DAVITA.
--- NOTE | 2020-02-23 04:23 | NUR ---
SHIFT SUMMARY PT HAS RESTED MOST OF THE NIGHT. PT IS ANXIOUSLY ANTICIPAITING DC, AND FEELING DISCOURAGED DUE TO THE FACT THAT SHE HAS TO WAIT UNTIL MONDAY OR POSSIBLY LONGER FOR DISCHAGE. SHE HAS DENIED NEEDS MOST OF THE NIGHT. PT IS VERY WEAK AND UNABLE TO STAND PIVOT TO [facility], PT LEGS BUCKLE AND SHE DOES NOT HAVE ANY STRENGTH TO SUPPORT HERSELF WHEN TRANSFERING. PT WAS SAFELY TRANSFERED TO AND FROM THE BSC TO THE BED USING 2 PEOPLE, BUT IF HER STRENGTH DOES NOT IMPROVE SHE COULD BENEFIT FROM A SIT TO STAND LIFT WHEN TRANSFERRING. VITALS ARE STABLE. NO ACUTE CHANGES IN ASSESSMENT. BED IN LOWEST POSITION, CALL LIGHT WITHIN REACH.
[2020-02-23 05:15] LABS: Hematocrit 34.1 % (33.0-51.0); Hemoglobin 10.2 g/dL (11.5-16.0)
[2020-02-23 05:49] LABS: Albumin, Blood 2.5 g/dL (3.4-5.0); Anion Gap 5 mmol/L (6-16); Blood Urea Nitrogen 34 mg/dL (8-24); Bun/Creatinine Ratio 13.4 (12.0-20.0); CO2, Blood 33 mmol/L (21-32); Calcium, Blood 7.2 mg/dL (8.5-10.1); Chloride, Blood 99 mmol/L (98-108); Creatinine, Blood 2.53 mg/dL (0.40-1.00); Glomerular Filtration Rate 20 (60-); Glucose, Blood 121 mg/dL (70-99); Magnesium, Blood 1.9 mg/dL (1.6-2.4); Phosphorus, Blood 4.1 mg/dL (2.5-4.9); Potassium, Blood 4.2 mmol/L (3.5-5.5); Sodium, Blood 137 mmol/L (136-145)
--- NOTE | 2020-02-23 18:05 | NUR ---
SHIFT SUMMARY PATIENT DENIES PAIN, NAUSEA, AND SHORTNESS OF BREATH. IMMODIUM X2 FOR LOOSE STOOLS RELATED TO GASTROPARESIS. UP 2 ASSIST STAND PIVOT TO WC. WHEELS SELF INDEPENDENTLY IN [place]KEY. TENTATIVE DISCHARGE TOMORROW IF DAVITA INTAKE/CHAIR TIME CAN BE CONFIRMED.
--- NOTE | 2020-02-24 04:04 | NUR ---
SHIFT SUMMARY NO ACUTE CHANGES TO REPORT THIS SHIFT. PT HAS RESTED MOST OF THE NIGHT AND HAS DENIED PAIN. PLAN IS FOR DC TODAY, ONCE PLANS FOR OUTPAITENT DIALYSIS CAN BE ARRANGED. ASSESSMENT HAS REMAINED UNCHANGED. BED IN LOWEST POSITION, CALL LIGHT WITHIN REACH.
[2020-02-24 06:04] LABS: Hematocrit 31.6 % (33.0-51.0); Hemoglobin 9.7 g/dL (11.5-16.0)
[2020-02-24 06:36] LABS: Albumin, Blood 2.4 g/dL (3.4-5.0); Anion Gap 6 mmol/L (6-16); Blood Urea Nitrogen 37 mg/dL (8-24); Bun/Creatinine Ratio 13.7 (12.0-20.0); CO2, Blood 32 mmol/L (21-32); Calcium, Blood 7.3 mg/dL (8.5-10.1); Chloride, Blood 98 mmol/L (98-108); Creatinine, Blood 2.71 mg/dL (0.40-1.00); Glomerular Filtration Rate 19 (60-); Glucose, Blood 98 mg/dL (70-99); Magnesium, Blood 1.9 mg/dL (1.6-2.4); Phosphorus, Blood 4.2 mg/dL (2.5-4.9); Potassium, Blood 4.4 mmol/L (3.5-5.5); Sodium, Blood 136 mmol/L (136-145)
--- NOTE | 2020-02-24 07:21 | NUR ---
PERMISSION FOR CARE TRICIA ALCANTARA, STUDENT NURSE, RECEIVED PERMISSION FROM THIS PATIENT TO PROVIDE CARE FOR HER ON 02/24/2020.
--- NOTE | 2020-02-24 07:56 | NUR ---
LOW CBG CASE LOADER OPERATOR REPORTED BS OF 67. BROUGHT IN 80 ML OF APPLEJUICE WITH 2 PACKS SUGAR MIXED IN PER PRIMARY RN, LIGIA, REQUEST. PATIENT ALERT AND RESTING IN BED, REPORTS SHE CAN FEEL BS IS LOW.
--- NOTE | 2020-02-24 15:13 | NUR ---
DISCHARGE NOTE- PT DISCHARGED HOME THIS AFTERNOON. VERBAL AND WRITTEN DISCHARGE INSTRUCTIONS WERE PROVIDED AND THE PT AND HER SPOUSE ACKNOWLEDGED UNDERSTANDING OF THEM. NO FURTHER QUESTIONS AT THE TIME OF DISCHARGE. PT IV WAS REMOVED PRIOR TO DISCHARGE AND PT WAS ESCORTED OUT VIA WC BY THE RN. NO S&S OF DISTRESS NOTED AT THE TIME OF DISCHARGE.
== END 2020-02-24 14:55 | disposition home health service (06) | DRG 698 ==
LOC: ER 11:11 → MEDS 11:12 → ICUW 11:12 → MEDS 02-14 17:11 → ENPENDDIS 02-24 14:05 → MEDS 02-24 14:55
PROVIDERS: Emergency Medicine; Family Medicine; Internal Medicine Nephrology; ADMIT Internal Medicine
PROC: 0JH63XZ Insertion of Tunneled Vascular Access Device into Chest Subcutaneous Tissue and Fascia, Percutaneous Approach (ICD-10-PCS; 2020-02-18)
PROC: 05HM33Z Insertion of Infusion Device into Right Internal Jugular Vein, Percutaneous Approach (ICD-10-PCS; 2020-02-18)
PROC: B513ZZA Fluoroscopy of Right Jugular Veins, Guidance (ICD-10-PCS; 2020-02-18)
PROC: 5A1D70Z Performance of Urinary Filtration, Intermittent, Less than 6 Hours Per Day (ICD-10-PCS; principal; 2020-02-19)
DX: T83.511A Infection and inflammatory reaction due to indwelling urethral catheter, initial encounter (principal); N18.6 End stage renal disease; N17.9 Acute kidney failure, unspecified; N25.81 Secondary hyperparathyroidism of renal origin; E87.1 Hypo-osmolality and hyponatremia; Z68.1 Body mass index [BMI] 19.9 or less, adult; E10.65 Type 1 diabetes mellitus with hyperglycemia; Z86.73 Personal history of transient ischemic attack (TIA), and cerebral infarction without residual deficits; Z89.612 Acquired absence of left leg above knee; G40.909 Epilepsy, unspecified, not intractable, without status epilepticus; M81.0 Age-related osteoporosis without current pathological fracture; F41.9 Anxiety disorder, unspecified; F32.9 Major depressive disorder, single episode, unspecified; Z79.4 Long term (current) use of insulin; E88.09 Other disorders of plasma-protein metabolism, not elsewhere classified; M79.7 Fibromyalgia; R62.7 Adult failure to thrive; R63.0 Anorexia; I95.9 Hypotension, unspecified; D63.1 Anemia in chronic kidney disease; E10.22 Type 1 diabetes mellitus with diabetic chronic kidney disease; E10.40 Type 1 diabetes mellitus with diabetic neuropathy, unspecified; E10.43 Type 1 diabetes mellitus with diabetic autonomic (poly)neuropathy; B37.9 Candidiasis, unspecified; R33.9 Retention of urine, unspecified; E10.51 Type 1 diabetes mellitus with diabetic peripheral angiopathy without gangrene; Z99.2 Dependence on renal dialysis
CPT/HCPCS: 36415; 36558; 51703; 71045; 76770; 77001; 80053; 80069; 80074; 81001; 82010; 82800; 82947; 83605; 83735; 84100; 84484; 85014; 85018; 85025; 86317; 87040; 87086; 87106; 87340; 93005; 93010; 96365; 97110; 97162; 97166; 97530; 97535; 99152; 99153; 99285-25; A9270; A9270-GY; C1750; C1769; C1894; J0696; J0881; J1644; J1650; J1815; J2405; J2930; J7030; P9041; U0004

== ENCOUNTER → 2020-03-13 | Outpatient (CLI) | payer MEDICARE ==
[~2020-03-13] MED LIST changes: +AURYXIA210 MG PO; +BASAGLAR K100 UNIT/1; +BUME2 PO; +DIPATR PO; +PROM12.5S PR
== END | disposition home or self-care (01) ==
LOC: LAB SHORT 10:35 → OLS 10:35
DX: M19.90 Unspecified osteoarthritis, unspecified site (principal); Z89.612 Acquired absence of left leg above knee; Z96.82 Presence of neurostimulator
CPT/HCPCS: 87070; 87077; 87147; 87186; 87205

== ENCOUNTER 2020-03-28 05:18 | Emergency (ER) | payer MEDICARE, OTHER ==
[~2020-03-28] VITALS: Ht 170.2 cm; Wt 54.4 kg
[~2020-03-28 05:18] MED LIST changes: -BASAGLAR K100 UNIT/1; -BUME2 PO; -DIPATR PO; -PROM12.5S PR
[2020-03-28 05:47] LABS: BASOPHILS ABSOLUTE AUTO 0.01 K/mm3 (0.00-0.23); BASOPHILS PERCENT AUTO 0 % (0-2); EOSINOPHILS ABSOLUTE AUTO 0.11 K/mm3 (0.00-0.68); EOSINOPHILS PERCENT AUTO 3 % (0-6); Hematocrit 31.2 % (33.0-51.0); Hemoglobin 9.6 g/dL (11.5-16.0); IMMATURE GRAN ABSOLUTE AUTO 0.01 K/mm3 (0.00-0.10); IMMATURE GRAN PERCENT AUTO 0 % (0-1); LYMPHOCYTES PERCENT AUTO 36 % (21-46); MONOCYTES ABSOLUTE AUTO 0.32 K/mm3 (0.16-1.47); MONOCYTES PERCENT AUTO 8 % (4-13); Mean Corpuscular HGB 31.1 pg (26.0-34.0); Mean Corpuscular HGB Conc 30.8 g/dL (31.5-36.5); Mean Corpuscular Volume 101 fL (80-100); NEUTROPHILS ABSOLUTE AUTO 2.03 K/mm3 (1.96-9.15); NEUTROPHILS PERCENT AUTO 52 % (41-73); RDW Coefficient Variation 16.4 % (11.7-14.2); Red Blood Cell Count 3.09 M/mm3 (3.80-5.20); White Blood Cell Count 3.88 K/mm3 (4.00-11.30)
[2020-03-28 06:00] LABS: Alanine Aminotransfer (ALT/SGP 58 U/L (12-78); Albumin, Blood 2.7 g/dL (3.4-5.0); Albumin/Globulin Ratio 0.9 (0.8-1.8); Alk Phos 121 U/L (50-136); Anion Gap 2 mmol/L (6-16); Aspartate Aminotrans (AST/SGOT 47 U/L (12-37); Bilirubin, Total 0.5 mg/dL (0.1-1.0); Blood Urea Nitrogen 12 mg/dL (8-24); Bun/Creatinine Ratio 12.4 (12.0-20.0); CO2, Blood 37 mmol/L (21-32); Calcium, Blood 8.2 mg/dL (8.5-10.1); Chloride, Blood 99 mmol/L (98-108); Creatinine, Blood 0.97 mg/dL (0.40-1.00); Globulin, Blood 3.1 g/dL (2.2-4.0); Glomerular Filtration Rate >60 (60-); Glucose, Blood 271 mg/dL (70-99); Potassium, Blood 3.5 mmol/L (3.5-5.5); Sodium, Blood 138 mmol/L (136-145); Total Protein, Blood 5.8 g/dL (6.4-8.2)
[2020-03-28 06:05] LABS: Platelet Count 28 K/mm3 (150-400)
[2020-03-28] MEDS ORDERED: BUME2 PO (06:12)
[2020-03-28] MEDS ORDERED: BASAGLAR K100 UNIT/1 ×2 (06:27→07:03)
[2020-03-28] MEDS ORDERED: DIPATR PO (07:02)
[2020-03-28] MEDS ORDERED: TAMS.4ER PO (07:04)
[2020-03-28 07:12] LABS: Base Excess Venous 12.4 mmol/L; Bicarbonate Venous 33.8 mmol/L (24.0-30.0); PCO2 Venous 66.8 mmHg (38-42); PO2 Venous 57.9 mmHg (38-42); pH Blood Venous 7.36 (7.34-7.37)
[2020-03-28] MEDS ORDERED: ESCI10 PO (08:21)
[2020-03-28 08:22] LABS: BASOPHILS ABSOLUTE AUTO 0.02 K/mm3 (0.00-0.23); BASOPHILS PERCENT AUTO 1 % (0-2); EOSINOPHILS ABSOLUTE AUTO 0.04 K/mm3 (0.00-0.68); EOSINOPHILS PERCENT AUTO 1 % (0-6); Hematocrit 31.3 % (33.0-51.0); Hemoglobin 9.6 g/dL (11.5-16.0); IMMATURE GRAN ABSOLUTE AUTO 0.02 K/mm3 (0.00-0.10); IMMATURE GRAN PERCENT AUTO 1 % (0-1); LYMPHOCYTES ABSOLUTE AUTO 0.59 K/mm3 (0.84-5.20); LYMPHOCYTES PERCENT AUTO 14 % (21-46); MONOCYTES ABSOLUTE AUTO 0.39 K/mm3 (0.16-1.47); MONOCYTES PERCENT AUTO 9 % (4-13); Mean Corpuscular HGB 30.8 pg (26.0-34.0); Mean Corpuscular HGB Conc 30.7 g/dL (31.5-36.5); Mean Corpuscular Volume 100 fL (80-100); NEUTROPHILS ABSOLUTE AUTO 3.24 K/mm3 (1.96-9.15); NEUTROPHILS PERCENT AUTO 75 % (41-73); RDW Coefficient Variation 16.2 % (11.7-14.2); RDW Standard Deviation 59.2 fL (35.1-46.3); Red Blood Cell Count 3.12 M/mm3 (3.80-5.20)
[2020-03-28 08:26] LABS: Platelet Count 33 K/mm3 (150-400)
== END 2020-03-28 08:50 | disposition home or self-care (01) ==
LOC: ER 05:18
PROVIDERS: Emergency Medicine
DX: G93.40 Encephalopathy, unspecified (principal); E11.649 Type 2 diabetes mellitus with hypoglycemia without coma; E11.22 Type 2 diabetes mellitus with diabetic chronic kidney disease; N18.6 End stage renal disease; F41.9 Anxiety disorder, unspecified; F32.9 Major depressive disorder, single episode, unspecified; Z86.73 Personal history of transient ischemic attack (TIA), and cerebral infarction without residual deficits; Z79.4 Long term (current) use of insulin; Z79.01 Long term (current) use of anticoagulants; Z79.899 Other long term (current) drug therapy
CPT/HCPCS: 70450; 71045; 80053; 82803; 82947; 85025; 93005; 93010; 96374; 99285-25

== ENCOUNTER 2020-04-05 18:22 | Emergency (ER) | payer MEDICARE ==
[~2020-04-05] VITALS: Ht 170.2 cm; Wt 47.6 kg
[~2020-04-05 18:22] MED LIST changes: +BASAGLAR K100 UNIT/1; +BUME2 PO; +DIPATR PO
[2020-04-05 18:55] LABS: BASOPHILS ABSOLUTE AUTO 0.02 K/mm3 (0.00-0.23); BASOPHILS PERCENT AUTO 0 % (0-2); EOSINOPHILS ABSOLUTE AUTO 0.03 K/mm3 (0.00-0.68); EOSINOPHILS PERCENT AUTO 1 % (0-6); Hematocrit 39.5 % (33.0-51.0); Hemoglobin 12.4 g/dL (11.5-16.0); IMMATURE GRAN ABSOLUTE AUTO 0.02 K/mm3 (0.00-0.10); IMMATURE GRAN PERCENT AUTO 0 % (0-1); LYMPHOCYTES ABSOLUTE AUTO 0.93 K/mm3 (0.84-5.20); LYMPHOCYTES PERCENT AUTO 17 % (21-46); MONOCYTES ABSOLUTE AUTO 0.38 K/mm3 (0.16-1.47); MONOCYTES PERCENT AUTO 7 % (4-13); Mean Corpuscular HGB 31.2 pg (26.0-34.0); Mean Corpuscular HGB Conc 31.4 g/dL (31.5-36.5); Mean Corpuscular Volume 99 fL (80-100); Mean Platelet Volume 11.2 fL (9.1-12.4); NEUTROPHILS ABSOLUTE AUTO 4.14 K/mm3 (1.96-9.15); NEUTROPHILS PERCENT AUTO 75 % (41-73); Platelet Count 233 K/mm3 (150-400); RDW Coefficient Variation 16.3 % (11.7-14.2); RDW Standard Deviation 60.1 fL (35.1-46.3); Red Blood Cell Count 3.98 M/mm3 (3.80-5.20); White Blood Cell Count 5.52 K/mm3 (4.00-11.30)
[2020-04-05 19:17] LABS: Albumin, Blood 3.8 g/dL (3.4-5.0); Albumin/Globulin Ratio 0.9 (0.8-1.8); Bilirubin, Total 0.7 mg/dL (0.1-1.0); Bun/Creatinine Ratio 29.5 (12.0-20.0); Calcium, Blood 10.6 mg/dL (8.5-10.1); Creatinine, Blood 2.1 mg/dL (0.40-1.00); Globulin, Blood 4.2 g/dL (2.2-4.0); Potassium, Blood 4.2 mmol/L (3.5-5.5)
[2020-04-05 20:18] LABS: Source, Urine Clean Catch
[2020-04-05 20:20] LABS: Bilirubin, Urine Neg (Neg); Blood, Urine Neg (Neg); Glucose Qualitative, Urine Neg (Neg); Ketones, Urine Neg (Neg); Leukocyte Esterase, Urine 1+ (Neg); Nitrite, Urine Neg (Neg); Protein, Urine 2+ (Neg); Specific Gravity, Urine 1.005 (1.003-1.022); Urobilinogen, Urine NORM (Normal)
[2020-04-05 20:28] LABS: Appearance, Urine Clear (Clear); Bacteria Few /hpf; Color, Urine Yellow (P-Yellow); Red Blood Cells, Urine Not Seen /hpf (0-2); Squamous Epithelial Cells Rare /hpf (Few)
[2020-04-05] MEDS ORDERED: PROM12.5S PR (22:05)
== END 2020-04-06 00:51 | disposition home or self-care (01) ==
LOC: ER 18:22
PROVIDERS: Physician Assistant
DX: R11.2 Nausea with vomiting, unspecified (principal); E86.0 Dehydration; E11.22 Type 2 diabetes mellitus with diabetic chronic kidney disease; N18.4 Chronic kidney disease, stage 4 (severe); E11.43 Type 2 diabetes mellitus with diabetic autonomic (poly)neuropathy; K31.84 Gastroparesis; Z99.2 Dependence on renal dialysis; Z79.4 Long term (current) use of insulin; Z86.73 Personal history of transient ischemic attack (TIA), and cerebral infarction without residual deficits; Z79.01 Long term (current) use of anticoagulants; Z79.899 Other long term (current) drug therapy
CPT/HCPCS: 36415; 80053; 81001; 83690; 84484; 85025; 87086; 93005; 93010; 96374; 96375; 99284-25; J2405; J2550; J2765; J7030

== ENCOUNTER 2020-04-07 10:47 | Emergency (ER) | payer MEDICARE ==
[~2020-04-07] VITALS: Ht 160 cm; Wt 40.8 kg
[~2020-04-07 10:47] MED LIST changes: +PROM12.5S PR
[2020-04-07 11:29] LABS: BASOPHILS ABSOLUTE AUTO 0.02 K/mm3 (0.00-0.23); BASOPHILS PERCENT AUTO 0 % (0-2); EOSINOPHILS ABSOLUTE AUTO 0.06 K/mm3 (0.00-0.68); EOSINOPHILS PERCENT AUTO 1 % (0-6); IMMATURE GRAN ABSOLUTE AUTO 0.02 K/mm3 (0.00-0.10); IMMATURE GRAN PERCENT AUTO 0 % (0-1); LYMPHOCYTES ABSOLUTE AUTO 1.62 K/mm3 (0.84-5.20); LYMPHOCYTES PERCENT AUTO 29 % (21-46); MONOCYTES ABSOLUTE AUTO 0.52 K/mm3 (0.16-1.47); MONOCYTES PERCENT AUTO 9 % (4-13); Mean Corpuscular HGB 31.3 pg (26.0-34.0); Mean Corpuscular Volume 101 fL (80-100); Mean Platelet Volume 10.9 fL (9.1-12.4); NEUTROPHILS ABSOLUTE AUTO 3.33 K/mm3 (1.96-9.15); NEUTROPHILS PERCENT AUTO 60 % (41-73); Platelet Count 253 K/mm3 (150-400); RDW Coefficient Variation 17.8 % (11.7-14.2); RDW Standard Deviation 65.1 fL (35.1-46.3); Red Blood Cell Count 4.15 M/mm3 (3.80-5.20); White Blood Cell Count 5.57 K/mm3 (4.00-11.30)
[2020-04-07 11:42] LABS: Albumin, Blood 3.4 g/dL (3.4-5.0); Albumin/Globulin Ratio 0.9 (0.8-1.8); Bilirubin, Total 0.7 mg/dL (0.1-1.0); Bun/Creatinine Ratio 28.5 (12.0-20.0); Calcium, Blood 9.5 mg/dL (8.5-10.1); Creatinine, Blood 2.21 mg/dL (0.40-1.00); Globulin, Blood 3.8 g/dL (2.2-4.0); Potassium, Blood 3.8 mmol/L (3.5-5.5); Total Protein, Blood 7.2 g/dL (6.4-8.2); Troponin I 0.289 ng/mL (0.000-0.040)
[2020-04-07 12:38] LABS: Source, Urine Clean Catch
[2020-04-07 13:08] LABS: Bilirubin, Urine Neg (Neg); Blood, Urine Neg (Neg); Glucose Qualitative, Urine 1+ (Neg); Ketones, Urine Neg (Neg); Leukocyte Esterase, Urine 2+ (Neg); Nitrite, Urine Neg (Neg); Protein, Urine 2+ (Neg); Urobilinogen, Urine NORM (Normal)
[2020-04-07 13:20] LABS: Appearance, Urine Hazy (Clear); Color, Urine Yellow (P-Yellow)
[2020-04-07 13:24] LABS: Red Blood Cells, Urine Rare /hpf (0-2)
[2020-04-07 13:25] LABS: Squamous Epithelial Cells Mod /hpf (Few)
[2020-04-07 13:26] LABS: Bacteria Few /hpf
== END 2020-04-07 13:54 | disposition home or self-care (01) ==
LOC: ER 10:47
PROVIDERS: Physician Assistant
DX: E11.22 Type 2 diabetes mellitus with diabetic chronic kidney disease (principal); N18.4 Chronic kidney disease, stage 4 (severe); R53.1 Weakness; R79.89 Other specified abnormal findings of blood chemistry; E11.43 Type 2 diabetes mellitus with diabetic autonomic (poly)neuropathy; K31.84 Gastroparesis; Z79.4 Long term (current) use of insulin; Z79.899 Other long term (current) drug therapy; Z86.73 Personal history of transient ischemic attack (TIA), and cerebral infarction without residual deficits
CPT/HCPCS: 36415; 80053; 81001; 84484; 85025; 87086; 93005; 93010; 99284-25; J7030

== ENCOUNTER 2020-04-22 13:35 | Emergency (ER) | payer MEDICARE, SELFPAY ==
[~2020-04-22] VITALS: Ht 170.2 cm; Wt 45.4 kg
[2020-04-22 15:02] LABS: BASOPHILS ABSOLUTE AUTO 0.01 K/mm3 (0.00-0.23); BASOPHILS PERCENT AUTO 0 % (0-2); EOSINOPHILS ABSOLUTE AUTO 0.06 K/mm3 (0.00-0.68); EOSINOPHILS PERCENT AUTO 1 % (0-6); IMMATURE GRAN ABSOLUTE AUTO 0.05 K/mm3 (0.00-0.10); IMMATURE GRAN PERCENT AUTO 1 % (0-1); LYMPHOCYTES ABSOLUTE AUTO 1.33 K/mm3 (0.84-5.20); LYMPHOCYTES PERCENT AUTO 15 % (21-46); MONOCYTES ABSOLUTE AUTO 0.63 K/mm3 (0.16-1.47); MONOCYTES PERCENT AUTO 7 % (4-13); Mean Corpuscular HGB 31.6 pg (26.0-34.0); Mean Corpuscular HGB Conc 31.3 g/dL (31.5-36.5); Mean Corpuscular Volume 101 fL (80-100); Mean Platelet Volume 11.3 fL (9.1-12.4); NEUTROPHILS ABSOLUTE AUTO 7.06 K/mm3 (1.96-9.15); NEUTROPHILS PERCENT AUTO 77 % (41-73); Platelet Count 124 K/mm3 (150-400); RDW Coefficient Variation 16.6 % (11.7-14.2); RDW Standard Deviation 62.8 fL (35.1-46.3); Red Blood Cell Count 4.74 M/mm3 (3.80-5.20); White Blood Cell Count 9.14 K/mm3 (4.00-11.30)
[2020-04-22 15:30] LABS: Albumin, Blood 3.7 g/dL (3.4-5.0); Albumin/Globulin Ratio 0.9 (0.8-1.8); Bilirubin, Total 0.8 mg/dL (0.1-1.0); Bun/Creatinine Ratio 32.7 (12.0-20.0); Calcium, Blood 9.1 mg/dL (8.5-10.1); Creatinine, Blood 2.94 mg/dL (0.40-1.00); Magnesium, Blood 2.4 mg/dL (1.6-2.4); Phosphorus, Blood 4.3 mg/dL (2.5-4.9); Potassium, Blood 3.7 mmol/L (3.5-5.5); Total Protein, Blood 7.7 g/dL (6.4-8.2)
[2020-04-22 17:06] LABS: Source, Urine Clean Catch
[2020-04-22 17:08] LABS: Appearance, Urine Turbid (Clear); Bilirubin, Urine Neg (Neg); Blood, Urine 4+ (Neg); Color, Urine Yellow (P-Yellow); Glucose Qualitative, Urine 1+ (Neg); Ketones, Urine Neg (Neg); Leukocyte Esterase, Urine 3+ (Neg); Nitrite, Urine Neg (Neg); Protein, Urine 3+ (Neg); Urobilinogen, Urine NORM (Normal)
[2020-04-22 17:15] LABS: White Blood Cells, Urine TNTC /hpf (0-5)
[2020-04-22 17:16] LABS: Bacteria Many /hpf; Squamous Epithelial Cells Few /hpf (Few); Yeast/Fungi Urine Many /hpf
[2020-04-22] MEDS ORDERED: CEPH500 PO (18:32)
== END 2020-04-22 19:17 | disposition home or self-care (01) ==
LOC: ER 13:35
PROVIDERS: Emergency Medicine
DX: N39.0 Urinary tract infection, site not specified (principal); R56.9 Unspecified convulsions; E11.22 Type 2 diabetes mellitus with diabetic chronic kidney disease; N18.4 Chronic kidney disease, stage 4 (severe); E11.43 Type 2 diabetes mellitus with diabetic autonomic (poly)neuropathy; K31.84 Gastroparesis; Z79.4 Long term (current) use of insulin; Z79.899 Other long term (current) drug therapy; Z86.73 Personal history of transient ischemic attack (TIA), and cerebral infarction without residual deficits
CPT/HCPCS: 80053; 81001; 83735; 84100; 85025; 93005; 93010; 96365; 99284-25; J0696

== ENCOUNTER 2020-04-26 21:29 | Emergency (ER) | payer MEDICARE, SELFPAY ==
[~2020-04-26] VITALS: Ht 172.7 cm; Wt 49.4 kg
[2020-04-26] MEDS ORDERED: MIDO5 PO (21:51)
[2020-04-26] MEDS ORDERED: CIPR500 (22:03)
[2020-04-26 22:13] LABS: BASOPHILS ABSOLUTE AUTO 0.01 K/mm3 (0.00-0.23); BASOPHILS PERCENT AUTO 0 % (0-2); EOSINOPHILS ABSOLUTE AUTO 0.02 K/mm3 (0.00-0.68); EOSINOPHILS PERCENT AUTO 0 % (0-6); Hematocrit 42.8 % (33.0-51.0); Hemoglobin 13.5 g/dL (11.5-16.0); IMMATURE GRAN ABSOLUTE AUTO 0.02 K/mm3 (0.00-0.10); IMMATURE GRAN PERCENT AUTO 0 % (0-1); LYMPHOCYTES ABSOLUTE AUTO 0.88 K/mm3 (0.84-5.20); LYMPHOCYTES PERCENT AUTO 10 % (21-46); MONOCYTES ABSOLUTE AUTO 0.59 K/mm3 (0.16-1.47); MONOCYTES PERCENT AUTO 7 % (4-13); Mean Corpuscular HGB 31.1 pg (26.0-34.0); Mean Corpuscular HGB Conc 31.5 g/dL (31.5-36.5); Mean Corpuscular Volume 99 fL (80-100); NEUTROPHILS PERCENT AUTO 83 % (41-73); Platelet Count 99 K/mm3 (150-400); RDW Coefficient Variation 15.3 % (11.7-14.2); Red Blood Cell Count 4.34 M/mm3 (3.80-5.20); White Blood Cell Count 9.12 K/mm3 (4.00-11.30)
[2020-04-26 22:30] LABS: Albumin, Blood 3.4 g/dL (3.4-5.0); Bilirubin, Total 0.6 mg/dL (0.1-1.0); Bun/Creatinine Ratio 31.7 (12.0-20.0); Calcium, Blood 7.8 mg/dL (8.5-10.1); Creatinine, Blood 2.78 mg/dL (0.40-1.00); Globulin, Blood 3.5 g/dL (2.2-4.0); Potassium, Blood 3.5 mmol/L (3.5-5.5); Total Protein, Blood 6.9 g/dL (6.4-8.2)
== END 2020-04-26 23:25 | disposition home or self-care (01) ==
LOC: ER 21:29
PROVIDERS: Emergency Medicine
DX: E10.65 Type 1 diabetes mellitus with hyperglycemia (principal); E10.22 Type 1 diabetes mellitus with diabetic chronic kidney disease; N18.6 End stage renal disease; E10.43 Type 1 diabetes mellitus with diabetic autonomic (poly)neuropathy; K31.84 Gastroparesis; Z99.2 Dependence on renal dialysis; Z79.4 Long term (current) use of insulin; Z79.899 Other long term (current) drug therapy; Z86.73 Personal history of transient ischemic attack (TIA), and cerebral infarction without residual deficits
CPT/HCPCS: 80053; 82947; 85025; 99284-25

== ENCOUNTER 2020-05-17 13:53 | Observation (INO) | payer MEDICARE, SELFPAY ==
[~2020-05-17] VITALS: Ht 170.2 cm; Wt 42.6 kg
[~2020-05-17 13:53] MED LIST changes: +CIPR500
[2020-05-17 15:51] LABS: Source, Urine Clean Catch
[2020-05-17 15:53] LABS: Albumin, Blood 2.8 g/dL (3.4-5.0); Albumin/Globulin Ratio 0.8 (0.8-1.8); Bilirubin, Total 0.6 mg/dL (0.1-1.0); Calcium, Blood 8.2 mg/dL (8.5-10.1); Creatinine, Blood 2.32 mg/dL (0.40-1.00); Globulin, Blood 3.5 g/dL (2.2-4.0); Magnesium, Blood 1.9 mg/dL (1.6-2.4); Potassium, Blood 3.8 mmol/L (3.5-5.5); Total Protein, Blood 6.3 g/dL (6.4-8.2)
[2020-05-17 15:55] LABS: Chloride (POC) 97 mmol/L (98-108); Creatinine (POC) 2.5 mg/dL (0.6-1.0); Glucose (ISTAT POC) 72 mg/dL (70-99); Hemoglobin (POC) 10.9 g/dL (12.0-16.0); Potassium (POC) 3.2 mmol/L (3.5-5.5); Sodium (POC) 139 mmol/L (135-148); Total CO2 (POC) 34 mmol/L (21-32)
[2020-05-17 16:01] LABS: BASOPHILS ABSOLUTE AUTO 0.01 K/mm3 (0.00-0.23); BASOPHILS PERCENT AUTO 0 % (0-2); EOSINOPHILS ABSOLUTE AUTO 0.03 K/mm3 (0.00-0.68); EOSINOPHILS PERCENT AUTO 1 % (0-6); Hematocrit 34.7 % (33.0-51.0); Hemoglobin 11.1 g/dL (11.5-16.0); IMMATURE GRAN ABSOLUTE AUTO 0.02 K/mm3 (0.00-0.10); IMMATURE GRAN PERCENT AUTO 0 % (0-1); LYMPHOCYTES ABSOLUTE AUTO 1.65 K/mm3 (0.84-5.20); LYMPHOCYTES PERCENT AUTO 26 % (21-46); MONOCYTES ABSOLUTE AUTO 0.49 K/mm3 (0.16-1.47); MONOCYTES PERCENT AUTO 8 % (4-13); Mean Corpuscular Volume 100 fL (80-100); Mean Platelet Volume 11.6 fL (9.1-12.4); NEUTROPHILS ABSOLUTE AUTO 4.17 K/mm3 (1.96-9.15); NEUTROPHILS PERCENT AUTO 65 % (41-73); Platelet Count 117 K/mm3 (150-400); RDW Coefficient Variation 14.8 % (11.7-14.2); RDW Standard Deviation 54.2 fL (35.1-46.3); Red Blood Cell Count 3.47 M/mm3 (3.80-5.20); White Blood Cell Count 6.37 K/mm3 (4.00-11.30)
[2020-05-17 16:01] LABS: Appearance, Urine Cloudy (Clear); Bilirubin, Urine Neg (Neg); Blood, Urine 3+ (Neg); Color, Urine Yellow (P-Yellow); Glucose Qualitative, Urine 2+ (Neg); Ketones, Urine Neg (Neg); Leukocyte Esterase, Urine 3+ (Neg); Nitrite, Urine Neg (Neg); Protein, Urine 3+ (Neg); Specific Gravity, Urine 1.015 (1.003-1.022); Urobilinogen, Urine NORM (Normal)
[2020-05-17 16:10] LABS: Bacteria Few /hpf; Red Blood Cells, Urine Not Seen /hpf (0-2); Squamous Epithelial Cells Few /hpf (Few); White Blood Cells, Urine TNTC /hpf (0-5); Yeast/Fungi Urine Few /hpf
[2020-05-17] MEDS ORDERED: AMOCLA875 PO (16:32)
[2020-05-17] MEDS ORDERED: ONDA4ODT MM (17:06)
[2020-05-17] MEDS ORDERED: Diflucan100 MG PO (17:29)
[2020-05-17] MEDS ORDERED: BASAGLAR K100 UNIT/1 SC (18:13)
[2020-05-18 03:56] LABS: Hematocrit 30.1 % (33.0-51.0); Hemoglobin 9.5 g/dL (11.5-16.0)
--- NOTE | 2020-05-18 04:25 | NUR ---
SHIFT SUMMARY ASSUMED CARE OF PT AT 2030. PT IS A/OX4. HEART SOUNDS REGULAR TELE SHOWS SINUS @ 90, PT HAS HAD INCREASED BP THIS SHIFT, MEDICATED PER EMAR. LUNG SOUNDS CLEAR. PT USED BEDPAN T/O THE NIGHT BEUCASE SHE SAID THAT IN THE ED HER LEG WAS TOO WEAK TO STAND UP. PT ATE WELL BUT SHE STATED THAT SHE HAS LOST ABOUT 20LB DUE TO DECREASED APPETITE. PT STATED THAT SHE IS GLAD SHE IS HERE TO GET CARE BUT IT IS PROPABLY HER FAULT THAT SHE HAS A UTI BECAUSE SHE DOESNT DRINK ENOUGH WATER; PT DOESNT LIKE TO ASK FAMILY FOR HELP SO SHE AVOIDS DRINKING WATER SO THAT SHE DOESNT HAVE TO ASK THEM FOR HELP TO GO TO THE BATHROOM. PT HAS SMALL WOUNDS ON R BIG TOE AND THE SIDE OF HER FOOT. PICTURES TAKEN, WOUNDS CLEANED, AND DRESSING APPLIED, PT STATES THAT SHE HAS SOMEONE COME TO THE HOUSE TO TAKE CARE OF IT. CALL LIGHT IN REACH, BED IN LOWEST POSTION.
[2020-05-18 04:34] LABS: Albumin, Blood 2.4 g/dL (3.4-5.0); Albumin/Globulin Ratio 0.8 (0.8-1.8); Bilirubin, Total 0.6 mg/dL (0.1-1.0); Bun/Creatinine Ratio 25.9 (12.0-20.0); Calcium, Blood 7.4 mg/dL (8.5-10.1); Creatinine, Blood 2.2 mg/dL (0.40-1.00); Globulin, Blood 3.1 g/dL (2.2-4.0); Magnesium, Blood 1.7 mg/dL (1.6-2.4); Phosphorus, Blood 3.7 mg/dL (2.5-4.9); Potassium, Blood 4.4 mmol/L (3.5-5.5); Total Protein, Blood 5.5 g/dL (6.4-8.2)
[2020-05-18] MEDS ORDERED: ACET325 PO (12:54)
[2020-05-18] MEDS ORDERED: PROM12.5S PR (12:55)
--- NOTE | 2020-05-18 14:56 | NUR ---
DISCHARGE NOTE- PT WAS GIVEN VERBAL AND WRITTEN DISCHARGE INSTRUCTIONS AND ACKNOWLEDGED UNDERSTANDING OF THEM. IV AND TELE DC'D PRIOR TO DISCHARGE. NO FURTHER QUESTIONS AT THE TIME OF DISCHARGE. PT ESCORTED OUT VIA WC BY EBD TEACHER.
--- NOTE | 2020-05-18 17:19 | NUR ---
ADMIT: 05/17/20 DISCHARGE: 05/18/20 DX: syncope CC: [email or web address] ADMIT: 02/13/20 DISCHARGE: 02/24/20DX: HYPERGLYCEMIA CC: CPEABODY ADMIT:02/03/20 DISCHARGE: 02/06/20 DX: HYPOGLYCEMIA CC: CPEABODY ADMIT 12/02/19 DISCHARGE:12/04/19 DX: CC: CPEABODY ADMIT: 11/30/19 DISCHARGE: 12/01/19 DX: CC: ADMIT: 11/07/2019 DISCHARGE: 11/04/19 DX: SEIZURE CC: CPEABODY ADMIT: 10/10/19 DISCHARGE: DX: NON HEALING ULCERATIONS, DELUCA CC: DID NOT MEET ADMIT: 04/22/19 DISCHARGE: DX: NON HEALING WOUND CC: CPEABODY SAMIRA CALL: Call Clare at home for samira RESIDENCE: HOME with CAREGIVER: SELF CARE PARTIAL 05/18/20 extruder tender to start in 1 week. SPOUSE- JOSE JEWELL [phone] CHILD- JOSE HERNAN [phone] CHILD- MATHEUS HOPKINS [phone] DX: TYPE 1 DM, CKD STAGE 4, CHRONIC HYPOTENSION, TIA, AMPUTATION SEE PROBLEN'S LIST. DME: WHEELCHAIR CCM: 04/13/2016 REFERRED FOR TYPE 1 DM. HOME HEALTH: [facility] - resume 05/18/20 made contact with Maame at [facility] SUMMARY: Admit 05/17/20 Discharge 05/18/20 home with , resumed [email or web address]. Met with Clare prior to discharge, Cannot think of any care needs at home, will call me if finds some. Discussed samira call. Meg will call 24-48 hours to follow up and schedulede 1 week appt with PCP or SAMIRA Dr. sanchez 1: Syncope and collapse
== END 2020-05-18 14:02 | disposition home health service (06) ==
LOC: ER 13:53 → MEDS 13:54 → ER 20:22 → MEDS 20:53 → ENPENDDIS 05-18 11:17 → MEDS 05-18 14:02
PROVIDERS: Emergency Medicine; ADMIT Family Medicine
DX: E10.22 Type 1 diabetes mellitus with diabetic chronic kidney disease (principal); E10.42 Type 1 diabetes mellitus with diabetic polyneuropathy; E10.51 Type 1 diabetes mellitus with diabetic peripheral angiopathy without gangrene; E10.610 Type 1 diabetes mellitus with diabetic neuropathic arthropathy; E10.52 Type 1 diabetes mellitus with diabetic peripheral angiopathy with gangrene; I96 Gangrene, not elsewhere classified; I12.0 Hypertensive chronic kidney disease with stage 5 chronic kidney disease or end stage renal disease; N18.6 End stage renal disease; E78.5 Hyperlipidemia, unspecified; G40.909 Epilepsy, unspecified, not intractable, without status epilepticus; M48.00 Spinal stenosis, site unspecified; E10.43 Type 1 diabetes mellitus with diabetic autonomic (poly)neuropathy; K31.84 Gastroparesis; E43 Unspecified severe protein-calorie malnutrition; N39.0 Urinary tract infection, site not specified; E87.6 Hypokalemia; F41.8 Other specified anxiety disorders; R62.7 Adult failure to thrive; Z99.2 Dependence on renal dialysis; Z89.429 Acquired absence of other toe(s), unspecified side; Z89.612 Acquired absence of left leg above knee
CPT/HCPCS: 36415; 70450; 72125; 80047; 80053; 81001; 82947; 83605; 83735; 84100; 84484; 85014; 85018; 85025; 87040; 87086; 93005; 93010; 96361; 96365; 96366; 96372; 96375; 99285-25; A9270; G0378; J0360; J0696; J1644; J3480; J7030

== ENCOUNTER 2020-06-01 13:45 | Day surgery (SDC) | payer MEDICARE, SELFPAY ==
[~2020-06-01 13:45] MED LIST changes: +Diflucan100 MG PO; +ONDA4ODT MM
== END 2020-06-01 23:57 | disposition home or self-care (01) ==
LOC: WOUND 13:45
DX: E10.621 Type 1 diabetes mellitus with foot ulcer (principal); L97.516 Non-pressure chronic ulcer of other part of right foot with bone involvement without evidence of necrosis; E10.22 Type 1 diabetes mellitus with diabetic chronic kidney disease; N18.9 Chronic kidney disease, unspecified; E10.51 Type 1 diabetes mellitus with diabetic peripheral angiopathy without gangrene; E10.42 Type 1 diabetes mellitus with diabetic polyneuropathy; Z79.4 Long term (current) use of insulin; Z89.421 Acquired absence of other right toe(s)
CPT/HCPCS: G0463

== ENCOUNTER 2020-06-09 00:43 | Day surgery (SDC) | payer MEDICARE ==
[2020-06-09] MEDS ORDERED: XARELTO20 MG PO (07:24)
== END 2020-06-09 23:07 | disposition home or self-care (01) ==
LOC: WOUND 00:43
DX: E10.621 Type 1 diabetes mellitus with foot ulcer (principal); L97.516 Non-pressure chronic ulcer of other part of right foot with bone involvement without evidence of necrosis; B96.89 Other specified bacterial agents as the cause of diseases classified elsewhere; E10.51 Type 1 diabetes mellitus with diabetic peripheral angiopathy without gangrene; E10.22 Type 1 diabetes mellitus with diabetic chronic kidney disease; N18.6 End stage renal disease; E10.42 Type 1 diabetes mellitus with diabetic polyneuropathy; L89.152 Pressure ulcer of sacral region, stage 2; E10.65 Type 1 diabetes mellitus with hyperglycemia; Z89.422 Acquired absence of other left toe(s); Z98.62 Peripheral vascular angioplasty status; Z88.1 Allergy status to other antibiotic agents; Z88.5 Allergy status to narcotic agent
CPT/HCPCS: 87071; 87075; 87077; 87205; 88305; 88311

== ENCOUNTER 2020-06-09 06:32 | Day surgery (SDC) | payer MEDICARE, SELFPAY ==
[~2020-06-09] VITALS: Ht 167.6 cm; Wt 50.0 kg
[2020-06-09] MEDS ORDERED: XARELTO20 MG PO (07:24)
[2020-06-09 07:31] LABS: BASOPHILS ABSOLUTE AUTO 0.01 K/mm3 (0.00-0.23); BASOPHILS PERCENT AUTO 0 % (0-2); EOSINOPHILS ABSOLUTE AUTO 0.07 K/mm3 (0.00-0.68); EOSINOPHILS PERCENT AUTO 1 % (0-6); Hematocrit 23.4 % (33.0-51.0); Hemoglobin 7.4 g/dL (11.5-16.0); IMMATURE GRAN ABSOLUTE AUTO 0.02 K/mm3 (0.00-0.10); IMMATURE GRAN PERCENT AUTO 0 % (0-1); LYMPHOCYTES ABSOLUTE AUTO 0.68 K/mm3 (0.84-5.20); LYMPHOCYTES PERCENT AUTO 14 % (21-46); MONOCYTES ABSOLUTE AUTO 0.33 K/mm3 (0.16-1.47); MONOCYTES PERCENT AUTO 7 % (4-13); Mean Corpuscular HGB 33.2 pg (26.0-34.0); Mean Corpuscular HGB Conc 31.6 g/dL (31.5-36.5); Mean Corpuscular Volume 105 fL (80-100); NEUTROPHILS ABSOLUTE AUTO 3.89 K/mm3 (1.96-9.15); NEUTROPHILS PERCENT AUTO 78 % (41-73); Platelet Count 94 K/mm3 (150-400); RDW Coefficient Variation 17.8 % (11.7-14.2); RDW Standard Deviation 66.9 fL (35.1-46.3); Red Blood Cell Count 2.23 M/mm3 (3.80-5.20)
[2020-06-09 07:33] LABS: Mean Platelet Volume 13.3 fL (9.1-12.4)
[2020-06-09 07:41] LABS: International Normalized Ratio 1.29; Prothrombin Time Results 13.6 Sec (9.7-11.5)
[2020-06-09 07:43] LABS: Bun/Creatinine Ratio 21.4 (12.0-20.0); Calcium, Blood 7.9 mg/dL (8.5-10.1); Creatinine, Blood 2.62 mg/dL (0.40-1.00); Potassium, Blood 4.4 mmol/L (3.5-5.5)
--- NOTE | 2020-06-09 10:30 | NUR ---
PT BROUGHT BACK TO RECOVERY ROOM ON GURNEY IN SUPINE POSITION. LEFT GROIN SITE SOFT NON TENDER WITH NO BLEEDING OR OOZING NOTED. ANGIOSEAL CLOSURE DEVICE IN PLACE TO LEFT ARTERIAL SITE. PT APPEARS TO BE DROWSY, SNORING WITH EYES CLOSED. VSS. CALL LIGHT IN REACH.
--- NOTE | 2020-06-09 11:15 | NUR ---
HOB RAISED TO 90 DEGREES, PT TOLERATES PO FLUIDS/FOOD WITH NO DIFFICULTIES. SPOKE WITH ON TELEPHONE TO UPDATE ON PLAN OF CARE. PT DENIES ANY NEEDS AT THIS TIME. LEFT GROIN SITE SOFT NON TENDER. CALL LIGHT IN REACH.
--- NOTE | 2020-06-09 12:24 | NUR ---
PT AND S/O VERBALIZES UNDERSTANDING WRITTEN AND VERBAL ORDERS. PT DENIES QUESTIONS OR CONCERNS. VSS. L FEMORAL SITE REMAINS CLEAR/ STABLE. NADN. CALL LIGHT WITHIN REACH.
--- NOTE | 2020-06-09 13:12 | NUR ---
PT AND VERBALIZED UNDERSTANDING OF D/C INSTRUCTIONS. PAPERWORK PROVIDED IN FOLDER. IV REMOVED FROM RAC WITH CATH INTACT, PRESSURE DRESSING APPLIED. ASSIST PT INTO W/C. TAKEN OUT TO PRIVATE VEHICLE VIA W/C NADN. LEFT GROIN SITE REMAINS SOFT NON TENDER WITH NO ACTIVE BLEEDING, OOZING, OR PAIN.
== END 2020-06-09 13:30 | disposition home or self-care (01) ==
LOC: MHTC 06:32
PROVIDERS: Radiology Diagnostic Radiology
DX: E10.51 Type 1 diabetes mellitus with diabetic peripheral angiopathy without gangrene (principal); R20.9 Unspecified disturbances of skin sensation; E10.22 Type 1 diabetes mellitus with diabetic chronic kidney disease; N18.30 Chronic kidney disease, stage 3 unspecified; E78.5 Hyperlipidemia, unspecified; Z88.5 Allergy status to narcotic agent; Z88.1 Allergy status to other antibiotic agents; Z88.8 Allergy status to other drugs, medicaments and biological substances; Z79.4 Long term (current) use of insulin; Z89.512 Acquired absence of left leg below knee; Z89.422 Acquired absence of other left toe(s)
CPT/HCPCS: 36415; 37224; 37228; 37232; 75716; 75774; 80048; 85025; 85610; 99152; 99153; C1725; C1760; C1769; C1887; C1894; J1644; J2250; J3010; J7030; J7050; Q9967

== ENCOUNTER 2020-06-09 14:26 | Day surgery (SDC) | payer MEDICARE ==
[~2020-06-09 14:26] MED LIST changes: +XARELTO20 MG PO
== END 2020-06-09 23:07 | disposition home or self-care (01) ==
LOC: RAD 14:26
DX: E10.621 Type 1 diabetes mellitus with foot ulcer (principal); L97.519 Non-pressure chronic ulcer of other part of right foot with unspecified severity; E10.65 Type 1 diabetes mellitus with hyperglycemia; E10.51 Type 1 diabetes mellitus with diabetic peripheral angiopathy without gangrene; E10.22 Type 1 diabetes mellitus with diabetic chronic kidney disease; E10.42 Type 1 diabetes mellitus with diabetic polyneuropathy; N18.9 Chronic kidney disease, unspecified; Z89.421 Acquired absence of other right toe(s)
CPT/HCPCS: 73630

== ENCOUNTER 2020-06-09 22:19 | Inpatient (IN) | payer MEDICARE, SELFPAY ==
[~2020-06-09] VITALS: Ht 162.6 cm; Wt 49.9 kg
[2020-06-09 22:45] LABS: Calcium, Ionized (POC) 0.87 mmol/L (1.10-1.46); Chloride (POC) 105 mmol/L (98-108); Creatinine (POC) 2.4 mg/dL (0.6-1.3); Glucose (ISTAT POC) 375 mg/dL (70-99); Hemoglobin (POC) 5.4 g/dL (12.0-17.5); Potassium (POC) 3.8 mmol/L (3.5-5.5); Sodium (POC) 135 mmol/L (135-148); Total CO2 (POC) 12 mmol/L (21-32)
[2020-06-09 22:53] LABS: PCO2 Arterial 42.1 mmHg (35-45); PO2 Arterial 93.5 mmHg (80-100)
[2020-06-09 22:54] LABS: Source, Urine Catheter
[2020-06-09 22:55] LABS: BASOPHILS ABSOLUTE AUTO 0.02 K/mm3 (0.00-0.23); BASOPHILS PERCENT AUTO 0 % (0-2); EOSINOPHILS ABSOLUTE AUTO 0.02 K/mm3 (0.00-0.68); EOSINOPHILS PERCENT AUTO 0 % (0-6); Hematocrit 20.3 % (33.0-53.0); IMMATURE GRAN PERCENT AUTO 1 % (0-1); LYMPHOCYTES ABSOLUTE AUTO 3.69 K/mm3 (0.84-5.20); LYMPHOCYTES PERCENT AUTO 42 % (21-46); MONOCYTES ABSOLUTE AUTO 0.14 K/mm3 (0.16-1.47); MONOCYTES PERCENT AUTO 2 % (4-13); Mean Corpuscular HGB 33.7 pg (26.0-34.0); Mean Corpuscular HGB Conc 28.1 g/dL (31.5-36.5); Mean Corpuscular Volume 120 fL (80-100); Mean Platelet Volume 13.4 fL (9.1-12.4); NEUTROPHILS ABSOLUTE AUTO 4.73 K/mm3 (1.96-9.15); NEUTROPHILS PERCENT AUTO 55 % (41-73); NRBC ABSOLUTE 0.02 K/mm3 (0.00-0.02); NRBC Auto 0.2 /100 WBC (0.0-0.2); Platelet Count 80 K/mm3 (150-400); RDW Coefficient Variation 17.9 % (11.7-14.2); RDW Standard Deviation 76.1 fL (35.1-46.3); Red Blood Cell Count 1.69 M/mm3 (3.80-5.90)
[2020-06-09 22:57] LABS: Hemoglobin 5.7 g/dL (11.5-17.5)
[2020-06-09 23:01] LABS: Appearance, Urine Cloudy (Clear); Bilirubin, Urine Neg (Neg); Blood, Urine 2+ (Neg); Color, Urine Yellow (P-Yellow); Glucose Qualitative, Urine 1+ (Neg); Ketones, Urine 1+ (Neg); Leukocyte Esterase, Urine 3+ (Neg); Nitrite, Urine Neg (Neg); Protein, Urine 3+ (Neg); Specific Gravity, Urine 1.015 (1.003-1.022); Urobilinogen, Urine NORM (Normal)
--- NOTE | 2020-06-09 23:04 | NUR ---
ETT SECURED AT 23 CM AT TEETH
[2020-06-09 23:07] LABS: Bacteria Many /hpf; Red Blood Cells, Urine 0-2 /hpf (0-2); Squamous Epithelial Cells Not Seen /hpf (Few); Transitional Epithelial Cells Few /hpf (0-Rare); White Blood Cells, Urine 50-100 /hpf (0-5); Yeast/Fungi Urine Mod /hpf
[2020-06-09 23:13] LABS: BAND PERCENT MAN 9 % (0-8); BASOPHILS PERCENT MAN 0 % (0-2); EOSINOPHILS ABSOLUTE MAN 0.08 K/mm3 (0.00-0.68); EOSINOPHILS PERCENT MAN 1 % (0-6); LYMPHOCYTES PERCENT MAN 38 % (21-46); MONOCYTES ABSOLUTE MAN 0.08 K/mm3 (0.16-1.47); MONOCYTES PERCENT MAN 1 % (4-13); NEUTROPHILS ABSOLUTE MAN 5.22 K/mm3 (1.96-9.15); SEG NEUTROPHILS PERCENT MAN 51 % (41-73); TOTAL CELLS COUNTED 100
[2020-06-09 23:15] LABS: Alanine Aminotransfer (ALT/SGP 96 U/L (12-78); Albumin, Blood 1.6 g/dL (3.4-5.0); Albumin/Globulin Ratio 0.7 (0.8-1.8); Alk Phos 288 U/L (50-136); Anion Gap 18 mmol/L (6-16); Aspartate Aminotrans (AST/SGOT 54 U/L (12-37); Bilirubin, Total 0.3 mg/dL (0.1-1.0); Blood Urea Nitrogen 53 mg/dL (8-24); Bun/Creatinine Ratio 22.9 (12.0-20.0); CO2, Blood 14 mmol/L (21-32); Chloride, Blood 107 mmol/L (98-108); Creatinine, Blood 2.31 mg/dL (0.40-1.20); Ethanol (Alcohol), Blood, Med <3 mg/dL; Globulin, Blood 2.2 g/dL (2.2-4.0); Glomerular Filtration Rate 0 (60-); Glucose, Blood 382 mg/dL (70-99); Potassium, Blood 3.9 mmol/L (3.5-5.5); Sodium, Blood 139 mmol/L (136-145); Total Protein, Blood 3.8 g/dL (6.4-8.2); Troponin I 0.118 ng/mL (0.000-0.040)
[2020-06-09 23:17] LABS: U Amphetamine Screen Not Detected; U Barbituate Screen Not Detected; U Benzodiazapine Screen Not Detected; U Buprenorphine Screen Not Detected; U Cannabinoids Screen Not Detected; U Cocaine Screen Not Detected; U Methadone Screen Not Detected; U Methamphetamine Screen Not Detected; U Opiates Screen Not Detected; U Oxycodone Screen Not Detected; U Phencyclidine Screen Not Detected; U Propoxyphene Screen Not Detected
[2020-06-10 00:03] LABS: PCO2 Arterial 38.7 mmHg (35-45); PO2 Arterial 93.3 mmHg (80-100)
[2020-06-10 01:47] LABS: pH Blood Arterial 7.02 (7.35-7.45)
[2020-06-10 05:51] LABS: Vancomycin, Random 16.2 ug/mL
--- NOTE | 2020-06-10 06:50 | NUR ---
ASSUMED PT CARE/END OF SHIFT SUMMARY PT ARRIVED ON UNIT VIA GURNEY AT 0200. VENT AC 16, VT 375, PEEP 8, FIO2 70%; BIOX >90%. PROPOFOL AT 15MCG/KG/MIN. LEVOPHED AT 8MCG/MIN. SODIUM BICARB AT 150ML/HR. PROTONIX AT 10MLS/HR. PT UNRESPONSIVE; THEREFORE, TURNED PROPOFOL OFF. PT REMAINED UNRESPONSIVE, PUPILS FIXED AT 5MM, AND EQUAL. PER REPORT NO PARALYTICS WERE GIVEN FOR INTUBATION; HOWEVER, PLANTAR REFLEXES REMAIN ABSENT. THEREFORE, CALLED DR. TARANGO WITH UPDATE REGARDING TURNING PROPOFOL OFF AND NEURO STATUS; NEW ORDER FOR CT WITHOUT CONTRAST. DURING PORTABLE CXR THIS MORNING PT'S EYES DID OPEN WITH NOXIOUS STIMULUS; HOWEVER, DID NOT FOLLOW COMMANDS. PUPILS REMAIN FIXED. VENT SETTINGS DOWN TO AC 16, VT 375, PEEP 5, FIO2 55% WITH BIOX >90%. OG HOOKED TO LIS WITH NO OUTPUT NOTED. PER DR. TARANGO PT WAS PLACED ON PROTONIX GTT D/T LARGE AMOUNTS OF BLOODY SECRETIONS NOTED IN OG S/P INTUBATION. HOWEVER, NO OUTPUT NOTED WITH NO INDICATION OF FURTHER BLEEDING. VSS, SEE FLOWSHEET. PT REMAINED IN NSR WITH HR 70'S. BP'S LABILE. LEVOPHED TITRATED FROM 1-4 MCG/MIN; HOWEVER, CURRENTLY ON STANDBY AT THIS TIME. PT APPEARS TO HAVE A SUBCUTANEOUS PUMP OF SOME SORT TO RIGHT UPPER QUADRANT. ESTABLISHED LEFT AKA AND RIGHT 4TH AND 5TH DIGIT AMPUTATIONS. PT HAS A STAGE 2 TO COCCYX, AN UNSTAGEABLE TO RIGHT OUTER ASPECT OF FOOT WHERE 5TH DIGIT AMPUTATION OCCURRED, WELL A DEEP TISSUE INJURY TO RIGHT GREAT TOE; SEE PHOTOS AND SHIFT SUMMARY FOR WOUND ASSESSMENTS. ALL WOUNDS CLEANSED AND DRESSINGS APPLIED ACCORDINGLY. PT STARTED ON EXTERNAL COOLING UPON ARRIVAL TO UNIT WITH TARGET TEMP OF 32 DEGREES CELSIUS; PT IS CURRENTLY AROUND 34 DEGREES CELSIUS. JIMÉNEZ CATH PUT OUT APPROXIMATELY 350CC IN URINE; CLOUDY MEME. HD CATH TO RIGHT UPPER CHEST IS BARELY HANGING ON BY SUTURES WITH REDNESS SURROUNDING INSERTION SITE; DRESSING IS INTACT TO LUMENS. WILL CONTINUE TO MONITOR UNTIL REPORT IS HANDED OFF TO ONCOMING RN.
--- NOTE | 2020-06-10 07:30 | NUR ---
Assumed care of pt at 0700. Bedside report received from Jose PORTER. Propofol off. Levophed off. Bicarb and protonix infusing per orders. On assessment, pt does not have a gag or cough. No corneal reflex. Dolls eyes absent. Pupils are equal and round. No reaction to light. Pt breathing over ventilator, RR 30. Ventilator settings AC 16/375/5/55%. SpO2 90% or greater. ETT 8.0, 23 cm ATT. Cooling blanket in place. Temperature is at target (32 C - 34 C). Ordonez catheter in place draining yellow urine, cloudy. Pt has dialysis catheter to right chest wall- VIELKA. Insertion site is inflammed. Site assessed by square shear operatorLouisa. This RN cleaned site with chlorhexidine and dressed site with tegaderm CHG. Plan for pt to have dialysis today. Absent BT. OG tube in place to LIS. Small amount of red/brown drainage from OG tube.
[2020-06-10 08:52] LABS: Hematocrit 31.1 % (33.0-51.0); Hemoglobin 10.8 g/dL (11.5-16.0); Mean Corpuscular HGB Conc 34.7 g/dL (31.5-36.5); RDW Coefficient Variation 18.9 % (11.7-14.2); RDW Standard Deviation 61.2 fL (35.1-46.3); Red Blood Cell Count 3.37 M/mm3 (3.80-5.20); White Blood Cell Count 8.95 K/mm3 (4.00-11.30)
[2020-06-10 09:11] LABS: Mean Corpuscular Volume 92 fL (80-100); Mean Platelet Volume 13.8 fL (9.1-12.4)
[2020-06-10 09:17] LABS: Albumin, Blood 2.2 g/dL (3.4-5.0); Albumin/Globulin Ratio 0.8 (0.8-1.8); Bilirubin, Total 1.5 mg/dL (0.1-1.0); Bun/Creatinine Ratio 21.9 (12.0-20.0); Calcium, Blood 7.8 mg/dL (8.5-10.1); Creatinine, Blood 2.74 mg/dL (0.40-1.00); Globulin, Blood 2.8 g/dL (2.2-4.0); Magnesium, Blood 1.7 mg/dL (1.6-2.4); Platelet Count 49 K/mm3 (150-400); Potassium, Blood 4.5 mmol/L (3.5-5.5)
--- NOTE | 2020-06-10 09:18 | NUR ---
ADMIT: 06/09/20 DISCHARGE: DX: cardiac arrest with resuscitation en route. CC: [email or web address] ADMIT: 05/17/20 DISCHARGE: 05/18/20 DX: SYNCOPE CC: CPEABODY ADMIT: 02/13/20 DISCHARGE: 02/24/20DX: HYPERGLYCEMIA CC: CPEABODY ADMIT:02/03/20 DISCHARGE: 02/06/20 DX: HYPOGLYCEMIA CC: CPEABODY SAMIRA CALL: Yoan allen RESIDENCE: Home with spouse CAREGIVER: Yoan Monsalve, Spouse / Partner, . nurse healthcare manager DX: TYPE 1 DM, CKD STAGE 4, CHRONIC HYPOTENSION, TIA, AMPUTATION SEE PROBLEN'S LIST. DME: DM supplies, Wheelchair, toileting supplies, commode, shower chair, wound care supplies, O2 and supplies CCM: 04/13/2016 REFERRED FOR TYPE 1 DM. HOME HEALTH:[facility] - RESUME 05/18/20 MADE CONTACT WITH TOMAS AT [facility]
[2020-06-10 10:06] LABS: BAND PERCENT MAN 20 % (0-8); BASOPHILS PERCENT MAN 0 % (0-2); EOSINOPHILS PERCENT MAN 0 % (0-6); LYMPHOCYTES ABSOLUTE MAN 0.08 K/mm3 (0.84-5.20); LYMPHOCYTES PERCENT MAN 1 % (21-46); MONOCYTES ABSOLUTE MAN 0.44 K/mm3 (0.16-1.47); MONOCYTES PERCENT MAN 5 % (4-13); NEUTROPHILS ABSOLUTE MAN 8.41 K/mm3 (1.96-9.15); SEG NEUTROPHILS PERCENT MAN 74 % (41-73); TOTAL CELLS COUNTED 100
--- NOTE | 2020-06-10 13:11 | NUR ---
Critical high blood sugar. Discussed with Dr Andersen. Also discussed that blood sugar was elevated with 0800 draw. Discussed that bicarb is in D5 and discussed current rate. Orders given for high SS regular insulin.
[2020-06-10 13:55] LABS: Glucose, Blood 623 mg/dL (70-99)
--- NOTE | 2020-06-10 14:35 | NUR ---
Pt's spouse in to see patient. He states that pt was not feeling very well. States the patient was drowsy and he thought this was expected considering she had a procedure done yesterday and pt has recently restarted dialysis. He states that after she went to bed, he checked on her because her blood glucose sensor was due to be changed. When he checked on her, she was pale and unresponsive. He details that EMS started CPR when they arrived. Pt's spouse updated on plan of care. Dr Andersen in to see patient. No new orders at this time.
--- NOTE | 2020-06-10 14:40 | NUR ---
GASTRIC STIMULATOR Pt has a hard mass to RUQ, that feels like an implanted device. This RN asked pt's spouse about the device. It is a gastric stimulator for gastroparesis. He states that pt has no sensation from upper abdomen- downwards.
--- NOTE | 2020-06-10 15:23 | NUR ---
Pt's spouse updated on head CT results by Dr Andersen. Pt's spouse upset and meeting with palliative care RN, Annita and ski patrol director, Lina. Pt's spouse states he does not want to make any decisions without the pt's sons present. This RN placed call to pt's son Florentino and asked him to see patient. Florentino will notify pt's other son, Ozzie, and he will visit as well.
--- NOTE | 2020-06-10 16:03 | NUR ---
Spiritual care note: Pt and spouse known to me from previous admissions. Yoan responded well to gentle financial health counselor and prayer for a clear path. "I don't want to be the one to make this decision." This is the second he has lost to illness in 5 years. He is clearly overwhelmed and understandably tearful. He admits that Clare has told him that she would not want to continue if her QOL got "much worse." He also admits, "she's been miserable" lately. Advised that it was then Clare's decision and he only had to honor her stated wishes. Clare's 2 sons are on the way. One is a local machine bander and cellophaner helper. Director Veterinary Alber Ortiz is also familiar with Yoan, as he was present for Yoan's previous 's . I will remain available.
--- NOTE | 2020-06-10 16:29 | NUR ---
Spiritual care visit conducted. Patient's family are bedside. Spouse, Yoan is tearful and shares easily about the patient and their life together. Patient's sons, Florentino and Ozzie talk about the rough life their mom has had (from bad relationships to many medical issues including amputations and 5 back surgeries in the last 2 yrs). After talking with Dr. Andersen, the family is in agreement to withdraw care and make patient comfort care only. I conduct a life review, normalize their experience and provide pastoral care and prayer. The family shows signs of having peace in their decision and voice appreciation for the spiritual care visit. I will continue to remain available to patient and family.
[2020-06-10 16:32] LABS: Mean Corpuscular HGB Conc 35.5 g/dL (31.5-36.5); Mean Corpuscular Volume 90 fL (80-100); RDW Coefficient Variation 18.6 % (11.7-14.2); Red Blood Cell Count 3.44 M/mm3 (3.80-5.20); White Blood Cell Count 12.03 K/mm3 (4.00-11.30)
[2020-06-10 16:37] LABS: Platelet Count 39 K/mm3 (150-400)
[2020-06-10 16:44] LABS: Magnesium, Blood 1.7 mg/dL (1.6-2.4)
[2020-06-10 16:51] LABS: BAND PERCENT MAN 25 % (0-8); BASOPHILS PERCENT MAN 0 % (0-2); EOSINOPHILS PERCENT MAN 0 % (0-6); LYMPHOCYTES ABSOLUTE MAN 0.24 K/mm3 (0.84-5.20); LYMPHOCYTES PERCENT MAN 2 % (21-46); MONOCYTES PERCENT MAN 0 % (4-13); NEUTROPHILS ABSOLUTE MAN 11.78 K/mm3 (1.96-9.15); SEG NEUTROPHILS PERCENT MAN 73 % (41-73); TOTAL CELLS COUNTED 100
[2020-06-10 16:58] LABS: Calcium, Blood 7.7 mg/dL (8.5-10.1); Creatinine, Blood 2.77 mg/dL (0.40-1.00); Potassium, Blood 3.9 mmol/L (3.5-5.5)
--- NOTE | 2020-06-10 17:45 | NUR ---
EXTUBATION Extubated at 1733 with RT Flores. Pt was given 2 mg ativan prior to extubation for comfort and prevention of seziure given severe cerebral edema. Pt tolerated extubation well- OG tube removed at this time. Pt's spouse, two children, and spouses of two children immdiately into room after extuabation. Agreed that patient looked comfortable.
--- NOTE | 2020-06-10 18:39 | NUR ---
SUMMARY Pt is comfort care at this time. Family at bedside. Pt has maurice catheter. Central line remains in place for IV medication. Pt does not have signs of anxiety, pain. No audible secretions. No tactile fever. Family agrees that pt appears comfortable. Will continue to closely monitor until care handoff and bedside report with oncoming RN.
--- NOTE | 2020-06-10 19:36 | NUR ---
Pt met with Dr Palafox for review of diagnostics and prognosis. Pt wanted her children to be present and speak with doctor and review plan and participate in the plan of care. Family decided on comfort care. pt had narcotic allergies listed on her emar. Review with and sons states they made her to somulent and slightly nauseated. Review with physician and narcotics placed if needed for end of life care to minimize any potential suffering from air hunger.Incubator Tender is with family.
--- NOTE | 2020-06-10 19:55 | NUR ---
PT. RESTING COMFORTABLY, BREATHING SHALLOW, FAMILY AT BEDSIDE. NO INTERVENTIONS AT THIS TIME, WILL CONTINUE TO MONITOR.
--- NOTE | 2020-06-10 19:56 | NUR ---
PT. BREATHING SHALLOW, RESTING COMFORTABLY. FAMILY AT BEDSIDE. NO INTERVENTIONS AT THIS TIME. WILL CONTINUE TO MONITOR.
--- NOTE | 2020-06-10 21:04 | NUR ---
REPORT RECEIVED FROM CHARLOTTE KITCHEN; PT ON COMFORT CARE MEASURES.
--- NOTE | 2020-06-10 21:22 | NUR ---
PT. TRANSFERRED TO ROOM 359 @ 21:05. REPORT GIVEN TO CHARLOTTE BENITEZ. IT HAS BEEN A PLEASURE TAKING CARE OF THIS PATIENT.
== END 2020-06-11 01:00 | DRG 308 ==
LOC: ER 22:19 → MEDS 06-10 00:05 → ICUW 06-10 00:05 → MEDS 06-10 21:15
PROVIDERS: Family Medicine; Internal Medicine Critical Care Medicine; Student in an Organized Health Care Education/Training Program; ADMIT Internal Medicine
PROC: 04HK33Z Insertion of Infusion Device into Right Femoral Artery, Percutaneous Approach (ICD-10-PCS; principal; 2020-06-09)
PROC: 3E053XZ Introduction of Vasopressor into Peripheral Artery, Percutaneous Approach (ICD-10-PCS; 2020-06-09)
PROC: 30233N1 Transfusion of Nonautologous Red Blood Cells into Peripheral Vein, Percutaneous Approach (ICD-10-PCS; 2020-06-09)
PROC: 0BH18EZ Insertion of Endotracheal Airway into Trachea, Via Natural or Artificial Opening Endoscopic (ICD-10-PCS; 2020-06-09)
PROC: 5A1935Z Respiratory Ventilation, Less than 24 Consecutive Hours (ICD-10-PCS; 2020-06-09)
DX: I49.01 Ventricular fibrillation (principal); N18.6 End stage renal disease; G93.5 Compression of brain; R65.11 Systemic inflammatory response syndrome (SIRS) of non-infectious origin with acute organ dysfunction; J96.90 Respiratory failure, unspecified, unspecified whether with hypoxia or hypercapnia; E87.4 Mixed disorder of acid-base balance; G93.1 Anoxic brain damage, not elsewhere classified; I46.2 Cardiac arrest due to underlying cardiac condition; Z66 Do not resuscitate; Z89.612 Acquired absence of left leg above knee; Z99.2 Dependence on renal dialysis; Z51.5 Encounter for palliative care; I25.2 Old myocardial infarction; F31.9 Bipolar disorder, unspecified; Z86.73 Personal history of transient ischemic attack (TIA), and cerebral infarction without residual deficits; Z79.4 Long term (current) use of insulin; G40.909 Epilepsy, unspecified, not intractable, without status epilepticus; E03.9 Hypothyroidism, unspecified; J44.9 Chronic obstructive pulmonary disease, unspecified; E10.42 Type 1 diabetes mellitus with diabetic polyneuropathy; E10.43 Type 1 diabetes mellitus with diabetic autonomic (poly)neuropathy; E10.51 Type 1 diabetes mellitus with diabetic peripheral angiopathy without gangrene; Z78.1 Physical restraint status; D64.9 Anemia, unspecified
CPT/HCPCS: 31500; 36415; 36430; 36556; 36600; 51702; 70450; 71045; 80047; 80048; 80053; 80202; 81001; 82803; 82947; 83605; 83690; 83735; 84100; 84145; 84443; 84484; 85014; 85025; 86850; 86900; 86901; 86923; 87040; 87086; 93005; 93010; 93306; 94002; 96365-59; 96366-59; 96368; 96375-59; 99291-25; A9270; C1751; C9113; G0480; J0696; J1815; J2060; J2543; J2704; J3370; J7030; J7040; J7060; J7070; P9016